=== PATIENT | male | born 1940 | race Caucasian/White ===

== ENCOUNTER 2016-07-25 08:56 | Inpatient (IN) | payer MEDICARE ==
[2016-07-25 09:33] LABS: ABSOLUTE BASOPHILS # (AUTO) 0.2 10^3/uL (0.0-0.2); ABSOLUTE EOSINOPHILS # (AUTO) 0.1 10^3/uL (0.0-0.6); ABSOLUTE LYMPHOCYTES (AUTO) 1.4 10^3/uL (0.5-4.7); ABSOLUTE MONOCYTES (AUTO) 1.5 10^3/uL (0.1-1.4); EOSINOPHILS % (AUTO) 0.7 % (0-6); HEMATOCRIT 36.1 % (37.9-51.0); HEMOGLOBIN 11.8 g/dL (13.5-17.0); HGB HCT DIFFERENCE -0.7; MEAN CORPUSCULAR HEMOGLOBIN 26.2 pg (27.0-33.4); MEAN CORPUSCULAR HGB CONC 32.5 g/dL (32.0-36.0); MEAN CORPUSCULAR VOLUME 81 fl (80-97); RED BLOOD COUNT 4.49 10^6/uL (4.35-5.55); SEGMENTED NEUTROPHILS % (AUTO) 81.3 % (42-78); WHITE BLOOD COUNT 17.2 10^3/uL (4.0-10.5)
[2016-07-25 09:41] LABS: VENOUS BLOOD BASE EXCESS -0.4 mmol/L; VENOUS BLOOD HCO3 24.6 mmol/L (20-32); VENOUS BLOOD PCO2 41.3 mmHg (35-63); VENOUS BLOOD PH 7.39 (7.30-7.42)
[2016-07-25 09:54] LABS: PARTIAL THROMBOPLASTIN TIME 34.9 SEC (23.5-35.8); PROTHROMBIN TIME 14.1 SEC (11.4-15.4)
[2016-07-25 09:55] LABS: ALANINE AMINOTRANSFERASE 20 U/L (21-72); ALBUMIN 3.5 g/dL (3.5-5.0); ALKALINE PHOSPHATASE 595 U/L (38-126); ANION GAP 13 (5-19); ASPARTATE AMINO TRANSFERASE 23 U/L (17-59); BILIRUBIN,TOTAL 0.8 mg/dL (0.2-1.3); BLOOD UREA NITROGEN 20 mg/dL (7-20); CALCIUM 9.2 mg/dL (8.4-10.2); CARBON DIOXIDE 25 mmol/L (22-30); CHLORIDE 102 mmol/L (98-107); CREATINE KINASE 53 U/L (55-170); CREATININE RESULT 1.91 mg/dL (0.52-1.25); GLUCOSE 242 mg/dL (75-110); POTASSIUM 4.7 mmol/L (3.6-5.0); SODIUM 140.4 mmol/L (137-145); TOTAL PROTEIN 6.1 g/dL (6.3-8.2)
[2016-07-25 10:04] LABS: CREATINE KINASE MB 0.89 ng/mL (<4.55)
[2016-07-25 10:07] LABS: TROPONIN I 0.065 ng/mL
[2016-07-25 11:20] LABS: APPEARANCE,URINE SLIGHTLY-CLOUDY; BILIRUBIN,URINE NEGATIVE (NEGATIVE); GLUCOSE, URINE NEGATIVE (NEGATIVE); KETONES,URINE NEGATIVE (NEGATIVE); LEUKOCYTE ESTERASE,URINE NEGATIVE (NEGATIVE); NITRITE,URINE NEGATIVE (NEGATIVE); PROTEIN,URINE 30 mg/dL (NEGATIVE); URINE SPECIFIC GRAVITY 1.018; UROBILINOGEN,URINE NEGATIVE mg/dL (<2.0)
[2016-07-25] MEDS ORDERED: IPRATROPIUM/ALBUTEROL 0.5-2.5 MG/3 ML AMPUL NEB ONE (11:33)
[2016-07-25] MEDS ORDERED: CEFTRIAXONE 1 GM/D5W RTU 50 ML IV ONE (12:52)
--- NOTE | 2016-07-25 12:57 | ER Document Report ---
ED Respiratory Problem - General Chief Complaint: Shortness Of Breath Stated Complaint: DIFFICULTY BREATHING Mode of Arrival: Medic Information source: Patient, Relative - Son Notes: 75-year-old male presents to the emergency department via EMS complaining of shortness of breath. Patient has extensive history including CHF, pacemaker, hypertension, and type II diabetes. Per son patient is not very compliant with medication regimen. Patient reports over the last week has had progressively worsening cough and shortness of breath with associated orthopnea. Reports cough is productive with green and white sputum. Denies fever, chest pain, nausea or vomiting, or diaphoresis. TRAVEL OUTSIDE OF THE [place] IN LAST 30 DAYS: No - HPI Patient complains to provider of: Cough, Short of breath Duration: Worse/persistent Quality of pain: No pain Context: Hx CHF Short of Breath: Mild Cough: Productive Sputum amount: Moderate Sputum color: Green, White Similar symptoms previously: Yes Recently seen / treated by doctor: No - Related Data Allergies/Adverse Reactions: No Known Allergies Allergy (Unverified 07/09/15 12:32) Home Medications: Current Home Medications Amiodarone HCl [Cordarone 200 mg Tablet] 200 mg PO DAILY 07/25/16 [History] Aspirin [Aspirin 325 mg Tablet] 325 mg PO DAILY 07/25/16 [History] Carvedilol [Coreg 12.5 mg Tablet] 12.5 mg PO BID 07/25/16 [History] Digoxin [Lanoxin 0.125 mg Tablet] 0.125 mg PO DAILY 07/25/16 [History] Glimepiride [Amaryl 4 mg Tablet] 4 mg PO BID 07/25/16 [History] Potassium Chloride [K-Tab ER] 20 meq PO DAILY 07/25/16 [History] Simvastatin [Zocor 20 mg Tablet] 20 mg PO QHS 07/25/16 [History] Spironolactone [Aldactone 25 mg Tablet] 25 mg PO QPM 07/25/16 [History] Warfarin Sodium [Coumadin 5 mg Tablet] 5 mg PO QHS 07/25/16 [History] Past Medical History - General Information source: Patient, Relative, Emergency Med Personnel - Social History Smoking Status: Unknown if Ever Smoked Frequency of alcohol use: None Drug Abuse: None Lives with: Alone Family History: Reviewed & Not Pertinent - Past Medical History Cardiac Medical History: Reports: Hx Atrial Fibrillation, Hx Congestive Heart Failure, Hx Heart Attack, Hx Hypertension Endocrine Medical History: Reports: Hx Diabetes Mellitus Type 2 Past Surgical History: Reports: Hx Cardiac Surgery - cabg - Immunizations Hx Diphtheria, Pertussis, Tetanus Vaccination: Yes Review of Systems - Review of Systems Constitutional: See HPI EENT: See HPI Cardiovascular: No symptoms reported Respiratory: See HPI Gastrointestinal: No symptoms reported Genitourinary: No symptoms reported Male Genitourinary: No symptoms reported Musculoskeletal: No symptoms reported Skin: No symptoms reported Hematologic/Lymphatic: No symptoms reported Neurological/Psychological: No symptoms reported -: Yes All other systems reviewed and negative Physical Exam - Vital signs Vitals: Resp Pulse Ox 23 H 93 07/25/16 09:15 07/25/16 09:15 - General General appearance: Appears well, Alert In distress: None - HEENT Head: Normocephalic, Atraumatic Eyes: Normal Pupils: PERRL - Respiratory Respiratory status: No respiratory distress. No: Labored, Tachypnea Chest status: Nontender Breath sounds: Productive cough, Rhonchi - Mild scattered bilaterally, Wheezing - Mild expiratory Chest palpation: Normal - Cardiovascular Rhythm: Regular Heart sounds: Normal auscultation Pulses: Normal: Radial Normal capillary refill: Yes - Abdominal Inspection: Normal Distension: No distension Bowel sounds: Normal Tenderness: Nontender Organomegaly: No organomegaly - Back Back: Normal, Nontender - Extremities General upper extremity: Normal inspection, Nontender, Normal color, Normal ROM , Normal strength, Normal temperature. No: Tender, Edema General lower extremity: Normal inspection, Nontender, Edema - Mild +1 bilateral lower extremity, Normal color, Normal ROM, Normal strength, Normal temperature, Normal weight bearing. No: Tender, Satnam's sign - Neurological Neuro grossly intact: Yes Cognition: Normal Orientation: AAOx4 John Coma Scale Eye Opening: Spontaneous Dalton Coma Scale Verbal: Oriented John Coma Scale Motor: Obeys Commands John Coma Scale Total: 15 Speech: Normal Cranial nerves: Normal Cerebellar coordination: Normal Motor strength normal: LUE, RUE, LLE, RLE Additional motor exam normals: Equal science specialist Sensory: Normal - Skin Skin Temperature: Warm Skin Moisture: Dry Skin Color: Normal Course - Re-evaluation Re-evalutation: 07/25/16 12:45 Patient hemodynamically stable, in no distress, wheezing and rhonchi resolved after DuoNeb. Patient able to ambulate steadily and without assistance on room air without significant dyspnea however O2 saturation remains at 90% on room air. Labs show acute renal failure and chest x-ray questionable for possible pneumonia. Patient presentation and findings with hospitalist Dr. Mccullough who agrees to evaluate patient in the emergency department, assume care, and admit to inpatient telemetry unit. ED physician Dr. Zapata evaluated patient and was collaborated with during evaluation, treatment, and plan. 07/25/16 15:[address] Mccullough aware of patient's repeat troponin. Continue admission plan. - Vital Signs Vital signs: Temp Pulse Resp BP Pulse Ox 98.1 F 41 L 18 117/57 L 98 07/26/16 10:39 07/26/16 10:39 07/26/16 10:39 07/26/16 10:39 07/26/16 10:39 - Laboratory Result Diagrams: 07/26/16 06:30 07/26/16 03:45 Laboratory results interpreted by me: 07/25/16 07/25/16 07/25/16 09:09 09:09 09:09 WBC 17.2 H Hgb 11.8 L Hct 36.1 L MCH 26.2 L RDW 16.0 H Seg Neutrophils % 81.3 H Lymphocytes % 8.0 L Absolute Neutrophils 14.0 H Absolute Monocytes 1.5 H Creatinine 1.91 H Est GFR ( Amer) 42 L Est GFR (Non-Af Amer) 35 L Glucose 242 H ALT 20 L Alkaline Phosphatase 595 H Creatine Kinase 53 L NT-Pro-B Natriuret Pep 4300 H Total Protein 6.1 L Urine Protein Digoxin 07/25/16 07/25/16 09:09 10:48 WBC Hgb Hct MCH RDW Seg Neutrophils % Lymphocytes % Absolute Neutrophils Absolute Monocytes Creatinine Est GFR ( Amer) Est GFR (Non-Af Amer) Glucose ALT Alkaline Phosphatase Creatine Kinase NT-Pro-B Natriuret Pep Total Protein Urine Protein 30 H Digoxin 0.48 L - Diagnostic Test Radiology reviewed: Image reviewed, Reports reviewed - EKG Interpretation by Me EKG shows normal: Sinus rhythm Rate: Normal - paced When compared to previous EKG there are: No significant change Discharge - Discharge Clinical Impression: SOB (shortness of breath) Condition: Stable Disposition: ADMITTED INPATIENT Admitting Provider: Hospitalist - [facility] Admitted: Telemetry
[2016-07-25] MEDS ORDERED: ONDANSETRON HCL INJ/PF 4 MG/2 ML SDV IV PRN (13:38)
[2016-07-25] MEDS ORDERED: ALBUTEROL SULFATE 0.083% NEB 2.5 MG/3 ML AMPUL NEB PRN (13:38)
[2016-07-25] MEDS ORDERED: ONDANSETRON 4 MG TAB.RAPDIS PO PRN (13:38)
[2016-07-25] MEDS ORDERED: DEXTROSE 40% GEL 15 GM TUBE PO PRN ×2 (13:47)
[2016-07-25] MEDS ORDERED: DEXTROSE 50%-WATER 25 GM/50 ML DISP.SYRIN IV PRN ×2 (13:47)
[2016-07-25] MEDS ORDERED: GLUCAGON,HUMAN RECOMB 1 MG INJ IM PRN (13:47)
--- NOTE | 2016-07-25 14:12 | PDOC H&P ---
History of Present Illness Admission Date/PCP: 07/25/16 13:35 STEFANIE CHING MD Patient complains of: Cough and shortness of breath. History of Present Illness: DIEGO CHING is a 75 year old male with history of congestive heart failure as well as atrial fibrillation and diabetes who presents with a 3 to four-day history of worsening shortness of breath. Patient reports that he is felt short of breath mostly with exertion but also at rest. He has had palpitations as well as a productive cough. Patient reports this morning a temperature of 101. He also relates having orthopnea and PND as well as worsening lower extremity edema. He does not weigh himself and has a history of noncompliance and previous state most of his nighttime medications. The patient denies having any chest pain. He does have palpitations but denies any firing off of his defibrillator. Patient has not been checking his blood sugars but has been taking his oral hypoglycemic agents. Past Medical History Cardiac Medical History: Reports: Atrial Fibrillation, Congestive Heart Failure , Myocardial Infarction, Hypertension Pulmonary Medical History: Reports: None EENT Medical History: Reports: None Neurological Medical History: Reports: None Endocrine Medical History: Reports: Diabetes Mellitus Type 2 Renal/ Medical History: Reports: None Malignancy Medical History: Reports: Skin Cancer GI Medical History: Reports: None Musculoskeltal Medical History: Reports: None Psychiatric Medical History: Reports: None Traumatic Medical History: Reports: None Hematology: Reports: None Infectious Medical History: Reports: None Past Surgical History Past Surgical History: Reports: Internal Defibrillator, Pacemaker Social History Information Source: Patient Lives with: Alone Smoking Status: Never Smoker Frequency of Alcohol Use: None Hx Recreational Drug Use: No Drugs: None Hx Prescription Drug Abuse: No - Advance Directive Resuscitation Status: Full Code Surrogate healthcare decision maker:: His son is his surrogate healthcare Family History Family History: Father at age 76 and had CVA and diabetes. Mother at age 64 from coronary artery disease. Parental Family History Reviewed: Yes Children Family History Reviewed: No Sibling(s) Family History Reviewed.: No Medication/Allergy Home Medications: Amiodarone HCl [Cordarone 200 mg Tablet] 200 mg PO DAILY 07/09/15 Aspirin [Aspirin 325 mg Tablet] 325 mg PO DAILY 07/09/15 Carvedilol [Carvedilol] 12.5 mg PO BID 07/09/15 Digoxin [Digox] 0.25 mg PO DAILY 07/09/15 Furosemide [Furosemide] 20 mg PO DAILY 07/09/15 Glimepiride [Glimepiride] 4 mg PO BID 07/09/15 Metformin HCl [Glucophage] 1,000 mg PO BID 07/09/15 Potassium Bicarbonate/Cit AC [Potassium 25 Meq Tab Eff] 25 meq PO DAILY Simvastatin [Simvastatin] 20 mg PO DAILY 07/09/15 Spironolactone [Aldactone 25 mg Tablet] 25 mg PO DAILY 07/09/15 Warfarin Sodium [Coumadin] 2.5 mg PO DAILY 07/09/15 Allergies/Adverse Reactions: No Known Allergies Allergy (Unverified 07/09/15 12:32) Review of Systems Constitutional: PRESENT: fever(s). ABSENT: chills, headache(s), weight gain, weight loss Eyes: ABSENT: visual disturbances Ears: ABSENT: hearing changes Cardiovascular: PRESENT: dyspnea on exertion, edema, orthropnea, palpitations. ABSENT: chest pain Respiratory: PRESENT: cough, dyspnea, sputum. ABSENT: hemoptysis Gastrointestinal: ABSENT: abdominal pain, constipation, diarrhea, hematemesis, hematochezia, nausea, vomiting Genitourinary: ABSENT: dysuria, hematuria Musculoskeletal: ABSENT: joint swelling Neurological: ABSENT: abnormal gait, abnormal speech, confusion, dizziness, focal weakness, syncope Psychiatric: ABSENT: anxiety, depression Endocrine: ABSENT: cold intolerance, heat intolerance, polydipsia, polyuria Hematologic/Lymphatic: ABSENT: easy bleeding, easy bruising Physical Exam Vital Signs: Temp Pulse Resp BP Pulse Ox 98.6 F 81 18 139/90 H 93 07/25/16 09:19 07/25/16 09:19 07/25/16 12:01 07/25/16 12:01 07/25/16 12:01 General appearance: PRESENT: no acute distress Eye exam: PRESENT: conjunctiva pink, EOMI, PERRLA. ABSENT: scleral icterus Ear exam: ABSENT: normal external ear exam - Missing the upper part of his left pinna Neck exam: ABSENT: carotid bruit, JVD, lymphadenopathy, thyromegaly Respiratory exam: PRESENT: rhonchi - Coarse rhonchi bilaterally.. ABSENT: rales , wheezes Cardiovascular exam: PRESENT: RRR. ABSENT: diastolic murmur, rubs, systolic murmur Pulses: PRESENT: normal dorsalis pedis pul Vascular exam: PRESENT: normal capillary refill GI/Abdominal exam: PRESENT: normal bowel sounds, soft. ABSENT: distended, guarding, mass, organolmegaly, rebound, tenderness Rectal exam: PRESENT: deferred Extremities exam: PRESENT: +1 edema. ABSENT: calf tenderness, clubbing Neurological exam: PRESENT: alert, awake, oriented to person, oriented to place , oriented to time, oriented to situation, CN II-XII grossly intact. ABSENT: motor sensory deficit Psychiatric exam: PRESENT: appropriate affect Skin exam: PRESENT: other - Left nares is missing from surgical procedure Results Impressions: Chest X-Ray 07/25/16 08:58 IMPRESSION: Probable scarring in the lateral right lung base. No focal infiltrates. Cardiomegaly. No pulmonary vascular distention. Assessment & Plan - Diagnosis (1) CHF exacerbation Qualifiers: Congestive heart failure type: systolic Qualified Code(s): I50.23 - Acute on chronic systolic (congestive) heart failure Is this a current diagnosis for this admission?: YesPlan: Patient has a history of systolic congestive heart failure. The patient has evidence for volume overload with lower extremity edema orthopnea and PND. We will give IV Lasix. Confounding his treatment may be his elevated creatinine. His creatinine is elevated from his baseline a year ago. Will watch this closely as we diurese. (2) Bronchitis Is this a current diagnosis for this admission?: YesPlan: Patient has had a low-grade fever as well as a productive cough. We'll give Rocephin (3) Diabetes mellitus Is this a current diagnosis for this admission?: YesPlan: Will hold his oral agents and cover with sliding scale insulin. (4) Atrial fibrillation Is this a current diagnosis for this admission?: YesPlan: Patient is on amiodarone as well as having a defibrillator and pacemaker. We' ll continue with his amiodarone and Coreg as well as Coumadin. He is subtherapeutic on his Coumadin. (5) Hypertension Qualifiers: Hypertension type: other secondary hypertension Qualified Code(s): I15.8 - Other secondary hypertension Is this a current diagnosis for this admission?: YesPlan: Continue with the Coreg, Lasix, Aldactone. (6) Anticoagulated Is this a current diagnosis for this admission?: YesPlan: Patient is chronically on Coumadin however he recall he forgets to take this. We will give Lovenox until he is therapeutic again on his Coumadin. (7) Acute renal failure Is this a current diagnosis for this admission?: YesPlan: Patient's creatinine is elevated from last year. Will watch this closely as we diurese. - Time Time Spent: 50 to 70 Minutes - Inpatient Certification Medical Necessity: Need Close Monitoring Due to Risk of Patient Decompensation - Plan Summary Plan Summary: Patient will be admitted as a inpatient as I anticipate he will require greater than a 2 midnight hospital stay to treat his acute congestive heart failure.
[2016-07-25 15:05] LABS: HEMATOCRIT 36.4 % (37.9-51.0); HGB HCT DIFFERENCE -0.4; MEAN CORPUSCULAR HEMOGLOBIN 26.3 pg (27.0-33.4); MEAN CORPUSCULAR HGB CONC 32.9 g/dL (32.0-36.0); MEAN CORPUSCULAR VOLUME 80 fl (80-97); RED BLOOD COUNT 4.56 10^6/uL (4.35-5.55); RED CELL DISTRIBUTION WIDTH 16.1 % (11.5-14.0); WHITE BLOOD COUNT 16.4 10^3/uL (4.0-10.5)
[2016-07-25 15:10] LABS: PARTIAL THROMBOPLASTIN TIME 34.8 SEC (23.5-35.8); PROTHROMBIN TIME 14.8 SEC (11.4-15.4)
[2016-07-25 15:24] LABS: CREATINE KINASE 56 U/L (55-170); CREATININE RESULT 1.77 mg/dL (0.52-1.25)
[2016-07-25 15:38] LABS: CREATINE KINASE MB 1.22 ng/mL (<4.55)
[2016-07-25 15:46] LABS: TROPONIN I 0.211 ng/mL
[2016-07-25] MEDS: ACETAMINOPHEN 325 MG TABLET PO PRN (18:24)
[2016-07-25] MEDS: INSULIN REG, HUMAN 100 UNIT/ML 3 ML VIAL (PYX) SUBCUT PRN (18:24)
[2016-07-25 20:06] LABS: CREATINE KINASE MB 1.25 ng/mL (<4.55)
[2016-07-25 20:13] LABS: TROPONIN I 0.247 ng/mL
[2016-07-25] MEDS: FAMOTIDINE 20 MG TABLET PO SCH (21:46)
[2016-07-25] MEDS: CARVEDILOL 6.25 MG TABLET PO SCH (21:47)
[2016-07-25] MEDS: FUROSEMIDE INJ/PF 40 MG/4 ML SDV IV SCH (21:48)
[2016-07-25] MEDS ORDERED: WARFARIN SODIUM 2.5 MG TABLET PO SCH (22:00)
[2016-07-25] MEDS ORDERED: SIMVASTATIN 10 MG TABLET PO SCH (22:00)
[2016-07-26] MEDS: ACETAMINOPHEN 325 MG TABLET PO PRN (00:35)
[2016-07-26 02:33] LABS: CREATINE KINASE MB 1.3 ng/mL (<4.55)
[2016-07-26 03:09] LABS: TROPONIN I 0.158 ng/mL
[2016-07-26 04:46] LABS: PROTHROMBIN TIME 13.9 SEC (11.4-15.4)
[2016-07-26 05:09] LABS: ANION GAP 12 (5-19); BLOOD UREA NITROGEN 29 mg/dL (7-20); CALCIUM 8.7 mg/dL (8.4-10.2); CARBON DIOXIDE 22 mmol/L (22-30); CHLORIDE 104 mmol/L (98-107); CREATININE RESULT 1.84 mg/dL (0.52-1.25); GLUCOSE 229 mg/dL (75-110); SODIUM 138.2 mmol/L (137-145)
[2016-07-26 07:14] LABS: ABSOLUTE EOSINOPHILS # (AUTO) 0.1 10^3/uL (0.0-0.6); ABSOLUTE LYMPHOCYTES (AUTO) 1.7 10^3/uL (0.5-4.7); ABSOLUTE MONOCYTES (AUTO) 1.1 10^3/uL (0.1-1.4); ABSOLUTE NEUT (AUTO) 8.5 10^3/uL (1.7-8.2); BASOPHILS % (AUTO) 0.4 % (0-2); EOSINOPHILS % (AUTO) 0.8 % (0-6); HEMATOCRIT 33.6 % (37.9-51.0); HEMOGLOBIN 11.1 g/dL (13.5-17.0); HGB HCT DIFFERENCE -0.3; LYMPHOCYTES % (AUTO) 14.9 % (13-45); MEAN CORPUSCULAR HEMOGLOBIN 26.4 pg (27.0-33.4); MEAN CORPUSCULAR VOLUME 80 fl (80-97); MONOCYTES % (AUTO) 9.8 % (3-13); RED BLOOD COUNT 4.21 10^6/uL (4.35-5.55); RED CELL DISTRIBUTION WIDTH 16.1 % (11.5-14.0); SEGMENTED NEUTROPHILS % (AUTO) 74.1 % (42-78); WHITE BLOOD COUNT 11.4 10^3/uL (4.0-10.5)
[2016-07-26] MEDS ORDERED: ENOXAPARIN SODIUM INJ 40 MG/0.4 ML DISP.SYRIN SUBCUT SCH (08:00)
[2016-07-26] MEDS: INSULIN REG, HUMAN 100 UNIT/ML 3 ML VIAL (PYX) SUBCUT PRN (08:24)
[2016-07-26] MEDS: CARVEDILOL 6.25 MG TABLET PO SCH (09:23)
[2016-07-26] MEDS: FAMOTIDINE 20 MG TABLET PO SCH (09:23)
[2016-07-26] MEDS: FUROSEMIDE INJ/PF 40 MG/4 ML SDV IV SCH (09:24)
--- NOTE | 2016-07-26 09:31 | EKG REPORT ---
SEVERITY:- ABNORMAL ECG - ATRIAL-SENSED VENTRICULAR-PACED COMPLEXES : Confirmed by: Michele Franco MD 26-Jul-2016 09:30:05
[2016-07-26 09:52] VITALS: BP 117/57
[2016-07-26] MEDS ORDERED: ASPIRIN 325 MG TABLET PO SCH (10:00)
[2016-07-26] MEDS ORDERED: CEFTRIAXONE 1 GM/D5W RTU 50 ML IV SCH (10:00)
[2016-07-26] MEDS ORDERED: (PENDING PHARMACY ID) (Simvastatin [Simvastatin] 20 MG) PO SCH (10:00)
[2016-07-26] MEDS ORDERED: SPIRONOLACTONE 25 MG TABLET PO SCH (10:00)
[2016-07-26] MEDS ORDERED: AMIODARONE HCL 200 MG TABLET PO SCH (10:00)
--- NOTE | 2016-07-26 15:32 | PDOC DISCHARGE SUMMARY ---
General - Admit/Disc Date/PCP Admission Date/Primary Care Provider: 07/25/16 13:41 STEFANIE CHING MD Discharge Date: 07/26/16 - Discharge Diagnosis (1) CHF exacerbation Is this a current diagnosis for this admission?: YesSummary: Patient had a dramatic recovery with 1 night of IV diuretics (2) Bronchitis Is this a current diagnosis for this admission?: Yes (3) Diabetes mellitus Is this a current diagnosis for this admission?: Yes (4) Atrial fibrillation Is this a current diagnosis for this admission?: Yes (5) Hypertension Is this a current diagnosis for this admission?: Yes (6) Anticoagulated Is this a current diagnosis for this admission?: YesSummary: Patient is subtherapeutic on his Coumadin however he has been noncompliant at home. We will just have him resume his usual outpatient dose and asked him to take it every single day now (7) Acute renal failure Is this a current diagnosis for this admission?: YesSummary: Patient most likely now has chronic renal failure as he has had no real change in his creatinine. this would be stage III renal failure - Additional Information Resuscitation Status: Full Code Discharge Diet: Cardiac, Diabetic Discharge Activity: Activity As Tolerated, Weigh Daily Home Medications: Amiodarone HCl [Cordarone 200 mg Tablet] 200 mg PO DAILY 07/25/16 Aspirin [Aspirin 325 mg Tablet] 325 mg PO DAILY 07/25/16 Carvedilol [Coreg 12.5 mg Tablet] 12.5 mg PO BID 07/25/16 Digoxin [Lanoxin 0.125 mg Tablet] 0.125 mg PO DAILY 07/25/16 Glimepiride [Amaryl 4 mg Tablet] 4 mg PO BID 07/25/16 Potassium Chloride [K-Tab ER] 20 meq PO DAILY 07/25/16 Simvastatin [Zocor 20 mg Tablet] 20 mg PO QHS 07/25/16 Spironolactone [Aldactone 25 mg Tablet] 25 mg PO QPM 07/25/16 Warfarin Sodium [Coumadin 5 mg Tablet] 5 mg PO QHS 07/25/16 Furosemide [Lasix] 40 mg PO BID #60 tablet 07/26/16 History of Present Illness History of Present Illness: DIEGO CHING is a 75 year old male with history of congestive heart failure as well as atrial fibrillation and diabetes who presents with a 3 to four-day history of worsening shortness of breath. Patient reports that he is felt short of breath mostly with exertion but also at rest. He has had palpitations as well as a productive cough. Patient reports this morning a temperature of 101. He also relates having orthopnea and PND as well as worsening lower extremity edema. He does not weigh himself and has a history of noncompliance and previous state most of his nighttime medications. The patient denies having any chest pain. He does have palpitations but denies any firing off of his defibrillator. Patient has not been checking his blood sugars but has been taking his oral hypoglycemic agents. Hospital Course Hospital Course: 75-year-old gentleman who was admitted with acute on chronic congestive heart failure. Patient was started on IV Lasix and had a unexpectedly quick recovery in his respiratory status and by morning report he was back to his baseline. Was felt that he could be changed back to by mouth Lasix and sent home. The patient was subtherapeutic on his Coumadin. He has not taken his Coumadin every night according to his son. He reports the frequently forgets to take his nighttime medications. Physical Exam Vital Signs: Temp Pulse Resp BP Pulse Ox 98.1 F 41 L 18 117/57 L 98 07/26/16 10:39 07/26/16 10:39 07/26/16 10:39 07/26/16 10:39 07/26/16 10:39 Intake & Output 07/25/16 07/26/16 07/27/16 06:59 06:59 06:59 Intake Total 865 Output Total 3 Balance 862 Weight 89.8 kg General appearance: PRESENT: no acute distress Eye exam: PRESENT: conjunctiva pink. ABSENT: scleral icterus Mouth exam: PRESENT: moist, tongue midline Neck exam: ABSENT: carotid bruit, JVD, lymphadenopathy, thyromegaly Respiratory exam: PRESENT: clear to auscultation salvador. ABSENT: rales, rhonchi, wheezes Cardiovascular exam: PRESENT: RRR. ABSENT: diastolic murmur, rubs, systolic murmur GI/Abdominal exam: PRESENT: normal bowel sounds, soft. ABSENT: distended, guarding, mass, organolmegaly, rebound, tenderness Rectal exam: PRESENT: deferred Extremities exam: ABSENT: calf tenderness, clubbing, pedal edema Neurological exam: PRESENT: alert, awake, oriented to person, oriented to place , oriented to time, oriented to situation Psychiatric exam: PRESENT: appropriate affect Skin exam: PRESENT: dry, intact, warm. ABSENT: cyanosis, rash Results Laboratory Results: 07/26/16 06:30 07/26/16 03:45 07/26/16 07/26/16 07/26/16 03:45 03:45 06:30 WBC Cancelled 11.4 H RBC Cancelled 4.21 L Hgb Cancelled 11.1 L Hct Cancelled 33.6 L MCV Cancelled 80 MCH Cancelled 26.4 L MCHC Cancelled 33.0 RDW Cancelled 16.1 H Plt Count Cancelled 240 Seg Neutrophils % Cancelled 74.1 Lymphocytes % Cancelled 14.9 Monocytes % Cancelled 9.8 Eosinophils % Cancelled 0.8 Basophils % Cancelled 0.4 Absolute Neutrophils Cancelled 8.5 H Absolute Lymphocytes Cancelled 1.7 Absolute Monocytes Cancelled 1.1 Absolute Eosinophils Cancelled 0.1 Absolute Basophils Cancelled 0.0 Sodium 138.2 Potassium 5.0 Chloride 104 Carbon Dioxide 22 Anion Gap 12 BUN 29 H Creatinine 1.84 H Est GFR ( Amer) 44 L Est GFR (Non-Af Amer) 36 L Glucose 229 H Calcium 8.7 Magnesium 2.0 07/25/16 07/25/16 07/25/16 14:53 14:53 19:25 Creatine Kinase 56 57 CK-MB (CK-2) 1.22 Troponin I 0.211 07/25/16 07/26/16 07/26/16 19:25 01:51 01:51 Creatine Kinase 55 CK-MB (CK-2) 1.25 1.30 Troponin I 0.247 0.158 Impressions: Chest X-Ray 07/25/16 08:58 IMPRESSION: Probable scarring in the lateral right lung base. No focal infiltrates. Cardiomegaly. No pulmonary vascular distention. Qualifiers PATEINT BEING DISCHARGED WITH ANY OF THE FOLLOWING DIAGNOSIS?: Heart Failure HF Pt being discharged on ACEI for LVEF less than 40%?: Yes Reason(s) for not prescribing ARBS:: Contraindicated HF Pt with Afib discharged with Warfarin?: Yes HF Pt discharged on evidence-based Beta Karla?: Yes Plan Discharge Plan: Patient is discharged home with follow-up his primary care doctor in 1 week. Time Spent: Less than 30 Minutes
== END 2016-07-26 11:36 | disposition home or self-care (01) | DRG 291 ==
LOC: ER 08:56 → EH 13:35 → UNDOADMIN 13:35 → EH 13:41 → 5 15:58
PROVIDERS: ADMIT Internal Medicine; ATTEND Internal Medicine
DX: I13.0 Hypertensive heart and chronic kidney disease with heart failure and stage 1 through stage 4 chronic kidney disease, or unspecified chronic kidney disease (principal); I50.23 Acute on chronic systolic (congestive) heart failure; N17.9 Acute kidney failure, unspecified; E11.22 Type 2 diabetes mellitus with diabetic chronic kidney disease; N18.3 Chronic kidney disease, stage 3 (moderate); J40 Bronchitis, not specified as acute or chronic; I48.0 Paroxysmal atrial fibrillation; I25.2 Old myocardial infarction; Z79.82 Long term (current) use of aspirin; Z79.01 Long term (current) use of anticoagulants; Z79.84 Long term (current) use of oral hypoglycemic drugs; Z95.810 Presence of automatic (implantable) cardiac defibrillator; Z91.14 Patient's other noncompliance with medication regimen
CPT/HCPCS: 36415; 71010; 80048; 80053; 80162; 81001; 82550; 82553; 82565; 82803; 82962; 83735; 83880; 84484; 85025; 85027; 85610; 85730; 87040; 93005; 93010; 94640; 96365; 99285; J0696; J1650; J1815; J1940; J3490; J7620

== ENCOUNTER 2016-10-01 15:31 | Inpatient (IN) | payer MEDICARE ==
[2016-10-01] MEDS ORDERED: ASPIRIN 81 MG TABLET, CHEWABLE PO ONE (15:37)
[2016-10-01 15:50] LABS: ABSOLUTE BASOPHILS # (AUTO) 0.1 10^3/uL (0.0-0.2); ABSOLUTE EOSINOPHILS # (AUTO) 0.2 10^3/uL (0.0-0.6); ABSOLUTE LYMPHOCYTES (AUTO) 1.6 10^3/uL (0.5-4.7); ABSOLUTE MONOCYTES (AUTO) 0.6 10^3/uL (0.1-1.4); ABSOLUTE NEUT (AUTO) 8.9 10^3/uL (1.7-8.2); BASOPHILS % (AUTO) 1.1 % (0-2); EOSINOPHILS % (AUTO) 1.5 % (0-6); HEMATOCRIT 37.4 % (37.9-51.0); HEMOGLOBIN 12.1 g/dL (13.5-17.0); HGB HCT DIFFERENCE -1.1; LYMPHOCYTES % (AUTO) 14.2 % (13-45); MEAN CORPUSCULAR HEMOGLOBIN 26.3 pg (27.0-33.4); MEAN CORPUSCULAR HGB CONC 32.4 g/dL (32.0-36.0); MEAN CORPUSCULAR VOLUME 81 fl (80-97); MONOCYTES % (AUTO) 5.7 % (3-13); RED BLOOD COUNT 4.61 10^6/uL (4.35-5.55); SEGMENTED NEUTROPHILS % (AUTO) 77.5 % (42-78); WHITE BLOOD COUNT 11.5 10^3/uL (4.0-10.5)
[2016-10-01 15:57] LABS: PROTHROMBIN TIME 35.5 SEC (11.4-15.4)
[2016-10-01] MEDS ORDERED: FUROSEMIDE INJ/PF 40 MG/4 ML SDV IV ONE (16:07)
[2016-10-01 16:11] LABS: ALANINE AMINOTRANSFERASE 19 U/L (21-72); ALBUMIN 3.7 g/dL (3.5-5.0); ALKALINE PHOSPHATASE 261 U/L (38-126); ANION GAP 15 (5-19); ASPARTATE AMINO TRANSFERASE 19 U/L (17-59); BILIRUBIN,DIRECT 0.3 mg/dL (0.0-0.4); BILIRUBIN,TOTAL 0.6 mg/dL (0.2-1.3); BLOOD UREA NITROGEN 26 mg/dL (7-20); CALCIUM 8.6 mg/dL (8.4-10.2); CARBON DIOXIDE 24 mmol/L (22-30); CHLORIDE 102 mmol/L (98-107); CREATINE KINASE 51 U/L (55-170); CREATININE RESULT 1.83 mg/dL (0.52-1.25); DIGOXIN 1.09 ng/mL (0.8-2.0); GLUCOSE 278 mg/dL (75-110); MAGNESIUM 1.5 mg/dL (1.6-2.3); POTASSIUM 5.5 mmol/L (3.6-5.0); SODIUM 141.3 mmol/L (137-145); TOTAL PROTEIN 6.3 g/dL (6.3-8.2)
[2016-10-01 16:21] LABS: CREATINE KINASE MB 1.17 ng/mL (<4.55)
[2016-10-01 16:33] LABS: TROPONIN I 0.04 ng/mL
--- NOTE | 2016-10-01 17:07 | EKG REPORT ---
SEVERITY:- ABNORMAL ECG - AFIB/FLUTTER AND VENTRICULAR-PACED RHYTHM : Confirmed by: Roger Anderson 01-Oct-2016 17:06:47
[2016-10-01] MEDS ORDERED: ONDANSETRON 4 MG TAB.RAPDIS PO PRN (17:41)
[2016-10-01] MEDS ORDERED: ONDANSETRON HCL INJ/PF 4 MG/2 ML SDV IV PRN (17:41)
[2016-10-01] MEDS ORDERED: ALBUTEROL SULFATE 0.083% NEB 2.5 MG/3 ML AMPUL NEB PRN (17:41)
[2016-10-01] MEDS ORDERED: DEXTROSE 50%-WATER 25 GM/50 ML DISP.SYRIN IV PRN ×2 (17:46)
[2016-10-01] MEDS ORDERED: INSULIN LISPRO 100 UNIT/ML 3 ML VIAL SUBCUT PRN (17:46)
[2016-10-01] MEDS ORDERED: GLUCAGON,HUMAN RECOMB 1 MG INJ IM PRN (17:46)
[2016-10-01] MEDS ORDERED: DEXTROSE 40% GEL 15 GM TUBE PO PRN ×2 (17:46)
--- NOTE | 2016-10-01 17:56 | PDOC H&P ---
History of Present Illness Admission Date/PCP: 10/01/16 17:19 BLAYNE CHING MD Patient complains of: Shortness of breath History of Present Illness: DIEGO CHING is a 75 year old male who was admitted to our service last month with congestive heart failure who presents with the same. Patient reports that over the last 2 weeks he has had progressive worsening of his shortness of breath as well as orthopnea PND and some worsening lower extremity edema. Patient reports that he began having more shortness of breath today and decided to come in. The patient denies any chest pain. Denies any palpitations or tachycardia. He does have two-pillow orthopnea. He has atrial fibrillation but reports his heart rates been under control. He in the past has had problems with noncompliance however he reports that he's been taking his medications as prescribed. He denies any dietary indiscretions. Past Medical History Cardiac Medical History: Reports: Atrial Fibrillation, Congestive Heart Failure , Myocardial Infarction, Hypertension Pulmonary Medical History: Reports: None EENT Medical History: Reports: None Neurological Medical History: Reports: None Endocrine Medical History: Reports: Diabetes Mellitus Type 2 Renal/ Medical History: Reports: Chronic Kidney Disease Malignancy Medical History: Reports: Skin Cancer GI Medical History: Reports: None Skin Medical History: Reports: None Psychiatric Medical History: Reports: None Traumatic Medical History: Reports: None Hematology: Reports: None Infectious Medical History: Reports: None Past Surgical History Past Surgical History: Reports: Internal Defibrillator, Pacemaker Social History Information Source: Patient Lives with: Spouse/Significant other Smoking Status: Never Smoker Frequency of Alcohol Use: None Hx Recreational Drug Use: No Drugs: None Hx Prescription Drug Abuse: No - Advance Directive Resuscitation Status: Full Code Family History Family History: Father at 76 and had a CVA as well as diabetes. Mother at 64 from coronary artery disease. Parental Family History Reviewed: Yes Children Family History Reviewed: No Sibling(s) Family History Reviewed.: No Medication/Allergy Home Medications: Amiodarone HCl [Cordarone 200 mg Tablet] 200 mg PO DAILY 07/25/16 Aspirin [Aspirin 325 mg Tablet] 325 mg PO DAILY 07/25/16 Carvedilol [Coreg 12.5 mg Tablet] 12.5 mg PO BID 07/25/16 Digoxin [Lanoxin 0.125 mg Tablet] 0.125 mg PO DAILY 07/25/16 Glimepiride [Amaryl 4 mg Tablet] 4 mg PO BID 07/25/16 Potassium Chloride [K-Tab ER] 20 meq PO DAILY 07/25/16 Simvastatin [Zocor 20 mg Tablet] 20 mg PO QHS 07/25/16 Spironolactone [Aldactone 25 mg Tablet] 25 mg PO QPM 07/25/16 Warfarin Sodium [Coumadin 5 mg Tablet] 5 mg PO QHS 07/25/16 Furosemide [Lasix] 40 mg PO BID #60 tablet 07/26/16 Allergies/Adverse Reactions: No Known Allergies Allergy (Unverified 07/09/15 12:32) Review of Systems Constitutional: PRESENT: weight gain. ABSENT: chills, fever(s), headache(s) Eyes: ABSENT: visual disturbances Ears: ABSENT: hearing changes Cardiovascular: PRESENT: dyspnea on exertion, edema, orthropnea. ABSENT: chest pain, palpitations Respiratory: PRESENT: cough, dyspnea. ABSENT: hemoptysis, sputum Gastrointestinal: ABSENT: abdominal pain, constipation, diarrhea, hematemesis, hematochezia, nausea, vomiting Genitourinary: ABSENT: dysuria, hematuria Musculoskeletal: ABSENT: joint swelling Neurological: ABSENT: abnormal gait, abnormal speech, confusion, dizziness, focal weakness, syncope Psychiatric: ABSENT: anxiety, depression Endocrine: ABSENT: cold intolerance, heat intolerance, polydipsia, polyuria Hematologic/Lymphatic: ABSENT: easy bleeding, easy bruising Physical Exam Vital Signs: Temp Pulse Resp BP Pulse Ox 97.7 F 15 128/57 H 98 10/01/16 15:47 10/01/16 17:01 10/01/16 17:01 10/01/16 17:01 General appearance: PRESENT: no acute distress, mild distress Head exam: PRESENT: atraumatic, normocephalic Eye exam: PRESENT: conjunctiva pink, EOMI, PERRLA. ABSENT: scleral icterus Ear exam: PRESENT: normal external ear exam Mouth exam: PRESENT: moist, tongue midline Neck exam: PRESENT: JVD. ABSENT: carotid bruit, lymphadenopathy, thyromegaly Respiratory exam: PRESENT: rales - Bibasilar rails. ABSENT: rhonchi, wheezes Cardiovascular exam: PRESENT: RRR. ABSENT: diastolic murmur, rubs, systolic murmur Pulses: PRESENT: normal dorsalis pedis pul GI/Abdominal exam: PRESENT: normal bowel sounds, soft. ABSENT: distended, guarding, mass, organolmegaly, rebound, tenderness Rectal exam: PRESENT: deferred Extremities exam: PRESENT: pedal edema - Trace pretibial edema.. ABSENT: calf tenderness, clubbing Neurological exam: PRESENT: alert, awake, oriented to person, oriented to place , oriented to time, oriented to situation, CN II-XII grossly intact. ABSENT: motor sensory deficit Psychiatric exam: PRESENT: appropriate affect Skin exam: PRESENT: dry, intact, warm. ABSENT: cyanosis, rash Results Impressions: Chest X-Ray 10/01/16 15:37 IMPRESSION: Cardiomegaly with pulmonary vascular prominence but no anoop CHF. Assessment & Plan - Diagnosis (1) Respiratory distress Is this a current diagnosis for this admission?: YesPlan: Patient has acute respiratory distress secondary to congestive heart failure. Patient is currently on a BiPAP and we will continue with that as well as IV Lasix. (2) CHF exacerbation Qualifiers: Is this a current diagnosis for this admission?: YesPlan: Patient has acute systolic congestive heart failure. Will continue BiPAP and IV Lasix. The patient does not have evidence for an acute cardiac event however we will check serial cardiac enzymes to make certain that there is been no acute cardiac event. (3) Chronic renal failure, stage 4 (severe) Is this a current diagnosis for this admission?: YesPlan: Patient has chronic renal failure and is volume overloaded. We'll need to monitor the creatinine closely as we diurese this patient. (4) Atrial fibrillation Is this a current diagnosis for this admission?: YesPlan: Patient has a paced rhythm currently. He is on amiodarone and Coreg. (5) Diabetes mellitus Is this a current diagnosis for this admission?: YesPlan: We'll hold his oral agents and cover with sliding scale insulin. (6) Hypertension Is this a current diagnosis for this admission?: YesPlan: We'll continue with Lasix, Aldactone, Coreg. - Time Time Spent: 50 to 70 Minutes - Inpatient Certification Medical Necessity: Need Close Monitoring Due to Risk of Patient Decompensation - Plan Summary Plan Summary: We'll admit as observation as I anticipate this will require greater than a 2 midnight hospital stay because of his need for IV diuretics.
--- NOTE | 2016-10-01 19:04 | ER Document Report ---
ED General - General Chief Complaint: Respiratory Distress Stated Complaint: DIFFICULTY BREATHING Time Seen by Provider: 10/01/16 15:37 TRAVEL OUTSIDE OF THE [place] IN LAST 30 DAYS: No - HPI Patient complains to provider of: respiratory distress Notes: Patient coming in for evaluation at rest or distress. Patient has a history of CHF. Patient states was breath ongoing for the last few days worse today. Upon arrival patient was found by EMS to be hypoxic rails throughout was given Nitropaste and placed on C Pap. Patient's transport during this time patient did have improvement of his shortness of breath. Patient also was given a breathing treatment. Patient was transitioned from sleep apnea BiPAP here in the ER. Patient remained to have stable vital signs while here patient denies any chest pain abdominal pain states possibility of not compliant with diet. States compliance with his medication. Denies fevers chills nausea vomiting recent travel - Related Data Allergies/Adverse Reactions: No Known Allergies Allergy (Unverified 07/09/15 12:32) Past Medical History - Social History Smoking Status: Never Smoker Chew tobacco use (# tins/day): No Frequency of alcohol use: None Drug Abuse: None Lives with: Spouse/Significant other Family History: Reviewed & Not Pertinent - Past Medical History Cardiac Medical History: Reports: Hx Atrial Fibrillation, Hx Congestive Heart Failure, Hx Heart Attack, Hx Hypertension Pulmonary Medical History: Reports: None EENT Medical History: Reports: None Neurological Medical History: Reports: None Endocrine Medical History: Reports: Hx Diabetes Mellitus Type 2 Malignancy Medical History: Reports Hx Skin Cancer GI Medical History: Reports: None Skin Medical History: Reports None Psychiatric Medical History: Reports: None Traumatic Medical History: Reports: None Infectious Medical History: Reports: None Past Surgical History: Reports: Hx Cardiac Surgery - cabg, Hx Internal Defibrillator, Hx Pacemaker - Immunizations Hx Diphtheria, Pertussis, Tetanus Vaccination: Yes Review of Systems - Review of Systems Constitutional: No symptoms reported EENT: No symptoms reported Cardiovascular: No symptoms reported Respiratory: Short of breath Gastrointestinal: No symptoms reported Genitourinary: No symptoms reported Male Genitourinary: No symptoms reported Musculoskeletal: No symptoms reported Skin: No symptoms reported Hematologic/Lymphatic: No symptoms reported Neurological/Psychological: No symptoms reported -: Yes All other systems reviewed and negative Physical Exam - Vital signs Vitals: Resp Pulse Ox 18 97 10/01/16 15:46 10/01/16 15:46 Interpretation: Normal - General General appearance: Appears well, Alert - HEENT Head: Normocephalic, Atraumatic Eyes: Normal Pupils: PERRL - Respiratory Respiratory status: Respiratory distress - Moderate Chest status: Nontender Breath sounds: Rales Chest palpation: Normal - Cardiovascular Rhythm: Regular Heart sounds: Normal auscultation Murmur: No - Abdominal Inspection: Normal Distension: No distension Bowel sounds: Normal Tenderness: Nontender Organomegaly: No organomegaly - Back Back: Normal, Nontender - Extremities General upper extremity: Normal inspection, Nontender, Normal color, Normal ROM , Normal temperature General lower extremity: Normal inspection, Nontender, Normal color, Normal ROM , Normal temperature, Normal weight bearing. No: Satnam's sign - Neurological Neuro grossly intact: Yes Cognition: Normal Orientation: AAOx4 John Coma Scale Eye Opening: Spontaneous [place] Coma Scale Verbal: Oriented [place] Coma Scale Motor: Obeys Commands John Coma Scale Total: 15 Speech: Normal Motor strength normal: LUE, RUE, LLE, RLE Sensory: Normal - Psychological Associated symptoms: Normal affect, Normal mood - Skin Skin Temperature: Warm Skin Moisture: Dry Skin Color: Normal Course - Re-evaluation Re-evalutation: 10/01/16 19:03 Patient's lab work is and chest x-rays consistent with CHF exacerbation. Patient does have chronic renal insufficiency mildly elevated potassium. Patient was given a dose of Lasix. Patient continue on BiPAP with great improvement. Discussed with hospitalist agrees with admission - Vital Signs Vital signs: Temp Pulse Resp BP Pulse Ox 97.7 F 15 128/57 H 98 10/01/16 15:47 10/01/16 17:01 10/01/16 17:01 10/01/16 17:01 - Laboratory Result Diagrams: 10/01/16 15:35 10/01/16 15:35 Laboratory results interpreted by me: 10/01/16 10/01/16 10/01/16 15:35 15:35 15:35 WBC 11.5 H Hgb 12.1 L Hct 37.4 L MCH 26.3 L RDW 19.0 H Absolute Neutrophils 8.9 H PT 35.5 H Potassium 5.5 H BUN 26 H Creatinine 1.83 H Est GFR ( Amer) 44 L Est GFR (Non-Af Amer) 36 L Glucose 278 H Magnesium 1.5 L ALT 19 L Alkaline Phosphatase 261 H Creatine Kinase 51 L NT-Pro-B Natriuret Pep 10/01/16 15:35 WBC Hgb Hct MCH RDW Absolute Neutrophils PT Potassium BUN Creatinine Est GFR ( Amer) Est GFR (Non-Af Amer) Glucose Magnesium ALT Alkaline Phosphatase Creatine Kinase NT-Pro-B Natriuret Pep 3290 H Critical Care Note - Critical Care Note Total time excluding time spent on procedures (mins): 35 Comments: Multiple evaluation patient with pressure stress on BiPAP. Discharge - Discharge Clinical Impression: Respiratory distress Condition: Fair Disposition: ADMITTED INPATIENT
[2016-10-01] MEDS ORDERED: WARFARIN SODIUM 5 MG TABLET PO SCH (22:00)
[2016-10-01] MEDS ORDERED: FAMOTIDINE 20 MG TABLET PO SCH (22:00)
[2016-10-01] MEDS ORDERED: (PENDING PHARMACY ID) (Warfarin Sodium 5 MG) PO SCH (22:00)
[2016-10-01 22:05] LABS: CREATINE KINASE MB 1.47 ng/mL (<4.55)
[2016-10-01 22:12] LABS: TROPONIN I 0.229 ng/mL
[2016-10-01] MEDS: SIMVASTATIN 10 MG TABLET PO SCH (23:48)
[2016-10-01] MEDS: CARVEDILOL 12.5 MG TABLET PO SCH (23:49)
[2016-10-02] MEDS: SPIRONOLACTONE 25 MG TABLET PO SCH ×2 (00:06→17:02)
[2016-10-02 00:30] LABS: APPEARANCE,URINE CLEAR; BILIRUBIN,URINE NEGATIVE (NEGATIVE); GLUCOSE, URINE NEGATIVE (NEGATIVE); KETONES,URINE NEGATIVE (NEGATIVE); LEUKOCYTE ESTERASE,URINE NEGATIVE (NEGATIVE); NITRITE,URINE NEGATIVE (NEGATIVE); PROTEIN,URINE NEGATIVE (NEGATIVE); URINE SPECIFIC GRAVITY 1.008; UROBILINOGEN,URINE NEGATIVE mg/dL (<2.0)
[2016-10-02] MEDS: ACETAMINOPHEN 325 MG TABLET PO PRN ×3 (00:49→22:14)
[2016-10-02 03:45] LABS: HEMATOCRIT 32.7 % (37.9-51.0); HEMOGLOBIN 10.8 g/dL (13.5-17.0); HGB HCT DIFFERENCE -0.3; MEAN CORPUSCULAR HEMOGLOBIN 26.5 pg (27.0-33.4); MEAN CORPUSCULAR HGB CONC 33.1 g/dL (32.0-36.0); MEAN CORPUSCULAR VOLUME 80 fl (80-97); RED BLOOD COUNT 4.09 10^6/uL (4.35-5.55); RED CELL DISTRIBUTION WIDTH 18.6 % (11.5-14.0); WHITE BLOOD COUNT 10.2 10^3/uL (4.0-10.5)
[2016-10-02 03:48] LABS: PROTHROMBIN TIME 31.3 SEC (11.4-15.4)
[2016-10-02 03:58] LABS: ANION GAP 12 (5-19); BLOOD UREA NITROGEN 34 mg/dL (7-20); CALCIUM 8.8 mg/dL (8.4-10.2); CARBON DIOXIDE 28 mmol/L (22-30); CHLORIDE 105 mmol/L (98-107); CREATINE KINASE 84 U/L (55-170); CREATININE RESULT 2.12 mg/dL (0.52-1.25); GLUCOSE 105 mg/dL (75-110); MAGNESIUM 1.7 mg/dL (1.6-2.3); SODIUM 144.8 mmol/L (137-145)
[2016-10-02 04:02] LABS: CREATINE KINASE MB 1.85 ng/mL (<4.55)
[2016-10-02 04:17] LABS: TROPONIN I 0.222 ng/mL
[2016-10-02] MEDS: FUROSEMIDE 40 MG TABLET PO SCH (09:36)
[2016-10-02] MEDS: AMIODARONE HCL 200 MG TABLET PO SCH (09:36)
[2016-10-02] MEDS: FAMOTIDINE 20 MG TABLET PO SCH (09:36)
[2016-10-02] MEDS: ASPIRIN 325 MG TABLET PO SCH (09:39)
[2016-10-02] MEDS: CARVEDILOL 12.5 MG TABLET PO SCH ×2 (09:39→22:15)
[2016-10-02] MEDS: DIGOXIN 0.125 MG TABLET PO SCH (09:39)
[2016-10-02] MEDS: POTASSIUM CHLORIDE 10 MEQ TABLET.SA PO SCH (09:40)
[2016-10-02] MEDS ORDERED: (PENDING PHARMACY ID) (Potassium Chloride [K-Tab Er] 20 MEQ) PO SCH (10:00)
[2016-10-02] MEDS ORDERED: FUROSEMIDE INJ/PF 40 MG/4 ML SDV IV SCH (10:00)
--- NOTE | 2016-10-02 10:33 | PDOC PROGRESS REPORT ---
Subjective Progress Note for:: 10/02/16 Subjective:: Patient reports that his breathing is doing much better. Physical Exam Vital Signs: Temp Pulse Resp BP Pulse Ox 97.8 F 62 19 113/64 100 10/02/16 07:33 10/02/16 07:33 10/02/16 07:33 10/02/16 07:33 10/02/16 07:33 Intake & Output 10/01/16 10/02/16 10/03/16 06:59 06:59 06:59 Intake Total 522 Output Total 50 Balance 472 Weight 85.4 kg General appearance: PRESENT: no acute distress Eye exam: PRESENT: conjunctiva pink. ABSENT: scleral icterus Mouth exam: PRESENT: moist, tongue midline Neck exam: ABSENT: JVD Respiratory exam: PRESENT: clear to auscultation [place]. ABSENT: rales, rhonchi, wheezes Cardiovascular exam: PRESENT: RRR. ABSENT: diastolic murmur, rubs, systolic murmur GI/Abdominal exam: PRESENT: normal bowel sounds, soft. ABSENT: distended, guarding, mass, organolmegaly, rebound, tenderness Extremities exam: ABSENT: calf tenderness, clubbing, pedal edema Neurological exam: PRESENT: alert, awake, oriented to person, oriented to place , oriented to time, oriented to situation, CN II-XII grossly intact. ABSENT: motor sensory deficit Psychiatric exam: PRESENT: appropriate affect Skin exam: PRESENT: dry, intact, warm. ABSENT: cyanosis, rash Results Laboratory Results: 10/02/16 03:29 10/02/16 03:29 10/01/16 10/02/16 10/02/16 23:50 03:29 03:29 WBC 10.2 RBC 4.09 L Hgb 10.8 L Hct 32.7 L MCV 80 MCH 26.5 L MCHC 33.1 RDW 18.6 H Plt Count 211 Sodium 144.8 Potassium 5.0 Chloride 105 Carbon Dioxide 28 Anion Gap 12 BUN 34 H Creatinine 2.12 H Est GFR ( Amer) 37 L Est GFR (Non-Af Amer) 31 L Glucose 105 Calcium 8.8 Magnesium 1.7 Urine Color STRAW Urine Appearance CLEAR Urine pH 5.0 Ur Specific [place] 1.008 Urine Protein NEGATIVE Urine Glucose (UA) NEGATIVE Urine Ketones NEGATIVE Urine Blood NEGATIVE Urine Nitrite NEGATIVE Ur Leukocyte Esterase NEGATIVE Urine WBC (Auto) 0 Urine RBC (Auto) 1 10/01/16 10/01/16 10/02/16 21:35 21:35 03:29 Creatine Kinase 48 L CK-MB (CK-2) 1.47 1.85 Troponin I 0.229 0.222 10/02/16 03:29 Creatine Kinase 84 CK-MB (CK-2) Troponin I Impressions: Chest X-Ray 10/01/16 15:37 IMPRESSION: Cardiomegaly with pulmonary vascular prominence but no anoop CHF. Assessment & Plan - Diagnosis (1) Respiratory distress Is this a current diagnosis for this admission?: YesPlan: Patient has acute respiratory distress secondary to congestive heart failure. Patient is dramatically improved from yesterday. We'll DC the IV Lasix and give by mouth Lasix. (2) CHF exacerbation Qualifiers: Is this a current diagnosis for this admission?: YesPlan: Patient has acute systolic congestive heart failure. Patient is much improved. Will DC the IV Lasix and start on by mouth Lasix. Patient's cardiac enzymes were up slightly however this most likely was secondary to the acute congestive heart failure. He denies having any chest pain. (3) Chronic renal failure, stage 4 (severe) Is this a current diagnosis for this admission?: YesPlan: Patient has chronic renal failure and his creatinine has worsened with IV diuresis. He appears to be euvolemic now we will switch to by mouth Lasix and continue to monitor his creatinine. (4) Atrial fibrillation Is this a current diagnosis for this admission?: YesPlan: Patient has a paced rhythm currently. He is on amiodarone and Coreg. (5) Diabetes mellitus Is this a current diagnosis for this admission?: YesPlan: We'll hold his oral agents and cover with sliding scale insulin. (6) Hypertension Is this a current diagnosis for this admission?: YesPlan: We'll continue with Lasix, Aldactone, Coreg. - Time Time Spent with patient: 25-34 minutes - Inpatient Certification Medical Necessity: Need Close Monitoring Due to Risk of Patient Decompensation - Plan Summary Plan Summary: If his creatinine stabilizes we can hopefully discharge home tomorrow.
[2016-10-02 11:00] LABS: CREATINE KINASE MB 1.95 ng/mL (<4.55); TROPONIN I 0.131 ng/mL
--- NOTE | 2016-10-02 13:53 | EKG REPORT ---
SEVERITY:- ABNORMAL ECG - VENTRICULAR-PACED RHYTHM : Confirmed by: Roger Anderson 02-Oct-2016 13:52:47
[2016-10-02] MEDS ORDERED: WARFARIN SODIUM 2.5 MG TABLET PO SCH (22:00)
[2016-10-02] MEDS: SIMVASTATIN 10 MG TABLET PO SCH (22:15)
[2016-10-03 05:17] LABS: PROTHROMBIN TIME 25.2 SEC (11.4-15.4)
[2016-10-03 05:30] LABS: ANION GAP 15 (5-19); BLOOD UREA NITROGEN 37 mg/dL (7-20); CARBON DIOXIDE 25 mmol/L (22-30); CHLORIDE 103 mmol/L (98-107); CREATININE RESULT 2.02 mg/dL (0.52-1.25); GLUCOSE 93 mg/dL (75-110); POTASSIUM 4.3 mmol/L (3.6-5.0); SODIUM 143.2 mmol/L (137-145)
[2016-10-03] MEDS: ASPIRIN 325 MG TABLET PO SCH (08:30)
[2016-10-03] MEDS: DIGOXIN 0.125 MG TABLET PO SCH (08:30)
[2016-10-03] MEDS: POTASSIUM CHLORIDE 10 MEQ TABLET.SA PO SCH (08:30)
[2016-10-03] MEDS: AMIODARONE HCL 200 MG TABLET PO SCH (08:30)
[2016-10-03] MEDS: FAMOTIDINE 20 MG TABLET PO SCH (08:31)
[2016-10-03] MEDS: CARVEDILOL 12.5 MG TABLET PO SCH (08:31)
[2016-10-03] MEDS: FUROSEMIDE 40 MG TABLET PO SCH (08:31)
[2016-10-03] MEDS: ACETAMINOPHEN 325 MG TABLET PO PRN (08:35)
[2016-10-03 09:51] VITALS: BP 139/50
--- NOTE | 2016-10-03 10:18 | PDOC DISCHARGE SUMMARY ---
General - Admit/Disc Date/PCP Admission Date/Primary Care Provider: 10/01/16 17:41 BLAYNE CHING MD Discharge Date: 10/03/16 - Discharge Diagnosis (1) Respiratory distress Is this a current diagnosis for this admission?: YesSummary: Secondary to acute on chronic systolic congestive heart failure. (2) CHF exacerbation Is this a current diagnosis for this admission?: Yes (3) Chronic renal failure, stage 4 (severe) Is this a current diagnosis for this admission?: Yes (4) Atrial fibrillation Is this a current diagnosis for this admission?: Yes (5) Diabetes mellitus Is this a current diagnosis for this admission?: Yes (6) Hypertension Is this a current diagnosis for this admission?: Yes - Additional Information Resuscitation Status: Full Code Discharge Diet: Cardiac Discharge Activity: Activity As Tolerated, Balance Activity w/Rest, Weigh Daily Home Medications: Amiodarone HCl [Cordarone 200 mg Tablet] 200 mg PO DAILY 10/01/16 Aspirin [Ecotrin 325 mg EC Tablet] 325 mg PO DAILY 10/01/16 Carvedilol [Coreg 12.5 mg Tablet] 12.5 mg PO Q12 10/01/16 Digoxin [Lanoxin 0.125 mg Tablet] 0.0625 mg PO QHS 10/01/16 Furosemide [Lasix] 40 mg PO DAILY 10/01/16 Glimepiride [Amaryl 4 mg Tablet] 4 mg PO BID 10/01/16 Potassium Chloride [K-Tab ER] 20 meq PO DAILY 10/01/16 Simvastatin [Zocor 20 mg Tablet] 20 mg PO QHS 10/01/16 Spironolactone [Aldactone 25 mg Tablet] 25 mg PO WSUPPER 10/01/16 Warfarin Sodium [Coumadin 5 mg Tablet] 2.5 mg PO QHS 10/01/16 History of Present Illness History of Present Illness: DIEGO CHING is a 75 year old male who was admitted to our service last month with congestive heart failure who presents with the same. Patient reports that over the last 2 weeks he has had progressive worsening of his shortness of breath as well as orthopnea PND and some worsening lower extremity edema. Patient reports that he began having more shortness of breath today and decided to come in. The patient denies any chest pain. Denies any palpitations or tachycardia. He does have two-pillow orthopnea. He has atrial fibrillation but reports his heart rates been under control. He in the past has had problems with noncompliance however he reports that he's been taking his medications as prescribed. He denies any dietary indiscretions. Hospital Course Hospital Course: 75-year-old gentleman with chronic systolic congestive heart failure who presented with acute shortness of breath. Be in acute exacerbation of his congestive heart failure. Patient was started on IV Lasix and had quick improvement in his respiratory status. The patient's creatinine however did increase. His IV Lasix was changed to by mouth and he was monitored for another night his creatinine remained stable. His creatinine at discharge is 2. The patient will continue with his outpatient dose of Lasix at 40 mg daily. His other medical problems all were stable during this hospitalization. Physical Exam Vital Signs: Temp Pulse Resp BP Pulse Ox 98.0 F 82 16 139/50 H 95 10/03/16 09:54 10/03/16 09:54 10/03/16 09:54 10/03/16 09:54 10/03/16 09:54 Intake & Output 10/02/16 10/03/16 10/04/16 06:59 06:59 06:59 Intake Total 522 829 Output Total 50 1200 Balance 472 -371 Weight 85.4 kg 86.4 kg General appearance: PRESENT: no acute distress Eye exam: PRESENT: conjunctiva pink. ABSENT: scleral icterus Ear exam: PRESENT: normal external ear exam Mouth exam: PRESENT: moist, tongue midline Neck exam: ABSENT: JVD Respiratory exam: PRESENT: clear to auscultation salv[place]. ABSENT: rales, rhonchi, wheezes Cardiovascular exam: PRESENT: RRR. ABSENT: diastolic murmur, rubs, systolic murmur GI/Abdominal exam: PRESENT: normal bowel sounds, soft. ABSENT: distended, guarding, mass, organolmegaly, rebound, tenderness Extremities exam: ABSENT: calf tenderness, clubbing, pedal edema Neurological exam: PRESENT: alert, awake, oriented to person, oriented to place , oriented to time, oriented to situation, CN II-XII grossly intact. ABSENT: motor sensory deficit Psychiatric exam: PRESENT: appropriate affect Results Laboratory Results: 10/02/16 03:29 10/03/16 03:39 10/03/16 03:39 Sodium 143.2 Potassium 4.3 Chloride 103 Carbon Dioxide 25 Anion Gap 15 BUN 37 H Creatinine 2.02 H Est GFR ( Amer) 39 L Est GFR (Non-Af Amer) 32 L Glucose 93 Calcium 9.0 10/01/16 10/01/16 10/02/16 21:35 21:35 03:29 Creatine Kinase 48 L CK-MB (CK-2) 1.47 1.85 Troponin I 0.229 0.222 10/02/16 10/02/16 10/02/16 03:29 09:49 09:49 Creatine Kinase 84 82 CK-MB (CK-2) 1.95 Troponin I 0.131 Impressions: Chest X-Ray 10/01/16 15:37 IMPRESSION: Cardiomegaly with pulmonary vascular prominence but no anoop CHF. Qualifiers PATEINT BEING DISCHARGED WITH ANY OF THE FOLLOWING DIAGNOSIS?: Heart Failure HF Pt being discharged on ACEI for LVEF less than 40%?: No Reason(s) for not prescribing ACEI:: Drug intolerance HF Pt being discharged on ARBS for LVEF less than 40%?: Yes HF Pt with Afib discharged with Warfarin?: Yes HF Pt discharged on evidence-based Beta Karla:: Yes Plan Discharge Plan: Patient is discharged home in stable condition. Will follow primary care in 1 week. Time Spent: Greater than 30 Minutes
== END 2016-10-03 13:27 | disposition home or self-care (01) | DRG 291 ==
LOC: ER 15:31 → UNDOADMIN 17:19 → EH 17:19 → 3W 22:05
PROVIDERS: ADMIT Internal Medicine; ATTEND Internal Medicine
PROC: 5A09457 Assistance with Respiratory Ventilation, 24-96 Consecutive Hours, Continuous Positive Airway Pressure (ICD-10-PCS; principal; 2016-10-01)
DX: I13.0 Hypertensive heart and chronic kidney disease with heart failure and stage 1 through stage 4 chronic kidney disease, or unspecified chronic kidney disease (principal); I50.23 Acute on chronic systolic (congestive) heart failure; N18.4 Chronic kidney disease, stage 4 (severe); I48.91 Unspecified atrial fibrillation; E11.9 Type 2 diabetes mellitus without complications; E11.22 Type 2 diabetes mellitus with diabetic chronic kidney disease; Z79.02 Long term (current) use of antithrombotics/antiplatelets; Z95.810 Presence of automatic (implantable) cardiac defibrillator; I25.2 Old myocardial infarction; Z85.828 Personal history of other malignant neoplasm of skin; Z82.3 Family history of stroke; Z83.3 Family history of diabetes mellitus; Z82.49 Family history of ischemic heart disease and other diseases of the circulatory system; Z95.1 Presence of aortocoronary bypass graft
CPT/HCPCS: 36415; 71010; 80048; 80053; 80162; 81001; 82550; 82553; 82962; 83735; 83880; 84484; 85025; 85027; 85610; 93005; 93010; 94660; 96374; 99291; J1940; J3490

== ENCOUNTER 2016-12-18 18:40 | Inpatient (IN) | payer MEDICARE ==
--- NOTE | 2016-12-18 19:15 | ER Document Report ---
ED General - General Chief Complaint: Shortness Of Breath Stated Complaint: SHORTNESS OF BREATH Time Seen by Provider: 12/18/16 18:49 Mode of Arrival: Medic Information source: Patient, Emergency Med Personnel TRAVEL OUTSIDE OF THE [place] IN LAST 30 DAYS: No - HPI Onset: Last week - Related Data Allergies/Adverse Reactions: lisinopril Adverse Reaction (Verified 12/18/16 19:12) Past Medical History - General Information source: Patient - Social History Smoking Status: Unknown if Ever Smoked Family History: Reviewed & Not Pertinent - Past Medical History Cardiac Medical History: Reports: Hx Atrial Fibrillation, Hx Congestive Heart Failure, Hx Heart Attack, Hx Hypertension Endocrine Medical History: Reports: Hx Diabetes Mellitus Type 2 Malignancy Medical History: Reports Hx Skin Cancer Past Surgical History: Reports: Hx Cardiac Surgery - cabg, Hx Internal Defibrillator, Hx Pacemaker - Immunizations Hx Diphtheria, Pertussis, Tetanus Vaccination: Yes Hx Pneumococcal Vaccination: 02/24/16 Review of Systems - Review of Systems Constitutional: No symptoms reported EENT: No symptoms reported Cardiovascular: Orthopnea, Dyspnea. denies: Chest pain Gastrointestinal: No symptoms reported Genitourinary: No symptoms reported Male Genitourinary: No symptoms reported Musculoskeletal: No symptoms reported Skin: No symptoms reported Neurological/Psychological: No symptoms reported Physical Exam - Vital signs Vitals: Resp Pulse Ox 20 95 12/18/16 18:48 12/18/16 18:48 - General General appearance: Appears well, Alert - cpap in place satting 96%, no conversational dyspnea - HEENT Head: Normocephalic, Atraumatic Eyes: Normal Pupils: PERRL - Respiratory Respiratory status: No: No respiratory distress, Respiratory distress, Cyanosis , Labored, Pursed lip breathing, Retractions, Tripod position Chest status: Nontender Breath sounds: Decreased air movement Chest palpation: Normal - Cardiovascular Rhythm: Regular Heart sounds: Normal auscultation Murmur: No Friction rub: No Gallop: None auscultated Pulses: Normal: Brachial, Radial, Carotid, Femoral, Popliteal, Posterior tibial , Dorsalis pedis - Abdominal Inspection: Normal Distension: No distension Bowel sounds: Normal Tenderness: Nontender Organomegaly: No organomegaly - Back Back: Normal, Nontender - Extremities General upper extremity: Normal inspection, Nontender, Normal color, Normal ROM , Normal temperature General lower extremity: Normal inspection, Nontender, Normal color, Normal ROM , Normal temperature, Normal weight bearing. No: Satnam's sign - Neurological Neuro grossly intact: Yes Cognition: Normal Orientation: AAOx4 [place] Coma Scale Eye Opening: Spontaneous [place] Coma Scale Verbal: Oriented John Coma Scale Motor: Obeys Commands [place] Coma Scale Total: 15 Speech: Normal Motor strength normal: LUE, RUE, LLE, RLE Sensory: Normal Course - Re-evaluation Re-evalutation: 12/18/16 19:14 The emergency department on CPAP via EMS for chief complaint of shortness of breath. Patient states he has a history of congestive heart failure and his medication show that he is on 80 of Lasix a day as well as spironolactone increasing shortness of breath for the past week EMS found him tripoding with severe shortness of breath and 84% on room air and placed him on the CPAP and give him a breathing treatment for wheezing. Has a history of open heart surgery 11 years ago and Tynan states he has not seen a heart doctor a year denies any cardiac stent. Said he had an increased cough for the past 2-3 weeks with no history of pneumonia. He is also vax-[id number] diabetic with CHF and high blood pressure. Denies being on home oxygen. He is on amiodarone digoxin and spironolactone. On examination he is awake and alert he satting 96% on the CPAP machine with increased respiratory rate I do not appreciate any audible wheezes rales or rhonchi. Acute chest x-ray is performed at the bedside as well as ABG and laboratory evaluation. EKG shows paced rhythm. 12/18/16 22:59 presentation consistent with congestive heart failure I do not feel the patient has pneumonia and he is no cough fever and responded quickly to IV Lasix. Last admission was for congestive heart failure as well. No paced rhythm on EKG no complaints of chest pain. Patient on high doses of Lasix and spironolactone. Right now he is able to be weaned off of the CPAP machine ABG was okay with not hypoxic. At this time is getting admitted to the hospitalist telemetry observation for further assessment and evaluation - Vital Signs Vital signs: Temp Pulse Resp BP Pulse Ox 97.9 F 13 126/51 H 97 12/18/16 19:16 12/18/16 22:30 12/18/16 22:31 12/18/16 22:31 - Laboratory Result Diagrams: 12/18/16 19:00 12/18/16 19:00 Laboratory results interpreted by me: 12/18/16 12/18/16 12/18/16 19:00 19:00 19:00 WBC 13.3 H RBC 4.08 L Hgb 10.6 L Hct 33.1 L MCH 26.1 L RDW 18.4 H Seg Neutrophils % 81.1 H Lymphocytes % 10.6 L Absolute Neutrophils 10.8 H ABG pO2 157.4 H ABG O2 Saturation 99.1 H Potassium 5.8 H BUN 39 H Creatinine 2.24 H Est GFR ( Amer) 35 L Est GFR (Non-Af Amer) 29 L Glucose 240 H NT-Pro-B Natriuret Pep 12/18/16 19:00 WBC RBC Hgb Hct MCH RDW Seg Neutrophils % Lymphocytes % Absolute Neutrophils ABG pO2 ABG O2 Saturation Potassium BUN Creatinine Est GFR ( Amer) Est GFR (Non-Af Amer) Glucose NT-Pro-B Natriuret Pep 2530 H - EKG Interpretation by Me Additional EKG results interpreted by me: 12/18/16 19:15 Patient is a paced rhythm on ekg 12/18/16 23:00 Critical Care Note - Critical Care Note Total time excluding time spent on procedures (mins): 65 Discharge - Discharge Clinical Impression: CHF exacerbation Qualifiers: Congestive heart failure type: unspecified congestive heart failure type Qualified Code(s): I50.9 - Heart failure, unspecified Condition: Stable Disposition: ADMITTED OBSERVATION Admitting Provider: Hospitalist Unit Admitted: Telemetry
[2016-12-18 19:19] LABS: ARTERIAL BLOOD BASE EXCESS -0.8 mmol/L; ARTERIAL BLOOD O2 SATURATION 99.1 % (94-98)
--- NOTE | 2016-12-18 19:19 | RADIOLOGY REPORT (SQ) ---
EXAM DESCRIPTION: CHEST SINGLE VIEW COMPLETED DATE/TIME: 12/18/2016 7:00 pm REASON FOR STUDY: sob COMPARISON: September 2016 EXAM PARAMETERS: NUMBER OF VIEWS: One view. TECHNIQUE: Single frontal radiographic view of the chest acquired. RADIATION DOSE: NA LIMITATIONS: None. FINDINGS: LUNGS AND PLEURA: There is ill-defined increased density in the lung bases which could rep resent atelectatic changes or minimal infiltrates. Remaining lung hou are clear. MEDIASTINUM AND HILAR STRUCTURES: No masses. Contour normal. HEART AND VASCULAR STRUCTURES: Cardiac silhouette remains enlarged. There is mild pulmonary vascular congestion. BONES: No acute findings. HARDWARE: Patient is status post median sternotomy. AICD device is unchanged in position. OTHER: No other significant finding. IMPRESSION: Minimal basilar densities which could represent atelectatic changes or minimal infiltrat es. Cardiomegaly with mild pulmonary vascular congestion. Other findings as noted above TECHNICAL DOCUMENTATION: JOB ID: [id number]
[2016-12-18] MEDS ORDERED: FUROSEMIDE INJ/PF 100 MG/10 ML SDV IV ONE (19:27)
[2016-12-18 21:05] LABS: ABSOLUTE BASOPHILS # (AUTO) 0.1 10^3/uL (0.0-0.2); ABSOLUTE EOSINOPHILS # (AUTO) 0.2 10^3/uL (0.0-0.6); ABSOLUTE LYMPHOCYTES (AUTO) 1.4 10^3/uL (0.5-4.7); ABSOLUTE MONOCYTES (AUTO) 0.8 10^3/uL (0.1-1.4); ABSOLUTE NEUT (AUTO) 10.8 10^3/uL (1.7-8.2); BASOPHILS % (AUTO) 0.9 % (0-2); EOSINOPHILS % (AUTO) 1.3 % (0-6); HEMATOCRIT 33.1 % (37.9-51.0); HEMOGLOBIN 10.6 g/dL (13.5-17.0); HGB HCT DIFFERENCE -1.3; LYMPHOCYTES % (AUTO) 10.6 % (13-45); MEAN CORPUSCULAR HEMOGLOBIN 26.1 pg (27.0-33.4); MEAN CORPUSCULAR HGB CONC 32.1 g/dL (32.0-36.0); MEAN CORPUSCULAR VOLUME 81 fl (80-97); MONOCYTES % (AUTO) 6.1 % (3-13); RED BLOOD COUNT 4.08 10^6/uL (4.35-5.55); RED CELL DISTRIBUTION WIDTH 18.4 % (11.5-14.0); SEGMENTED NEUTROPHILS % (AUTO) 81.1 % (42-78); WHITE BLOOD COUNT 13.3 10^3/uL (4.0-10.5)
[2016-12-18 21:32] LABS: ANION GAP 14 (5-19); BLOOD UREA NITROGEN 39 mg/dL (7-20); CALCIUM 8.8 mg/dL (8.4-10.2); CARBON DIOXIDE 24 mmol/L (22-30); CHLORIDE 103 mmol/L (98-107); CREATININE RESULT 2.24 mg/dL (0.52-1.25); GLUCOSE 240 mg/dL (75-110); POTASSIUM 5.8 mmol/L (3.6-5.0); SODIUM 141.3 mmol/L (137-145)
[2016-12-18 21:46] LABS: TROPONIN I 0.041 ng/mL
[2016-12-18 23:26] LABS: ADD ON TESTING BLD IN LAB ACKNOWLEDGE
[2016-12-18 23:43] LABS: ALANINE AMINOTRANSFERASE 26 U/L (21-72); ALBUMIN 3.8 g/dL (3.5-5.0); ALKALINE PHOSPHATASE 474 U/L (38-126); ASPARTATE AMINO TRANSFERASE 20 U/L (17-59); BILIRUBIN,DIRECT 0.3 mg/dL (0.0-0.4); BILIRUBIN,TOTAL 0.4 mg/dL (0.2-1.3); DIGOXIN 1.02 ng/mL (0.8-2.0); MAGNESIUM 1.8 mg/dL (1.6-2.3); TOTAL PROTEIN 6.6 g/dL (6.3-8.2)
[2016-12-19 00:09] LABS: ANION GAP 16 (5-19); BLOOD UREA NITROGEN 43 mg/dL (7-20); CALCIUM 8.9 mg/dL (8.4-10.2); CARBON DIOXIDE 22 mmol/L (22-30); CHLORIDE 104 mmol/L (98-107); CREATININE RESULT 2.11 mg/dL (0.52-1.25); GLUCOSE 132 mg/dL (75-110); POTASSIUM 5.1 mmol/L (3.6-5.0); PROTHROMBIN TIME 30.2 SEC (11.4-15.4)
[2016-12-19 00:10] LABS: PARTIAL THROMBOPLASTIN TIME 58.5 SEC (23.5-35.8)
[2016-12-19] MEDS ORDERED: DEXTROSE 40% GEL 15 GM TUBE PO PRN ×2 (00:44)
[2016-12-19] MEDS ORDERED: DEXTROSE 50%-WATER 25 GM/50 ML DISP.SYRIN IV PRN ×2 (00:44)
[2016-12-19] MEDS ORDERED: GLUCAGON,HUMAN RECOMB 1 MG INJ IM PRN (00:44)
[2016-12-19] MEDS ORDERED: IPRATROPIUM/ALBUTEROL 0.5-2.5 MG/3 ML AMPUL NEB PRN (00:50)
[2016-12-19] MEDS ORDERED: PROMETHAZINE HCL 25 MG TABLET PO PRN (00:55)
[2016-12-19] MEDS ORDERED: ACETAMINOPHEN 325 MG TABLET PO PRN ×2 (00:56→03:58)
--- NOTE | 2016-12-19 01:19 | PDOC H&P ---
History of Present Illness Admission Date/PCP: 12/18/16 23:[address] Srinivasan Watters Cardiology Dr. Matthew Patient complains of: Shortness of breath History of Present Illness: DIEGO WATTERS is a 76 year old male with underlying known systolic congestive heart failure, but by his account, no chronic underlying pulmonary disease, including asthma, COPD, or obstructive sleep apnea, who presents to the emergency room for evaluation of above complaint. Patient has been discussed with emergency room physician who evaluated the patient. He describes a one-week history of slowly progressive difficulty breathing, in particular with much of any exertion. Was found by EMS to be in severe respiratory distress, with 84% saturation on room air. Was placed on CPAP and given a breathing treatment en route to the emergency room. Was placed on BiPAP in our emergency room and has remained on same until I saw him. Breathing much more comfortably now, and he has tolerated being placed on nasal cannula since I have seen him. Denies chest or abdominal pain. No nausea vomiting, fever or chills. No diarrhea or dysuria. Occasional cough, on occasion slightly productive of phlegm, which he swallows. Does not think he has gained weight recently. States up until 2 weeks ago, he was weighing himself on a daily basis. Has not weighed himself since then. Occasional ankle swelling, right greater than left. No history of pulmonary embolus or DVT. Chronically anticoagulated on Coumadin , for atrial fibrillation. Status post AICD implant. Has a history of noncompliance with medications, and states he has not seen his lace burn out tender in at least a year. States he has been taking his medications as prescribed, but freely admits that he eats a lot of canned food along with a lot of "sugary foods." States he has never smoked. Denies alcohol or illicit drug use. Hospitalized on our service the through 03 October of this year, with final diagnoses including acute on chronic systolic congestive heart failure exacerbation, with a similar admission the month prior to that for same. History and physical and discharge summary have been reviewed.. Dictation via voice recognition software. Laboratory results are listed in [facility] and are reviewed. X-ray summary results are listed below, with full report(s) reviewed. . EKG reviewed and compared to prior tracing from 01 October of this year. Social history/personal habits: . Lives alone. 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 Allergies/adverse reactions are listed in [facility] and are reviewed. Home medications initially autopopulated into [employer] may not accurately reflect patient's true medications, dosages, and/or frequencies. utility tech to reconcile medications. Unfortunately, patient not certain of all medications/dosages/frequencies. REVIEW OF SYSTEMS: Constitutional: No fever or chills. Eyes: States he needs reading glasses. ENT: No swallowing problems or complaints. Denies hearing loss. Pulmonary: See history and present illness. Cardiovascular: See history and present illness. Gastrointestinal: No current complaints, including nausea or vomiting. Skin: No current complaints, including rashes. Hematologic: Easy bruising. Neurologic: No current complaints, including numbness or tingling. Musculoskeletal: No current or chronic joint complaints, such as arthritis. Psychiatric: Occasional mild anxiety and depression. Denies suicidal or homicidal ideation. Endocrine: No current complaints, including polyuria. Genitourinary: No current complaints, including dysuria. PHYSICAL EXAMINATION: 5 feet 8 inches tall. 94.4 kg. BMI 31.6 kg/m. Blood pressure 125/53. Pulse 61 and regular. 97% saturation on 35% FiO2, BiPAP 12/6. Respirations are 15 and unlabored. Temperature 97.9. Slightly obese otherwise well-nourished chronically ill-appearing male who appears a number of years older than his stated age. Pleasant awake alert and cooperative. Rather talkative gentleman. Mildly anxious, without agitation. Skin is warm and dry. No grossly obvious evidence of rash in areas of skin examined. No subcutaneous nodules palpated. Skin has the overall appearance of someone whose spent a good bit of time in the sun. ENT: Hearing grossly normal to normal conversation. Tongue midline on protrusion pink and slightly moist. Eyes: No scleral icterus. Pupils equal and reactive to light at 4 mm. [place] conjunctivae. Neck is supple and nontender to gentle active range of motion and palpation. Midline trachea. No palpable thyroid nodule mass enlargement or tenderness. Lymphatic: No palpable cervical or clavicular nodes. Neck and lymphatic exams limited by patient body habitus. Psychiatric: Reasonable insight into acute and chronic medical issues. Oriented to time location and why here. Lungs: Auscultation reveals equal breath sounds bilaterally. No use of accessory respiratory muscles. Mild brief early expiratory wheezing in the right upper lobe; breath sounds are clear otherwise. Cardiovascular: Heart regular rate and rhythm, without gallop murmur or rub. No carotid or abdominal aortic bruits. Scant bilateral symmetric essentially nonpitting ankle and pedal edema. Faintly palpable dorsalis pedis pulses. Abdomen:soft somewhat obese nontender with positive bowel sounds. Unable to adequately evaluate abdomen for masses or organomegaly due to body habitus. Small easily reducible nontender midline supraumbilical hernia. Extremities: Feet are warm and dry. No calf tenderness to compression. No grossly obvious visual evidence of calf swelling. Gentle manipulation of lower extremities fails to reveal any obvious evidence of injury or instability to knees hips or ankles. Right lower extremity appears to be slightly larger than left, which is a chronic finding, per patient. Neurologic: Moves upper extremities grossly normally. Patellar reflexes absent. Absent Babinski. Light touch is intact at feet. Dorsiflexion and plantarflexion of feet 5 / 5 and symmetric. Past Medical History Cardiac Medical History: Reports: Atrial Fibrillation, Congestive Heart Failure - Systolic, Myocardial Infarction, Hyperlipidema, Hypertension Denies: DVT, Pulmonary Embolism Pulmonary Medical History: Denies: Asthma, Chronic Obstructive Pulmonary Disease (COPD), Sleep Apnea EENT Medical History: Reports: Eyes - Needs glasses Denies: Ears, Throat Neurological Medical History: Denies: Hemorrhagic CVA, Ischemic CVA, Seizures Endocrine Medical History: Reports: Diabetes Mellitus Type 2 Denies: Diabetes Mellitus Type 1, Hyperthyroidism, Hypothyroidism Renal/ Medical History: Reports: Chronic Kidney Disease - Stage III Malignancy Medical History: Reports: Skin Cancer GI Medical History: Reports: Gastroesophageal Reflux Disease - Mild Denies: Cirrhosis, Hepatitis, Peptic Ulcer Disease Musculoskeltal Medical History: Reports: Other - Occasional right lower extremity pain, chronic, but without specific diagnosis of arthritis. Skin Medical History: Reports: Other - See malignancy history. Psychiatric Medical History: Reports: Depression - Mild, General Anxiety Disorder - Mild Denies: Alcohol Dependency, Substance Abuse, Tobacco Dependency Hematology: Reports: Anemia - Chronic, Other - Easy bruising Infectious Medical History: Denies: Hepatitis B, Hepatitis C Past Surgical History Past Surgical History: Reports: Internal Defibrillator, Pacemaker Social History Information Source: Patient, Emergency Med Personnel, [facility] Records Lives with: Alone Smoking Status: Never Smoker Frequency of Alcohol Use: None Hx Recreational Drug Use: No Drugs: None Hx Prescription Drug Abuse: No - Advance Directive Resuscitation Status: Full Code Surrogate healthcare decision maker:: Children Family History Family History: Reviewed & Not Pertinent Parental Family History Reviewed: Yes - Uncertain cause of parents deaths. Children Family History Reviewed: Yes - Both with "too much iron in their blood. " Sibling(s) Family History Reviewed.: Yes - Uncertain health status Medication/Allergy Home Medications: Amiodarone HCl [Cordarone 200 mg Tablet] 200 mg PO DAILY 10/01/16 Aspirin [Ecotrin 325 mg EC Tablet] 325 mg PO DAILY 10/01/16 Carvedilol [Coreg 12.5 mg Tablet] 12.5 mg PO Q12 10/01/16 Digoxin [Lanoxin 0.125 mg Tablet] 0.125 mg PO DAILY 10/01/16 Furosemide [Lasix] 40 mg PO Q12 10/01/16 Glimepiride [Amaryl 4 mg Tablet] 4 mg PO Q12 10/01/16 Potassium Chloride [K-Tab ER] 20 meq PO DAILY 10/01/16 Simvastatin [Zocor 20 mg Tablet] 20 mg PO QHS 10/01/16 Spironolactone [Aldactone 25 mg Tablet] 25 mg PO WSUPPER 10/01/16 Warfarin Sodium [Coumadin 5 mg Tablet] 5 mg PO QHS 10/01/16 Metformin HCl [Glucophage] 1 tab PO Q12 12/19/16 Ranitidine HCl [Zantac 150 mg Tablet] 150 mg PO BIDP PRN 12/19/16 Allergies/Adverse Reactions: lisinopril Adverse Reaction (Severe, Verified 12/19/16 00:50) Syncope Physical Exam Vital Signs: Temp Pulse Resp BP Pulse Ox 97.9 F 16 125/53 L 97 12/19/16 00:01 12/19/16 00:01 12/19/16 00:01 12/19/16 00:01 Results Laboratory Results: 12/18/16 23:43 12/18/16 23:43 Sodium 142.0 Potassium 5.1 H Chloride 104 Carbon Dioxide 22 Anion Gap 16 BUN 43 H Creatinine 2.11 H Est GFR ( Amer) 37 L Est GFR (Non-Af Amer) 31 L Glucose 132 H Calcium 8.9 12/18/16 23:43 Troponin I 0.153 Impressions: Chest X-Ray 12/18/16 18:49 IMPRESSION: Minimal basilar densities which could represent atelectatic changes or minimal infiltrates. Cardiomegaly with mild pulmonary vascular congestion. Other findings as noted above Assessment & Plan - Diagnosis (1) Acute on chronic systolic (congestive) heart failure Is this a current diagnosis for this admission?: YesPlan: Suspect due at least in part to dietary indiscretion, with patient eating a lot of canned and "sugary" foods. Dietary consult. Patient will be admitted under CHF protocol. Serial troponins. Repeat EKG. Lipid panel. Cardiology consult. Echocardiogram. Patient is a full code. I have strongly encouraged patient not to get out of bed without notifying staff , to avoid a fall with injury. Knee high SCDs for DVT prophylaxis; with patient anticoagulated on Coumadin, no need for Lovenox or heparin. Impression and plans were discussed with patient, who concurs Time spent in evaluation and management of patient: 72 minutes (2) Dietary indiscretion Is this a current diagnosis for this admission?: Yes (3) Elevated troponin Is this a current diagnosis for this admission?: YesPlan: No outward evidence of acute coronary syndrome. Suspect due to CHF exacerbation. Serial troponins. (4) Hyperkalemia Is this a current diagnosis for this admission?: YesPlan: Repeat Chem-7. (5) Non-compliance Is this a current diagnosis for this admission?: Yes (6) Anemia Qualifiers: Anemia type: unspecified type Qualified Code(s): D64.9 - Anemia, unspecified Is this a current diagnosis for this admission?: YesPlan: Suspect primarily due to anemia of chronic disease. Follow-up CBC with differential. No need for transfusion at present time. (7) Anticoagulated Is this a current diagnosis for this admission?: YesPlan: Resume home medications as appropriate once these have been determined and reviewed. (8) Atrial fibrillation Qualifiers: Atrial fibrillation type: chronic Qualified Code(s): I48.2 - Chronic atrial fibrillation Is this a current diagnosis for this admission?: YesPlan: No evidence of rapid ventricular response. Resume home medications as appropriate once these have been determined and reviewed. (9) CKD (chronic kidney disease), stage III Is this a current diagnosis for this admission?: YesPlan: Repeat chemistry. (10) Diabetes mellitus type 2 in obese Is this a current diagnosis for this admission?: YesPlan: Clear liquid prerenal diet, till certain that patient will no longer need CPAP. Accu-Cheks with appropriate sliding scale coverage. Resume home medications as appropriate once these have been determined and reviewed. (11) HLD (hyperlipidemia) Qualifiers: Hyperlipidemia type: unspecified Qualified Code(s): E78.5 - Hyperlipidemia, unspecified Is this a current diagnosis for this admission?: YesPlan: Lipid panel. Resume home medications as appropriate once these have been determined and reviewed. (12) Acute respiratory failure with hypoxemia Is this a current diagnosis for this admission?: YesPlan: Likely due to CHF exacerbation; resolved nicely with treatment so far. - Time Time Spent: Greater than 70 Minutes Anticipated discharge: Home Within: within 72 hours - Inpatient Certification Based on my medical assessment, after consideration of the patient's comorbidities, presenting symptoms, or acuity I expect that the services needed warrant INPATIENT care.: Yes I certify that my determination is in accordance with my understanding of Medicare's requirements for reasonable and necessary INPATIENT services [42 CFR 412.3e].: Yes Medical Necessity: Need Close Monitoring Due to Risk of Patient Decompensation, Need For Continuous Telemetry Monitoring, Risk of Complication if Not Cared For in Hospital Post Hospital Care: D/C or Transfer Summary
[2016-12-19 06:51] LABS: ABSOLUTE BASOPHILS # (AUTO) 0.1 10^3/uL (0.0-0.2); ABSOLUTE EOSINOPHILS # (AUTO) 0.1 10^3/uL (0.0-0.6); ABSOLUTE LYMPHOCYTES (AUTO) 2.1 10^3/uL (0.5-4.7); ABSOLUTE MONOCYTES (AUTO) 0.9 10^3/uL (0.1-1.4); ABSOLUTE NEUT (AUTO) 7.4 10^3/uL (1.7-8.2); BASOPHILS % (AUTO) 0.9 % (0-2); EOSINOPHILS % (AUTO) 1.1 % (0-6); HEMATOCRIT 30.2 % (37.9-51.0); HEMOGLOBIN 10.2 g/dL (13.5-17.0); HGB HCT DIFFERENCE 0.4; MEAN CORPUSCULAR HEMOGLOBIN 26.6 pg (27.0-33.4); MEAN CORPUSCULAR HGB CONC 33.7 g/dL (32.0-36.0); MEAN CORPUSCULAR VOLUME 79 fl (80-97); MONOCYTES % (AUTO) 8.8 % (3-13); RED BLOOD COUNT 3.82 10^6/uL (4.35-5.55); RED CELL DISTRIBUTION WIDTH 18.6 % (11.5-14.0); SEGMENTED NEUTROPHILS % (AUTO) 69.2 % (42-78); WHITE BLOOD COUNT 10.6 10^3/uL (4.0-10.5)
[2016-12-19 07:13] LABS: ANION GAP 11 (5-19); BLOOD UREA NITROGEN 44 mg/dL (7-20); CALCIUM 8.8 mg/dL (8.4-10.2); CARBON DIOXIDE 26 mmol/L (22-30); CHLORIDE 105 mmol/L (98-107); CHOLESTEROL 156.88 mg/dL (0-200); CREATININE RESULT 2.19 mg/dL (0.52-1.25); Direct HDL 29 mg/dL (>40); GLUCOSE 90 mg/dL (75-110); POTASSIUM 4.8 mmol/L (3.6-5.0); SODIUM 141.7 mmol/L (137-145); TRIGLYCERIDES 247 mg/dL (<150)
[2016-12-19 07:23] LABS: DIRECT LDL 86 mg/dL (<100)
[2016-12-19 07:26] LABS: VLDL CHOLESTEROL 49.4 mg/dL (10-31)
[2016-12-19] MEDS ORDERED: ASPIRIN 81 MG TABLET, ENT COATED PO SCH (10:00)
[2016-12-19] MEDS ORDERED: (PENDING PHARMACY ID) (Potassium Chloride [K-Tab Er] 20 MEQ) PO SCH (10:00)
[2016-12-19] MEDS: POTASSIUM CHLORIDE 10 MEQ TABLET.SA PO SCH (10:49)
[2016-12-19] MEDS: GLIMEPIRIDE 4 MG TABLET PO SCH ×2 (10:49→22:24)
[2016-12-19] MEDS: DOCUSATE SODIUM 100 MG CAPSULE PO SCH (10:50)
[2016-12-19] MEDS: AMIODARONE HCL 200 MG TABLET PO SCH (10:51)
[2016-12-19] MEDS: DIGOXIN 0.125 MG TABLET PO SCH (10:51)
[2016-12-19] MEDS: ASPIRIN 325 MG TABLET, ENT COATED PO SCH (10:51)
[2016-12-19] MEDS: FUROSEMIDE INJ/PF 40 MG/4 ML SDV IV SCH ×2 (10:53→22:23)
[2016-12-19] MEDS: CARVEDILOL 12.5 MG TABLET PO SCH ×2 (10:53→22:23)
[2016-12-19 12:14] LABS: APPEARANCE,URINE CLEAR; BILIRUBIN,URINE NEGATIVE (NEGATIVE); GLUCOSE, URINE NEGATIVE (NEGATIVE); KETONES,URINE NEGATIVE (NEGATIVE); LEUKOCYTE ESTERASE,URINE NEGATIVE (NEGATIVE); NITRITE,URINE NEGATIVE (NEGATIVE); PROTEIN,URINE NEGATIVE (NEGATIVE); URINE SPECIFIC GRAVITY 1.011; UROBILINOGEN,URINE NEGATIVE mg/dL (<2.0)
--- NOTE | 2016-12-19 12:19 | PDOC CONSULTATION ---
Consultation Consult Date: 12/19/16 Attending physician:: DAYAN RAIN Consult reason:: Congestive heart failure History of Present Illness Admission Date/PCP: 12/19/16 00:47 Patient complains of: Shortness of breath History of Present Illness: DIEGO CHING is a 76 year old male with underlying known systolic congestive heart failure, but by his account, no chronic underlying pulmonary disease, including asthma, COPD, or obstructive sleep apnea, who presents to the emergency room for evaluation of above complaint. No recent echocardiogram report available. He describes a one-week history of slowly progressive difficulty breathing, in particular without much of any exertion. Was found by EMS to be in severe respiratory distress, with 84% saturation on room air. Was placed on CPAP and given a breathing treatment in route to the emergency room. Was placed on BiPAP in our emergency room. Today breathing much more comfortably now, currently on nasal cannula. Denies chest or abdominal pain. No nausea vomiting, fever or chills. No diarrhea or dysuria. Occasional cough, on occasion slightly productive of phlegm, which she swallows. Does not think he has gained weight recently. States up until 2 weeks ago, he was weighing himself on a daily basis. Has not weighed himself since then. Occasional ankle swelling, right greater than left. No history of pulmonary embolus or DVT. Chronically anticoagulated on Coumadin , for atrial fibrillation. Status post AICD implant. Has a history of noncompliance with medications, and states he has not seen his cost consultant in at least a year. States he has been taking his medications as prescribed, but freely admits that he eats a lot of canned food along with a lot of "sugary foods." States he has never smoked. Denies alcohol or illicit drug use. Patient had a defibrillator placed a few years ago. Patient claims that this was placed in by Dr. Tegan Matthew. Patient's primary care sales [place] is [place] and he has a difficult time traveling there. This history was reviewed, supplemented and confirmed. Past Medical History Cardiac Medical History: Reports: Atrial Fibrillation, Congestive Heart Failure - Systolic, Myocardial Infarction, Hyperlipidema, Hypertension Denies: DVT, Pulmonary Embolism Pulmonary Medical History: Denies: Asthma, Chronic Obstructive Pulmonary Disease (COPD), Sleep Apnea EENT Medical History: Reports: Eyes - Needs glasses, Other - Easy bruising Denies: Ears, Throat Neurological Medical History: Denies: Hemorrhagic CVA, Ischemic CVA, Seizures Endocrine Medical History: Reports: Diabetes Mellitus Type 2 Denies: Diabetes Mellitus Type 1, Hyperthyroidism, Hypothyroidism Renal/ Medical History: Reports: Chronic Kidney Disease - Stage III Malignancy Medical History: Reports: Skin Cancer GI Medical History: Reports: Gastroesophageal Reflux Disease - Mild Denies: Cirrhosis, Hepatitis, Peptic Ulcer Disease Musculoskeltal Medical History: Reports: Other - Occasional right lower extremity pain, chronic, but without specific diagnosis of arthritis. Skin Medical History: Reports: Other - See malignancy history. Psychiatric Medical History: Reports: Depression - Mild, General Anxiety Disorder - Mild Denies: Alcohol Dependency, Substance Abuse, Tobacco Dependency Hematology: Reports: Anemia - Chronic, Other - Easy bruising Infectious Medical History: Denies: Hepatitis B, Hepatitis C Past Surgical History Past Surgical History: Reports: Internal Defibrillator, Pacemaker Social History Information Source: Patient Lives with: Alone Smoking Status: Never Smoker Frequency of Alcohol Use: None Hx Recreational Drug Use: No Drugs: None Hx Prescription Drug Abuse: No - Advance Directive Resuscitation Status: Full Code Surrogate healthcare decision maker:: Patient sons are the surrogate decision maker Family History Family History: CAD Parental Family History Reviewed: Yes Children Family History Reviewed: Yes Sibling(s) Family History Reviewed.: Yes Medication/Allergy Home Medications: Amiodarone HCl [Cordarone 200 mg Tablet] 200 mg PO DAILY 10/01/16 Aspirin [Ecotrin 325 mg EC Tablet] 325 mg PO DAILY 10/01/16 Carvedilol [Coreg 12.5 mg Tablet] 12.5 mg PO Q12 10/01/16 Digoxin [Lanoxin 0.125 mg Tablet] 0.125 mg PO DAILY 10/01/16 Furosemide [Lasix] 40 mg PO Q12 10/01/16 Glimepiride [Amaryl 4 mg Tablet] 4 mg PO Q12 10/01/16 Potassium Chloride [K-Tab ER] 20 meq PO DAILY 10/01/16 Simvastatin [Zocor 20 mg Tablet] 20 mg PO QHS 10/01/16 Spironolactone [Aldactone 25 mg Tablet] 25 mg PO WSUPPER 10/01/16 Warfarin Sodium [Coumadin 5 mg Tablet] 5 mg PO QHS 10/01/16 Metformin HCl [Glucophage] 1 tab PO Q12 12/19/16 Allergies/Adverse Reactions: lisinopril Adverse Reaction (Severe, Verified 12/19/16 00:50) Syncope Review of Systems Review of Systems: Please see history of present illness and past medical history as wall. Constitutional: No fever or chills reported. Head : No recent chronic headaches, recent head injury. Eyes: No recent eye pain, diplopia, redness, discharge, acute visual changes. Ears: No recent chronic ear pain, acute hearing loss, ear discharge. Oral cavity: No recent ulcerations, bleeding, oral cavity discomfort. Neck: No recent acute neck pain reported. Hematologic: Easy bruising easy bruising reported but hematologic malignancy reported. Lymphatic: No recent lymphatic malignancy, chronic lymphadenopathy reported yet Cardiovascular system review: See history of present illness. Respiratory system review: No recent chronic cough, hemoptysis, blood clots in the lungs reported. Mild Shortness of breath on exertion Gastrointestinal system review: Negative for any recent acute or chronic abdominal pain, hematemesis, melena, recent change in bowel habits. Genitourinary system review: No recent acute or chronic hematuria, flank pain, UTI etc. reported. Skin system review: Negative for any recent abnormal bruising, no rash, no pruritus reported. Neurologic: No prior history of strokes, mini strokes, seizure disorder. Psychologic: No history of major psychosis or major depression reported. Musculoskeletal: Minor aches and pains reported. No acute joint swelling reported. Endocrine: No recent polyuria, polydipsia, recent heat or cold intolerance. Physical Exam Vital Signs: Temp Pulse Resp BP Pulse Ox 98.4 F 65 19 93/41 L 98 12/19/16 07:58 12/19/16 07:58 12/19/16 07:58 12/19/16 07:58 12/19/16 07:58 Intake & Output 12/18/16 12/19/16 12/20/16 06:59 06:59 06:59 Intake Total 3 Balance 3 Weight 82 kg Exam: GENERAL: well-nourished and in no acute distress. Alert and oriented x3 HEAD: Atraumatic, normocephalic. EYES: Pupils equal round and reactive to light, extraocular movements intact, sclera anicteric, conjunctiva are normal. ENT: TMs normal, nares patent, oropharynx clear without exudates. Moist mucous membranes. No oral ulcerations or bleeding gums noted NECK: supple without lymphadenopathy. Trachea is central. No cervical or axillary lymphadenopathy noted. Carotids are 2+, JVD 8 cm LUNGS: Respiration seems nonlabored, no significant accessory muscle action noted. Bibasilar fine crackles noted. No dullness noted. CHEST: Palpation of the chest wall shows no significant chest wall tenderness. No other significant abnormalities noted. HEART: [place] SUMAC TANNER, No PSH, 1/6 BLAS aortic area, 1/6 cobian systolic murmur mitral area, no rubs, no gallops. ABDOMEN: Soft, no significant tenderness appreciated, normoactive bowel sounds. No guarding, no rebound. No rigidity noted . No masses appreciated. EXTREMITIES: Pedal pulses are 1-2+, no calf tenderness noted. No clubbing or cyanosis. 1+ pedal edema noted NEUROLOGICAL: Focused neurological exam showed no significant neurologic deficit. Normal speech, no focal weakness appreciated. PSYCH: Normal mood, normal affect. Judgment and insight within normal limits. SKIN: No significant ecchymosis, rash, ulcerations or signs of pruritus noted. MUSCULOSKELETAL EXAM: No significant joint swelling noted. Results Laboratory Results: 12/19/16 06:07 12/19/16 06:07 12/19/16 12/19/16 06:07 06:07 WBC 10.6 H RBC 3.82 L Hgb 10.2 L Hct 30.2 L MCV 79 L MCH 26.6 L MCHC 33.7 RDW 18.6 H Plt Count 242 Seg Neutrophils % 69.2 Lymphocytes % 20.0 Monocytes % 8.8 Eosinophils % 1.1 Basophils % 0.9 Absolute Neutrophils 7.4 Absolute Lymphocytes 2.1 Absolute Monocytes 0.9 Absolute Eosinophils 0.1 Absolute Basophils 0.1 Sodium 141.7 Potassium 4.8 Chloride 105 Carbon Dioxide 26 Anion Gap 11 BUN 44 H Creatinine 2.19 H Est GFR ( Amer) 36 L Est GFR (Non-Af Amer) 29 L Glucose 90 Calcium 8.8 Triglycerides 247 H Cholesterol 156.88 LDL Cholesterol Direct 86 VLDL Cholesterol 49.4 H HDL Cholesterol 29 L 12/19/16 06:07 Troponin I 0.215 EKG Comments: Ventricular paced rhythm, most likely biventricular paced rhythm. Underlying atrial fibrillation. Impressions: Chest X-Ray 12/18/16 18:49 IMPRESSION: Minimal basilar densities which could represent atelectatic changes or minimal infiltrates. Cardiomegaly with mild pulmonary vascular congestion. Other findings as noted above Status: Image reviewed by me - Chest x-ray reviewed shows biventricular pacemaker defibrillator in place. Fluid in the minor fissure and mild CHF noted Assessment & Plan - Diagnosis (1) Acute on chronic systolic (congestive) heart failure Is this a current diagnosis for this admission?: Yes (2) Elevated troponin Is this a current diagnosis for this admission?: Yes (3) Acute respiratory failure with hypoxemia Is this a current diagnosis for this admission?: Yes (4) Atrial fibrillation Qualifiers: Atrial fibrillation type: chronic Qualified Code(s): I48.2 - Chronic atrial fibrillation Is this a current diagnosis for this admission?: Yes (5) Diabetes mellitus type 2 in obese Is this a current diagnosis for this admission?: Yes (6) HLD (hyperlipidemia) Qualifiers: Hyperlipidemia type: unspecified Qualified Code(s): E78.5 - Hyperlipidemia, unspecified Is this a current diagnosis for this admission?: Yes (7) CKD (chronic kidney disease), stage III Is this a current diagnosis for this admission?: Yes - Notes Notes: CHF: Possibly based on systolic dysfunction but will repeat an echo since patient is having recurrent CHF. Clinically this seems decompensated. Continue baseline diuretic therapy. Patient should be educated in CHF pathway. This should include salt and fluid restriction, daily weighing, adjustment of diuretic therapy based on weight gain et cetera. Patient to be educated that if there is gain of more than 2 pounds in a day or more than 5 pounds in a week , this indicates fluid retention and patient may need to adjust the diuretic therapy. Symptoms associated with CHF exacerbation to be discussed with the patient. This could include rapid weight gain, abdominal bloating, increased shortness of breath, fatigue, tiredness, cardiac arrhythmias et cetera. Troponin I elevation: Could be related to CHF, hypoxemia. Patient will benefit from a nuclear stress test. This will be scheduled once CHF is controlled. Acute respiratory failure: Most likely related to CHF on top of COPD. Currently improved. Atrial fibrillation: Patient has chronic atrial fibrillation. Based on [id number] score chronic anticoagulation is indicated this was explained to the patient. Patient is agreeable. Discussed a small increased risk of bleeding but on the balance benefits far exceeds the risk. Patient felt to be a satisfactory candidate for chronic anticoagulation. Diabetes: Recommend good control of blood sugar. However should avoid any hypoglycemia. Patient being expertly managed by primary care Lulú Chronic kidney disease: Patient seems to have chronic kidney disease stage 3-4. Creatinine been stable. Avoid any nephrotoxic agents, IV contrast agent dye etc. consider nephrology evaluation. Presence of chronic kidney disease is a prognostic factor. Hyperlipidemia: LDL goal is less than 70. Recommend statin therapy at least intermediate or high dose, of high potency status. Periodic lipid panel and liver panel is indicated. Patient to report any significant muscle discomfort or other side effects. - Time Time Spent: 50 to 70 Minutes - CODE STATUS was discussed, patient remains full code. Surrogate decision-maker unchanged. Multiple medical problems were addressed. More than 50% of the time spent coordinating care, discussing management plans with involved caregivers. Management plans discussed with involved personnels. Medical decision making was of moderate to high complexity , patient's has multiple comorbidities. Medications reviewed and adjusted accordingly: Yes
--- NOTE | 2016-12-19 14:06 | XCELERA REPORT ---
[address] [address] Transthoracic Echocardiogram Report Name: DIEGO CHING Age: 76 yrs Gender: Male : 1940 Patient Status: Inpatient Patient Location: [id number]\S\335\S\A Study Date: 12/19/2016 10:26 AM Height: 68 in Weight: 208 lb BSA: 2.1 m2 Procedure: A complete two-dimensional transthoracic echocardiogram was performed (2D, M-mode, spectral and color flow Doppler). The study was technically difficult with many images being suboptimal in quality. Reason For Study: SYST CHF EXAC Ordering Physician: DAYAN RAIN Performed By: Lima Suazo Interpretation Summary The Ejection Fraction estimate is 25-30% Left ventricular systolic function is severely reduced. Doppler measurements suggest pseudonormalized left ventricular relaxation, which is associated with grade II/IV or mild to moderate diastolic dysfunction There is apical wall akinesis There is mid to distal anterior wall akinesis There is distal lateral wall akinesis There is distal inferior wall akinesis The right ventricular systolic function is normal. The right atrium is mildly dilated. The left atrium is mildly dilated. There is a mild to moderate amount of mitral regurgitation There is no mitral valve stenosis. There is a trace to mild amount of aortic regurgitation There is mild aortic stenosis There is a peak gradient of 15 mm of Hg. There is a mild amount of tricuspid regurgitation Right ventricular systolic pressure is estimated to be elevated at 30- 40mmHg. There is mild pulmonary hypertension by echo The aortic root is not well visualized. The inferior vena cava was not well visualized There is no pericardial effusion. MMode/2D Measurements \T\ Calculations RVDd: 2.6 cm LVIDd: 6.2 cm FS: 12.6 % Ao root diam: IVSd: 0.96 cm LVIDs: 5.5 cm EDV(Teich): 3.4 cm LVPWd: 0.93 cm 197.2 ml Ao root area: ESV(Teich): 144.7 ml 8.9 cm2 EF(Teich): 26.6 % EDV(MOD-sp4): SV(MOD-sp4): 304.1 ml 113.1 ml ESV(MOD-sp4): 191.0 ml EF(MOD-sp4): 37.2 % Doppler Measurements \T\ Calculations MV E max eladio: MV dec slope: Ao V2 max: AI max eladio: 83.1 cm/sec 183.4 cm/sec 276.9 cm/sec MV A max eladio: 268.5 cm/sec2 Ao max PG: AI max P.8 cm/sec MV dec time: 13.5 mmHg 30.7 mmHg MV E/A: 2.4 0.31 sec AI dec slope: 79.1 cm/sec2 AI P1/2t: 1026 msec LV V1 max PG: MR max eladio: PA V2 max: PI end-d eladio: 6.5 mmHg 561.5 cm/sec 106.3 cm/sec 83.3 cm/sec LV V1 max: MR max PG: PA max P.1 cm/sec 126.1 mmHg 4.5 mmHg TR max eladio: 258.8 cm/sec TR max P.9 mmHg Left Ventricle The left ventricle is moderately dilated. There is borderline concentric left ventricular hypertrophy. Left ventricular systolic function is severely reduced. The Ejection Fraction estimate is 25-30%. Doppler measurements suggest pseudonormalized left ventricular relaxation, which is associated with grade II/IV or mild to moderate diastolic dysfunction. There is apical wall akinesis. There is mid to distal anterior wall akinesis. There is distal lateral wall akinesis. There is distal inferior wall akinesis. Right Ventricle The right ventricle is normal in size, thickness and function. There is normal right ventricular wall thickness. The right ventricular systolic function is normal. Atria The right atrium is mildly dilated. The left atrium is mildly dilated. Interarterial septum not well visualized and not well dopplered. Cannot comment on ASD/PFO presence. Mitral Valve The mitral valve is grossly normal. There is no mitral valve stenosis. There is a mild to moderate amount of mitral regurgitation. Aortic Valve The aortic valve is mildly calcified. There is mild aortic stenosis. There is a peak gradient of 15 mm of Hg. There is a trace to mild amount of aortic regurgitation. Tricuspid Valve The tricuspid valve is not well visualized secondary to technical limitations. There is no tricuspid stenosis. There is a mild amount of tricuspid regurgitation. Right ventricular systolic pressure is estimated to be elevated at 30-40mmHg. There is mild pulmonary hypertension by echo. Pulmonic Valve The pulmonic valve is not well visualized. Great Vessels The aortic root is not well visualized. The inferior vena cava was not well visualized. Effusions There is no pericardial effusion. : DAYAN RAIN > Roger Anderson
[2016-12-19] MEDS: ACETAMINOPHEN 325 MG TABLET PO PRN (15:53)
[2016-12-19] MEDS: SPIRONOLACTONE 25 MG TABLET PO SCH (17:22)
--- NOTE | 2016-12-19 17:28 | EKG REPORT ---
SEVERITY:- ABNORMAL ECG - ATRIAL FIBRILLATION AND -VENTRICULAR DUAL-PACED RHYTHM : Confirmed by: Mojgan Potts MD 19-Dec-2016 17:27:46
[2016-12-19] MEDS: SIMVASTATIN 10 MG TABLET PO SCH (22:24)
[2016-12-19] MEDS: INSULIN LISPRO 100 UNIT/ML 3 ML VIAL SUBCUT PRN (22:24)
[2016-12-19] MEDS: WARFARIN SODIUM 5 MG TABLET PO SCH (22:24)
[2016-12-19] MEDS ORDERED: LANSOPRAZOLE 30 MG TAB.RAP.DR PO ONE (23:59)
[2016-12-20] MEDS: ACETAMINOPHEN 325 MG TABLET PO PRN ×3 (01:04→18:39)
[2016-12-20 06:15] LABS: PROTHROMBIN TIME 30.6 SEC (11.4-15.4)
--- NOTE | 2016-12-20 09:46 | PDOC PROGRESS REPORT ---
Subjective Progress Note for:: 12/20/16 Subjective:: Patient is breathing better. Patient slept well last night. Denies any chest pain. No PND orthopnea. No increasing edema. Patient is refusing stress test. No chills or fever reported. Physical Exam Vital Signs: Temp Pulse Resp BP Pulse Ox 98.5 F 61 16 101/43 L 98 12/20/16 08:11 12/20/16 09:15 12/20/16 09:15 12/20/16 08:11 12/20/16 09:15 Intake & Output 12/19/16 12/20/16 12/21/16 06:59 06:59 06:59 Intake Total 3 782 Output Total 100 Balance 3 682 Weight 82 kg General appearance: PRESENT: no acute distress, cooperative Head exam: PRESENT: normocephalic Eye exam: PRESENT: EOMI Mouth exam: PRESENT: moist, neck supple Neck exam: ABSENT: JVD Respiratory exam: PRESENT: clear to auscultation [place]. ABSENT: rhonchi, wheezes Cardiovascular exam: PRESENT: RRR. ABSENT: gallop GI/Abdominal exam: PRESENT: normal bowel sounds, soft. ABSENT: distended, tenderness Extremities exam: PRESENT: other - Trace edema Neurological exam: PRESENT: alert, awake, oriented to situation Skin exam: PRESENT: dry, warm. ABSENT: cyanosis Results Laboratory Results: 12/19/16 06:07 12/19/16 06:07 12/19/16 11:59 Urine Color YELLOW Urine Appearance CLEAR Urine pH 5.0 Ur Specific [place] 1.011 Urine Protein NEGATIVE Urine Glucose (UA) NEGATIVE Urine Ketones NEGATIVE Urine Blood NEGATIVE Urine Nitrite NEGATIVE Ur Leukocyte Esterase NEGATIVE Urine WBC (Auto) 1 Urine RBC (Auto) 0 12/19/16 12/19/16 06:07 11:45 Troponin I 0.215 0.141 Impressions: Chest X-Ray 12/18/16 18:49 IMPRESSION: Minimal basilar densities which could represent atelectatic changes or minimal infiltrates. Cardiomegaly with mild pulmonary vascular congestion. Other findings as noted above Assessment & Plan - Diagnosis (1) Acute on chronic systolic (congestive) heart failure Is this a current diagnosis for this admission?: Yes (2) Elevated troponin Is this a current diagnosis for this admission?: Yes (3) Atrial fibrillation Qualifiers: Atrial fibrillation type: chronic Qualified Code(s): I48.2 - Chronic atrial fibrillation Is this a current diagnosis for this admission?: Yes (4) CKD (chronic kidney disease), stage III Is this a current diagnosis for this admission?: Yes (5) Diabetes mellitus type 2 in obese Is this a current diagnosis for this admission?: Yes (6) HLD (hyperlipidemia) Qualifiers: Hyperlipidemia type: unspecified Qualified Code(s): E78.5 - Hyperlipidemia, unspecified Is this a current diagnosis for this admission?: Yes (7) Coronary artery disease Qualifiers: Coronary Disease-Associated Artery/Lesion type: [place] artery [place] vs. transplanted heart: [place] heart Associated angina: without angina Qualified Code(s): I25.10 - Atherosclerotic heart disease of [place] coronary artery without angina pectoris Is this a current diagnosis for this admission?: Yes (8) GERD (gastroesophageal reflux disease) Qualifiers: Esophagitis presence: without esophagitis Qualified Code(s): K21.9 - Gastro-esophageal reflux disease without esophagitis Is this a current diagnosis for this admission?: Yes (9) Anemia, chronic disease Is this a current diagnosis for this admission?: Yes (10) Anxiety and depression Is this a current diagnosis for this admission?: Yes - Time Time Spent with patient: 25-34 minutes - Plan Summary Plan Summary: We are going to continue diuretics for now. Monitor creatinine and electrolytes. Increase activity. Begin physical therapy. Patient refused stress test. Continue supportive care. Appreciate cardiology help and input. Recheck PT/INR in the morning. Continue current warfarin dose.
[2016-12-20] MEDS: POTASSIUM CHLORIDE 10 MEQ TABLET.SA PO SCH (10:24)
[2016-12-20] MEDS: DIGOXIN 0.125 MG TABLET PO SCH (10:25)
[2016-12-20] MEDS: CARVEDILOL 12.5 MG TABLET PO SCH ×2 (10:25→21:55)
[2016-12-20] MEDS: ASPIRIN 325 MG TABLET, ENT COATED PO SCH (10:25)
[2016-12-20] MEDS: AMIODARONE HCL 200 MG TABLET PO SCH (10:25)
[2016-12-20] MEDS: DOCUSATE SODIUM 100 MG CAPSULE PO SCH (10:26)
[2016-12-20] MEDS: GLIMEPIRIDE 4 MG TABLET PO SCH ×2 (10:26→21:55)
--- NOTE | 2016-12-20 11:54 | PDOC PROGRESS REPORT ---
Subjective Progress Note for:: 12/20/16 Subjective:: Patient seems to be doing better with gradual improvement. Patient is wanting to be discharged home. He declined to undergo a stress test although rationale was explained to the patient in detail. Pt is denying any chest arm or neck discomfort. Patient denying any PND, orthopnea. Patient denied any sustained palpitations, dizziness, syncope, near syncope. Patient denying any fever chills. Patient denying any other significant discomfort. Patient is maintaining ventricular paced rhythm.. Review of systems: Rest review of systems negative. Medications: Medications have been reviewed. Physical Exam Vital Signs: Temp Pulse Resp BP Pulse Ox 98.5 F 61 16 101/43 L 98 12/20/16 08:11 12/20/16 09:15 12/20/16 09:15 12/20/16 08:11 12/20/16 09:15 Intake & Output 12/19/16 12/20/16 12/21/16 06:59 06:59 06:59 Intake Total 3 782 Output Total 100 Balance 3 682 Weight 82 kg Exam: GENERAL: well-nourished and in no acute distress. Alert and oriented x3 HEAD: Atraumatic, normocephalic. EYES: Pupils equal round and reactive to light, extraocular movements intact, sclera anicteric, conjunctiva are normal. ENT: TMs normal, nares patent, oropharynx clear without exudates. Moist mucous membranes. No oral ulcerations or bleeding gums noted NECK: supple without lymphadenopathy. Trachea is central. No cervical or axillary lymphadenopathy noted. Carotids are 2+, JVD WNL LUNGS: Respiration seems nonlabored, no significant accessory muscle action noted. Breath sounds clear to auscultation bilaterally and equal noted. No wheezes rales or rhonchi noted. No significant dullness noted on percussion. CHEST: Palpation of the chest wall shows no significant chest wall tenderness. No other significant abnormalities noted. Defibrillator noted on the left side. 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 ABDOMEN: Soft, no significant tenderness appreciated, normoactive bowel sounds. No guarding, no rebound. No rigidity noted . No masses appreciated. EXTREMITIES: Pedal pulses are 1-2+, no calf tenderness noted. No clubbing or cyanosis.trace to 1+ pedal edema noted NEUROLOGICAL: Focused neurological exam showed no significant neurologic deficit. Normal speech, no focal weakness appreciated. PSYCH: Normal mood, normal affect. Judgment and insight within normal limits. SKIN: No significant ecchymosis, rash, ulcerations or signs of pruritus noted. MUSCULOSKELETAL EXAM: No significant joint swelling noted. Results Laboratory Results: 12/19/16 06:07 12/19/16 06:07 12/19/16 11:59 Urine Color YELLOW Urine Appearance CLEAR Urine pH 5.0 Ur Specific Paige 1.011 Urine Protein NEGATIVE Urine Glucose (UA) NEGATIVE Urine Ketones NEGATIVE Urine Blood NEGATIVE Urine Nitrite NEGATIVE Ur Leukocyte Esterase NEGATIVE Urine WBC (Auto) 1 Urine RBC (Auto) 0 12/19/16 12/19/16 06:07 11:45 Troponin I 0.215 0.141 Impressions: Chest X-Ray 12/18/16 18:49 IMPRESSION: Minimal basilar densities which could represent atelectatic changes or minimal infiltrates. Cardiomegaly with mild pulmonary vascular congestion. Other findings as noted above Assessment & Plan - Diagnosis (1) Acute on chronic systolic (congestive) heart failure Is this a current diagnosis for this admission?: Yes (2) Elevated troponin Is this a current diagnosis for this admission?: Yes (3) Acute respiratory failure with hypoxemia Is this a current diagnosis for this admission?: Yes (4) Atrial fibrillation Qualifiers: Atrial fibrillation type: chronic Qualified Code(s): I48.2 - Chronic atrial fibrillation Is this a current diagnosis for this admission?: Yes (5) Diabetes mellitus type 2 in obese Is this a current diagnosis for this admission?: Yes (6) HLD (hyperlipidemia) Qualifiers: Hyperlipidemia type: unspecified Qualified Code(s): E78.5 - Hyperlipidemia, unspecified Is this a current diagnosis for this admission?: Yes (7) CKD (chronic kidney disease), stage III Is this a current diagnosis for this admission?: Yes - Notes Notes: Patient declined stress test in spite of explaining the rationale for pursuing it. Patient otherwise noted to be stable. 2D echo results were discussed with the patient CHF: Possibly based on systolic dysfunction.. Clinically this seems likely compensated. Continue baseline diuretic therapy. Patient should be educated in CHF pathway. This should include salt and fluid restriction, daily weighing , adjustment of diuretic therapy based on weight gain et cetera. Patient to be educated that if there is gain of more than 2 pounds in a day or more than 5 pounds in a week, this indicates fluid retention and patient may need to adjust the diuretic therapy. Symptoms associated with CHF exacerbation to be discussed with the patient. This could include rapid weight gain, abdominal bloating, increased shortness of breath, fatigue, tiredness, cardiac arrhythmias et cetera. Troponin I elevation: Could be related to CHF, hypoxemia. Patient will benefit from a nuclear stress test, however patient declines to pursue this. Feel that troponin I elevation is most likely related to supply demand mismatch but ruling out any active ischemia would have been helpful since patient has depressed LVEF. Patient certainly can have this scheduled with his primary care associate art director or with me as an outpatient as he is demanding to be discharged today. Acute respiratory failure: Most likely related to CHF on top of COPD. Currently improved. Atrial fibrillation: Patient has chronic atrial fibrillation. Based on [id number] score chronic anticoagulation is indicated this was explained to the patient. Patient is agreeable. Discussed a small increased risk of bleeding but on the balance benefits far exceeds the risk. Patient felt to be a satisfactory candidate for chronic anticoagulation. Continue chronic anticoagulation. Diabetes: Recommend good control of blood sugar. However should avoid any hypoglycemia. Patient being expertly managed by primary care M.Hany. 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 Creatinine been stable. Avoid any nephrotoxic agents, IV contrast agent dye etc. consider nephrology evaluation. Presence of chronic kidney disease is a prognostic factor. Hyperlipidemia: LDL goal is less than 70. Recommend statin therapy at least intermediate or high dose, of high potency status. Periodic lipid panel and liver panel is indicated. Patient to report any significant muscle discomfort or other side effects. - Time Time with patient: Greater than 35 minutes - CODE STATUS was discussed, patient remains full code. Surrogate decision-maker unchanged. Multiple medical problems were addressed. More than 50% of the time spent coordinating care, discussing management plans with involved caregivers. Management plans discussed with involved personnels. Medical decision making was of moderate to high complexity, patient's has multiple comorbidities. Significant time spent discussing rationale and need to pursue nuclear stress test but patient just does not want to do the stress testing.
[2016-12-20] MEDS ORDERED: FUROSEMIDE 40 MG TABLET PO ONE (14:30)
[2016-12-20] MEDS: INSULIN LISPRO 100 UNIT/ML 3 ML VIAL SUBCUT PRN (17:11)
[2016-12-20] MEDS: SPIRONOLACTONE 25 MG TABLET PO SCH (17:11)
[2016-12-20] MEDS: LANSOPRAZOLE 30 MG TAB.RAP.DR PO SCH (18:38)
[2016-12-20] MEDS: FUROSEMIDE 40 MG TABLET PO SCH (21:55)
[2016-12-20] MEDS: SIMVASTATIN 10 MG TABLET PO SCH (21:55)
[2016-12-20] MEDS: WARFARIN SODIUM 5 MG TABLET PO SCH (21:55)
[2016-12-21] MEDS: ACETAMINOPHEN 325 MG TABLET PO PRN ×2 (02:00→09:44)
[2016-12-21 05:55] LABS: PROTHROMBIN TIME 36.2 SEC (11.4-15.4)
[2016-12-21] MEDS: LANSOPRAZOLE 30 MG TAB.RAP.DR PO SCH (06:05)
[2016-12-21 06:22] LABS: ANION GAP 11 (5-19); BLOOD UREA NITROGEN 43 mg/dL (7-20); CALCIUM 8.6 mg/dL (8.4-10.2); CARBON DIOXIDE 23 mmol/L (22-30); CHLORIDE 106 mmol/L (98-107); CREATININE RESULT 2.02 mg/dL (0.52-1.25); GLUCOSE 202 mg/dL (75-110); POTASSIUM 4.6 mmol/L (3.6-5.0); SODIUM 139.9 mmol/L (137-145)
--- NOTE | 2016-12-21 08:44 | PDOC DISCHARGE SUMMARY ---
General - Admit/Disc Date/PCP Admission Date/Primary Care Provider: 12/19/16 00:47 Discharge Date: 12/21/16 - Discharge Diagnosis (1) Acute on chronic systolic (congestive) heart failure Is this a current diagnosis for this admission?: Yes (2) Elevated troponin Is this a current diagnosis for this admission?: Yes (3) Atrial fibrillation Is this a current diagnosis for this admission?: Yes (5) CKD (chronic kidney disease), stage III Is this a current diagnosis for this admission?: Yes (6) Diabetes mellitus type 2 in obese Is this a current diagnosis for this admission?: Yes (7) HLD (hyperlipidemia) Is this a current diagnosis for this admission?: Yes (8) Coronary artery disease Is this a current diagnosis for this admission?: Yes (9) GERD (gastroesophageal reflux disease) Is this a current diagnosis for this admission?: Yes (10) Anemia, chronic disease Is this a current diagnosis for this admission?: Yes (11) Anxiety and depression Is this a current diagnosis for this admission?: Yes - Additional Information Resuscitation Status: Full Code Discharge Diet: Cardiac - low fat, low salt Discharge Activity: Activity As Tolerated, Balance Activity w/Rest, Weigh Daily Home Medications: Amiodarone HCl [Cordarone 200 mg Tablet] 200 mg PO DAILY 10/01/16 Aspirin [Ecotrin 325 mg EC Tablet] 325 mg PO DAILY 10/01/16 Carvedilol [Coreg 12.5 mg Tablet] 12.5 mg PO Q12 10/01/16 Digoxin [Lanoxin 0.125 mg Tablet] 0.125 mg PO DAILY 10/01/16 Furosemide [Lasix] 40 mg PO Q12 10/01/16 Glimepiride [Amaryl 4 mg Tablet] 4 mg PO Q12 10/01/16 Potassium Chloride [K-Tab ER] 20 meq PO DAILY 10/01/16 Simvastatin [Zocor 20 mg Tablet] 20 mg PO QHS 10/01/16 Spironolactone [Aldactone 25 mg Tablet] 25 mg PO WSUPPER 10/01/16 Ranitidine HCl [Zantac 150 mg Tablet] 150 mg PO BIDP PRN 12/19/16 Amoxicillin/Potassium Clav [Augmentin 875-125 Tablet] 1 each PO BID #20 tablet 12/21/16 Warfarin Sodium [Coumadin 2.5 mg Tablet] 2.5 mg PO QHS #30 tablet 12/21/16 Additional Information: PT/INR checked with primary care physician on December 25, 2016. Home health for physical therapy. History of Present Illness Patient complains of: Shortness of breath History of Present Illness: DIEGO CHING is a 76 year old male with underlying known systolic congestive heart failure, but by his account, no chronic underlying pulmonary disease, including asthma, COPD, or obstructive sleep apnea, who presents to the emergency room for evaluation of above complaint. Patient has been discussed with emergency room physician who evaluated the patient. He describes a one-week history of slowly progressive difficulty breathing, in particular with much of any exertion. Was found by EMS to be in severe respiratory distress, with 84% saturation on room air. Was placed on CPAP and given a breathing treatment en route to the emergency room. Was placed on BiPAP in our emergency room and has remained on same until I saw him. Breathing much more comfortably now, and he has tolerated being placed on nasal cannula since I have seen him. Denies chest or abdominal pain. No nausea vomiting, fever or chills. No diarrhea or dysuria. Occasional cough, on occasion slightly productive of phlegm, which he swallows. Does not think he has gained weight recently. States up until 2 weeks ago, he was weighing himself on a daily basis. Has not weighed himself since then. Occasional ankle swelling, right greater than left. No history of pulmonary embolus or DVT. Chronically anticoagulated on Coumadin , for atrial fibrillation. Status post AICD implant. Has a history of noncompliance with medications, and states he has not seen his senior animator in at least a year. States he has been taking his medications as prescribed, but freely admits that he eats a lot of canned food along with a lot of "sugary foods." States he has never smoked. Denies alcohol or illicit drug use. Hospitalized on our service the through 03 October of this year, with final diagnoses including acute on chronic systolic congestive heart failure exacerbation, with a similar admission the month prior to that for same. History and physical and discharge summary have been reviewed.. Dictation via voice recognition software. Laboratory results are listed in [employer] and are reviewed. X-ray summary results are listed below, with full report(s) reviewed. . EKG reviewed and compared to prior tracing from 01 October of this year. Hospital Course Hospital Course: The patient was admitted to [facility]. The patient was placed on intravenous diuretics. Patient was referred to cardiology for further evaluation. Cardiac enzymes were obtained and were abnormal. 2D echocardiogram revealed an ejection fraction of 25%. Cardiology thinks that the patient's elevated troponin is related to CHF. Patient was continued on his medications including GAYLE inhibitor, Lanoxin, amiodarone. Patient significantly improved the following day of admission. Patient was wanting to go home at that time and eventually wanted to leave AGAINST MEDICAL ADVICE as well. Patient agreed to stay for another day in the hospital and was cleared by cardiology to be discharged. His course was noted for mild leukocytosis without fever and the patient has complained of sinus congestion and runny nose probably from underlying sinus infection. He will be started on antibiotic on an outpatient basis and advised to follow-up with his primary care physician. Likewise his INR was noted to increase and the Coumadin was decreased to half of 5 mg and advised to recheck PT/INR in 3-4 days. The rest of the hospital stay is unremarkable. Patient was discharged with above instructions. Physical Exam Vital Signs: Temp Pulse Resp BP Pulse Ox 98.4 F 59 L 20 129/46 H 99 12/21/16 04:00 12/21/16 04:00 12/21/16 04:00 12/21/16 04:00 12/21/16 04:00 Intake & Output 12/20/16 12/21/16 12/22/16 06:59 06:59 06:59 Intake Total 782 1417 Output Total 100 Balance 682 1417 Weight 85.9 kg General appearance: PRESENT: no acute distress, cooperative Head exam: PRESENT: normocephalic Eye exam: PRESENT: EOMI Mouth exam: PRESENT: moist, neck supple Neck exam: ABSENT: JVD Respiratory exam: PRESENT: clear to auscultation salvador. ABSENT: rhonchi, wheezes Cardiovascular exam: PRESENT: irregular rhythm. ABSENT: gallop GI/Abdominal exam: PRESENT: soft. ABSENT: distended, tenderness Extremities exam: PRESENT: other - Trace edema Neurological exam: PRESENT: alert, awake, oriented to person, oriented to place , oriented to time, oriented to situation Skin exam: PRESENT: dry, warm. ABSENT: cyanosis Results Laboratory Results: 12/19/16 06:07 12/21/16 05:39 12/21/16 05:39 Sodium 139.9 Potassium 4.6 Chloride 106 Carbon Dioxide 23 Anion Gap 11 BUN 43 H Creatinine 2.02 H Est GFR ( Amer) 39 L Est GFR (Non-Af Amer) 32 L Glucose 202 H Calcium 8.6 12/19/16 12/19/16 06:07 11:45 Troponin I 0.215 0.141 Impressions: Chest X-Ray 12/18/16 18:49 IMPRESSION: Minimal basilar densities which could represent atelectatic changes or minimal infiltrates. Cardiomegaly with mild pulmonary vascular congestion. Other findings as noted above Qualifiers PATEINT BEING DISCHARGED WITH ANY OF THE FOLLOWING DIAGNOSIS?: Heart Failure HF Pt being discharged on ACEI for LVEF less than 40%?: Yes HF Pt being discharged on ARBS for LVEF less than 40%?: No Reason(s) for not prescribing ARBS:: Not indicated - On GAYLE inhibitor HF Pt with Afib discharged with Warfarin?: Yes HF Pt discharged on evidence-based Beta Karla:: Yes Plan Discharge Plan: Follow-up with primary care physician in 1 week. Follow-up with cardiology service Dr. Anderson in 1-2 weeks. Time Spent: Less than 30 Minutes
[2016-12-21 09:06] VITALS: BP 113/44
[2016-12-21] MEDS: POTASSIUM CHLORIDE 10 MEQ TABLET.SA PO SCH (09:38)
[2016-12-21] MEDS: AMIODARONE HCL 200 MG TABLET PO SCH (09:39)
[2016-12-21] MEDS: FUROSEMIDE 40 MG TABLET PO SCH (09:39)
[2016-12-21] MEDS: GLIMEPIRIDE 4 MG TABLET PO SCH (09:40)
[2016-12-21] MEDS: CARVEDILOL 12.5 MG TABLET PO SCH (09:40)
[2016-12-21] MEDS: INSULIN LISPRO 100 UNIT/ML 3 ML VIAL SUBCUT PRN (09:40)
[2016-12-21] MEDS: ASPIRIN 325 MG TABLET, ENT COATED PO SCH (09:40)
[2016-12-21] MEDS: DIGOXIN 0.125 MG TABLET PO SCH (09:40)
[2016-12-21] MEDS: DOCUSATE SODIUM 100 MG CAPSULE PO SCH (09:40)
--- NOTE | 2016-12-22 12:37 | PDOC PROGRESS REPORT ---
Subjective Progress Note for:: 12/21/16 Subjective:: Patient seems to be doing better. Patient denied any chest pain. Patient is wanting to be discharged home. Yesterday he declined to undergo a stress test although rationale was explained to the patient in detail. Pt is denying any chest arm or neck discomfort. Patient denying any PND, orthopnea. Patient denied any sustained palpitations, dizziness, syncope, near syncope. Patient denying any fever chills. Patient denying any other significant discomfort. Patient is maintaining ventricular paced rhythm. Patient has not been seen in the last 3 years for defibrillator follow-up. Patient claims he had difficulty in transportation to [place]. Review of systems: Rest review of systems negative. Medications: Medications have been reviewed. Physical Exam Vital Signs: Temp Pulse Resp BP Pulse Ox 98.4 F 59 L 20 113/44 L 99 12/21/16 09:03 12/21/16 09:03 12/21/16 09:03 12/21/16 09:03 12/21/16 09:03 Intake & Output 12/20/16 12/21/16 12/22/16 06:59 06:59 06:59 Intake Total 782 1417 Output Total 100 Balance 682 1417 Weight 85.9 kg Exam: GENERAL: well-nourished and in no acute distress. Alert and oriented x3 HEAD: Atraumatic, normocephalic. EYES: Pupils equal round and reactive to light, extraocular movements intact, sclera anicteric, conjunctiva are normal. ENT: TMs normal, nares patent, oropharynx clear without exudates. Moist mucous membranes. No oral ulcerations or bleeding gums noted NECK: supple without lymphadenopathy. Trachea is central. No cervical or axillary lymphadenopathy noted. Carotids are 2+, JVD WNL LUNGS: Respiration seems nonlabored, no significant accessory muscle action noted. Breath sounds clear to auscultation bilaterally and equal noted. No wheezes rales or rhonchi noted. No significant dullness noted on percussion. CHEST: Palpation of the chest wall shows no significant chest wall tenderness. No other significant abnormalities noted. Defibrillator noted left-sided chest. 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 ABDOMEN: Soft, no significant tenderness appreciated, normoactive bowel sounds. No guarding, no rebound. No rigidity noted . No masses appreciated. EXTREMITIES: Pedal pulses are 1-2+, no calf tenderness noted. No clubbing or cyanosis.trace pedal edema noted NEUROLOGICAL: Focused neurological exam showed no significant neurologic deficit. Normal speech, no focal weakness appreciated. PSYCH: Normal mood, normal affect. Judgment and insight within normal limits. SKIN: No significant ecchymosis, rash, ulcerations or signs of pruritus noted. MUSCULOSKELETAL EXAM: No significant joint swelling noted. Results Laboratory Results: 12/19/16 06:07 12/21/16 05:39 12/21/16 05:39 Sodium 139.9 Potassium 4.6 Chloride 106 Carbon Dioxide 23 Anion Gap 11 BUN 43 H Creatinine 2.02 H Est GFR ( Amer) 39 L Est GFR (Non-Af Amer) 32 L Glucose 202 H Calcium 8.6 12/19/16 12/19/16 06:07 11:45 Troponin I 0.215 0.141 EKG Comments: Telemetry strips reviewed. It showed ventricular paced rhythm. Underlying atrial fibrillation suspected. Impressions: Chest X-Ray 12/18/16 18:49 IMPRESSION: Minimal basilar densities which could represent atelectatic changes or minimal infiltrates. Cardiomegaly with mild pulmonary vascular congestion. Other findings as noted above Assessment & Plan - Diagnosis (1) Acute on chronic systolic (congestive) heart failure Is this a current diagnosis for this admission?: Yes (2) Elevated troponin Is this a current diagnosis for this admission?: Yes (3) Acute respiratory failure with hypoxemia Is this a current diagnosis for this admission?: Yes (4) Atrial fibrillation Qualifiers: Atrial fibrillation type: chronic Qualified Code(s): I48.2 - Chronic atrial fibrillation Is this a current diagnosis for this admission?: Yes (5) Diabetes mellitus type 2 in obese Is this a current diagnosis for this admission?: Yes (6) HLD (hyperlipidemia) Qualifiers: Hyperlipidemia type: unspecified Qualified Code(s): E78.5 - Hyperlipidemia, unspecified Is this a current diagnosis for this admission?: Yes (7) CKD (chronic kidney disease), stage III Is this a current diagnosis for this admission?: Yes - Notes Notes: CHF: Possibly based on systolic dysfunction.. Clinically this seems compensated. Continue baseline diuretic therapy. Patient encouraged to weigh himself daily and adjust diuretics accordingly. Patient seems to be under satisfactory medical regimen otherwise. Acute respiratory failure: Most likely related to CHF on top of COPD. Currently improved. Patient does not seem to be needing oxygen supplementation. Troponin I elevation: This has stabilized. Patient has been without any clinical angina or angina equivalent symptoms. Troponin I elevation is felt to be due to CHF and hypoxemia in setting of chronic renal failure. Cannot rule out any ischemia or arrhythmia component but felt to be unlikely. Patient as noted above has declined to undergo ischemia workup at this point but this would be considered as an outpatient. For personal reason he wants to be discharged today. Feel patient is reasonably stable for discharge. Atrial fibrillation: Patient has chronic atrial fibrillation. Based on [id number] score chronic anticoagulation is indicated this was explained to the patient. Patient is agreeable. Discussed a small increased risk of bleeding but on the balance benefits far exceeds the risk. Patient felt to be a satisfactory candidate for chronic anticoagulation. Continue chronic anticoagulation. Diabetes: Recommend good control of blood sugar. However should avoid any hypoglycemia. Patient being expertly managed by primary care MAlfredo. 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 Creatinine been stable. Avoid any nephrotoxic agents, IV contrast agent dye etc. consider nephrology evaluation. Presence of chronic kidney disease is a prognostic factor. Hyperlipidemia: LDL goal is less than 70. Recommend statin therapy at least intermediate or high dose, of high potency status. Periodic lipid panel and liver panel is indicated. Patient to report any significant muscle discomfort or other side effects. - Time Time with patient: 15-25 minutes - CODE STATUS was discussed, patient remains full code. Surrogate decision-maker patient's son. Multiple medical problems were addressed. More than 50% of the time spent coordinating care, discussing management plans with involved caregivers. Management plans discussed with involved personnels. Medical decision making was of moderate to high complexity , patient's has multiple comorbidities. Medications reviewed and adjusted accordingly: Yes
== END 2016-12-21 09:55 | disposition home health service (06) | DRG 291 ==
LOC: ER 18:40 → UNDOADMOB 23:07 → EH 23:07 → INTOOBSV 23:07 → OBSVTOIN 23:07 → EH 12-19 00:47 → 3S 12-19 02:27
PROVIDERS: ADMIT Family Medicine; ATTEND Family Medicine
PROC: 5A09457 Assistance with Respiratory Ventilation, 24-96 Consecutive Hours, Continuous Positive Airway Pressure (ICD-10-PCS; principal; 2016-12-18)
DX: I50.23 Acute on chronic systolic (congestive) heart failure (principal); J96.01 Acute respiratory failure with hypoxia; I48.2 Chronic atrial fibrillation; E11.22 Type 2 diabetes mellitus with diabetic chronic kidney disease; N18.3 Chronic kidney disease, stage 3 (moderate); E11.9 Type 2 diabetes mellitus without complications; E66.9 Obesity, unspecified; E78.5 Hyperlipidemia, unspecified; I25.10 Atherosclerotic heart disease of native coronary artery without angina pectoris; K21.9 Gastro-esophageal reflux disease without esophagitis; F32.9 Major depressive disorder, single episode, unspecified; D64.9 Anemia, unspecified; F41.1 Generalized anxiety disorder; R74.8 Abnormal levels of other serum enzymes; E87.5 Hyperkalemia; Z85.828 Personal history of other malignant neoplasm of skin; Z95.810 Presence of automatic (implantable) cardiac defibrillator; Z79.02 Long term (current) use of antithrombotics/antiplatelets; Z91.19 Patient's noncompliance with other medical treatment and regimen; Z88.8 Allergy status to other drugs, medicaments and biological substances; Z82.49 Family history of ischemic heart disease and other diseases of the circulatory system
CPT/HCPCS: 36415; 71010; 80048; 80061; 80076; 80162; 81001; 82803; 82962; 83036; 83735; 83880; 84443; 84484; 85025; 85610; 85730; 93005; 93010; 93306; 94640; 94660; 94799; 96374; 99291; G8978-GP; G8979-GP; J1815; J1940; J3490; J7620

== ENCOUNTER 2017-01-04 18:13 | Emergency (ER) | payer MEDICARE ==
--- NOTE | 2017-01-04 19:11 | RADIOLOGY REPORT (SQ) ---
EXAM DESCRIPTION: CHEST SINGLE VIEW COMPLETED DATE/TIME: 01/04/2017 6:58 pm REASON FOR STUDY: SOB COMPARISON: 12/18/2016 EXAM PARAMETERS: NUMBER OF VIEWS: One view. TECHNIQUE: Single frontal radiographic view of the chest acquired. RADIATION DOSE: NA LIMITATIONS: None. FINDINGS: LUNGS AND PLEURA: Stable chronic lung change without new opacities, masses or pneumothorax . No pleural effusion. MEDIASTINUM AND HILAR STRUCTURES: No masses. Contour normal. HEART AND VASCULAR STRUCTURES: Heart stable in size. Normal vasculature. BONES: No acute findings. HARDWARE: Stable. OTHER: No other significant finding. IMPRESSION: NO ACUTE RADIOGRAPHIC FINDING IN THE CHEST. NO SIGNIFICANT CHANGE FROM PRIOR STUDY. TECHNICAL DOCUMENTATION: JOB ID: [id number]
--- NOTE | 2017-01-04 19:14 | ER Document Report ---
ED General - General Chief Complaint: Dizziness Stated Complaint: DIZZINESS Time Seen by Provider: 01/04/17 18:39 Notes: The patient is a 76-year-old male, past medical history systolic heart failure ( on Coumadin and digoxin), hypertension, presents with 2 weeks of intermittent lightheadedness and mild shortness of breath. He was discharged from [facility] 2.5 weeks ago was having similar symptoms. His Lasix dose was initially increased to 40 mg bid, but he did not follow-up with his primary care physician to see if the medication needs to be adjusted fully. He takes 650 mg aspirin twice a day for his arthritic pains. He is taking his Coumadin as instructed, but he has not had his INR rechecked since he was discharged. He denies chest pain, leg swelling, nausea, vomiting, fevers, urinary symptoms, headache, focal weakness, numbness, difficulty swallowing or rash. TRAVEL OUTSIDE OF THE [place] IN LAST 30 DAYS: No - Related Data Allergies/Adverse Reactions: lisinopril Adverse Reaction (Severe, Verified 01/04/17 18:26) Syncope Past Medical History - General Information source: Patient - Social History Smoking Status: Former Smoker Chew tobacco use (# tins/day): No Frequency of alcohol use: None Drug Abuse: None Family History: Reviewed & Not Pertinent Patient has suicidal ideation: No Patient has homicidal ideation: No - Past Medical History Cardiac Medical History: Reports: Hx Atrial Fibrillation, Hx Congestive Heart Failure - Systolic, Hx Heart Attack, Hx Hypercholesterolemia, Hx Hypertension Denies: Hx DVT, Hx Pulmonary Embolism Pulmonary Medical History: Denies: Hx Asthma, Hx COPD, Hx Sleep Apnea Neurological Medical History: Denies: Hx Seizures Endocrine Medical History: Reports: Hx Diabetes Mellitus Type 2. Denies: Hx Diabetes Mellitus Type 1, Hx Hyperthyroidism, Hx Hypothyroidism Renal/ Medical History: Denies: Hx Peritoneal Dialysis Malignancy Medical History: Reports Hx Skin Cancer GI Medical History: Reports: Hx Gastroesophageal Reflux Disease - Mild. Denies : Hx Cirrhosis, Hx Hepatitis Psychiatric Medical History: Reports: Hx Depression - Mild Infectious Medical History: Denies: Hx Hepatitis Past Surgical History: Reports: Hx Cardiac Surgery - cabg, Hx Internal Defibrillator, Hx Pacemaker - Immunizations Hx Diphtheria, Pertussis, Tetanus Vaccination: No Hx Pneumococcal Vaccination: 02/24/16 Review of Systems - Review of Systems Notes: REVIEW OF SYSTEMS: CONSTITUTIONAL: -fevers, -chills EENT: -eye pain, -difficulty swallowing, -nasal congestion CARDIOVASCULAR:-chest pain, -syncope. RESPIRATORY: -cough, +SOB GASTROINTESTINAL: -abdominal pain, - nausea, -vomiting, -diarrhea GENITOURINARY: -dysuria, -hematuria MUSCULOSKELETAL: -back pain, -neck pain SKIN: -rash or skin lesions. HEMATOLOGIC: -easy bruising or bleeding. LYMPHATIC: -swollen, enlarged glands. NEUROLOGICAL: -altered mental status or loss of consciousness, -headache, - neurologic symptoms PSYCHIATRIC: -anxiety, -depression. ALL OTHER SYSTEMS REVIEWED AND NEGATIVE. Physical Exam - Vital signs Vitals: Resp BP Pulse Ox 15 125/49 L 96 01/04/17 18:18 01/04/17 18:18 01/04/17 18:18 - Notes Notes: PHYSICAL EXAMINATION: GENERAL: Well-appearing, well-nourished and in no acute distress. HEAD: Atraumatic, normocephalic. EYES: Pupils equal round and reactive to light, extraocular movements intact, sclera anicteric, conjunctiva are normal. ENT: nares patent, oropharynx clear without exudates. Moist mucous membranes. NECK: Normal range of motion, supple without lymphadenopathy LUNGS: Breath sounds clear to auscultation bilaterally and equal. No wheezes rales or rhonchi. HEART: Regular rate and rhythm without murmurs ABDOMEN: Soft, nontender, normoactive bowel sounds. No guarding, no rebound. No masses appreciated. EXTREMITIES: Normal range of motion, no pitting or edema. No cyanosis. NEUROLOGICAL: Cranial nerves grossly intact. Normal speech, normal gait. Normal sensory and motor exams. No posterior cerebellar signs on exam. PSYCH: Normal mood, normal affect. SKIN: Warm, Dry, normal turgor, no rashes or lesions noted. Course - Re-evaluation Re-evalutation: Pt appears well. No evidence of infection to cause an elevated lactate and his leukocytosis is chronic in nature. His elevated lactate may be related to his mild tachpnea when he arrived. No abdominal pain or tenderness to suggest mesenteric ischemia. Lactate improved with IVF. His INR is also elevated. No active bleeding noted, so will hold his Coumadin dose tonight and tomorrow night and he does not require emergent reversal. Spoke to patient and son at bedside and offered admission due to multiple risk factors, but he is adamant that he wants to go home because he feels much better. He is not orthostatic and he is having absolutely no symptoms on discharge. Told patient to not take as much aspirin as he has been, which may have been elevating his INR, and to switch to Tylenol for his arthritic pains. Patient given strict return precautions and he understands. He said that he will call his primary care physician Friday morning for an urgent appointment. - Vital Signs Vital signs: Temp Pulse Resp BP Pulse Ox 99 F 61 20 117/57 L 100 01/04/17 18:26 01/04/17 19:53 01/04/17 22:01 01/04/17 22:01 01/04/17 22:01 - Laboratory Result Diagrams: 01/04/17 18:23 01/04/17 18:23 Laboratory results interpreted by me: 01/04/17 01/04/17 01/04/17 18:23 18:23 18:23 WBC 11.3 H RBC 3.71 L Hgb 9.6 L Hct 29.6 L MCH 25.9 L RDW 18.2 H PT INR APTT BUN 42 H Creatinine 2.15 H Est GFR ( Amer) 36 L Est GFR (Non-Af Amer) 30 L Glucose 156 H Lactic Acid Alkaline Phosphatase 526 H Creatine Kinase 24 L NT-Pro-B Natriuret Pep 2810 H Albumin 3.4 L Lipase 469.6 H 01/04/17 01/04/17 01/04/17 18:23 18:50 21:48 WBC RBC Hgb Hct MCH RDW PT 69.3 H* INR 7.94 H* APTT 151.7 H* BUN Creatinine Est GFR ( Amer) Est GFR (Non-Af Amer) Glucose Lactic Acid 3.9 H 2.3 H Alkaline Phosphatase Creatine Kinase NT-Pro-B Natriuret Pep Albumin Lipase - Diagnostic Test Radiology reviewed: Image reviewed, Reports reviewed Radiology results interpreted by me: CXR: NAD - EKG Interpretation by Me When compared to previous EKG there are: No significant change Additional EKG results interpreted by me: Ventricular-paced rhythm Discharge - Discharge Clinical Impression: Intermittent lightheadedness, Elevated INR Condition: Stable Disposition: HOME, SELF-CARE Additional Instructions: Do not take your Coumadin until your INR is rechecked by your primary care physician on Friday. Also, only take a baby aspirin and switch to Tylenol 500 mg every 4 hours as needed for your arthritis pain. If you have any worsening symptoms, return immediately to the emergency room for further evaluation and treatment. DIZZINESS: Under normal circumstances, your sense of balance is controlled by a number of signals that your brain receives from several locations: Eyes. No matter what your position, visual signals help you determine where your body is in space and how it's moving. Sensory nerves. These are in your skin, muscles and joints. Sensory nerves send messages to your brain about body movements and positions. Inner ear. The organ of balance in your inner ear is the vestibular labyrinth. It includes loop-shaped structures (semicircular canals) that contain fluid and fine, hair-like sensors that monitor the rotation of your head. Near the semicircular canals are the utricle and saccule, which contain tiny particles called otoconia (u-[id number]-[id number]). These particles are attached to sensors that help detect gravity and ytqv-jeh-kcjik motion. Good balance depends on at least two of these three sensory systems working well. For instance, closing your eyes while washing your hair in the shower doesn't mean you'll lose your balance. Signals from your inner ear and sensory nerves help keep you upright. However, if your central nervous system can't process signals from all of these locations, if the messages are contradictory, or if the sensory systems aren't functioning properly, you may experience loss of balance. Dizziness may have a number of potential causes. These may include: Vertigo Vertigo - the false sense of motion or spinning - is the most common symptom of dizziness. Sitting up or moving around may make it worse. Sometimes vertigo is severe enough to cause nausea and vomiting. Vertigo usually results from a problem with the nerves and the structures of the balance mechanism in your inner ear (vestibular system), which sense movement and changes in your head position. Abnormal rhythmic eye movements ( nystagmus) almost always accompany vertigo. Causes of vertigo may include: Benign paroxysmal positional vertigo (BPPV). BPPV involves intense, brief episodes of vertigo associated with a change in the position of your head, often when you turn over in bed or sit up in the morning. It occurs when normal calcium carbonate crystals (otoconia) break loose and fall into the wrong part of the canals in your inner ear. When these particles shift, they stimulate sensors in your ear, producing an episode of vertigo. Doctors don't know what causes BPPV, but it may be a natural result of aging. Trauma to your head also may lead to BPPV. Inflammation in the inner ear. Signs and symptoms of inflammation of the inner ear (acute vestibular neuronitis or labyrinthitis) include sudden, intense vertigo that may persist for several days, with nausea and vomiting. It can be incapacitating, requiring bed rest to minimize the signs and symptoms. Fortunately, vestibular neuronitis generally subsides and clears up on its own. Recovery time may be shorter with vestibular rehabilitation exercises. Although the cause of this condition is unknown, it may be a viral infection. Meniere's disease. This disease involves the excessive buildup of fluid in your inner ear. It may affect adults at any age and is characterized by sudden episodes of vertigo lasting 30 minutes to an hour or longer. Other signs and symptoms include the feeling of fullness in your ear, buzzing or ringing in your ear (tinnitus), and fluctuating hearing loss. The cause of Meniere's disease is unknown. Vestibular migraine. People who experience a vestibular migraine are very sensitive to motion. Dizziness and vertigo caused by a vestibular migraine may be triggered by turning your head quickly, being in a crowded or confusing place , driving or riding in a vehicle, or even watching movement on TV. A vestibular migraine may cause feelings of imbalance or unsteadiness, hearing loss, "muffled " hearing, or ringing in your ears (tinnitus). For most people with a vestibular migraine, vertigo doesn't necessarily happen at the same time as the headache. Instead, typical migraine triggers may lead to vertigo without an actual migraine. Attacks of migrainous vertigo can last from a few minutes to several days. Acoustic neuroma. An acoustic neuroma (schwannoma) is a noncancerous (benign ) growth on the acoustic nerve, which connects the inner ear to your brain. Signs and symptoms of an acoustic neuroma may include dizziness, loss of balance , hearing loss and tinnitus. Rapid changes in motion. Riding on roller coasters or in boats, cars or even airplanes may on occasion make you dizzy. Other causes. Rarely, vertigo can be a symptom of a more serious neurological problem such as a stroke, brain hemorrhage or multiple sclerosis. Feeling of faintness (presyncope) "Presyncope" is the medical term for feeling faint and lightheaded without losing consciousness. Sometimes nausea, pale skin and a sense of dizziness accompany a feeling of faintness. Causes of presyncope include: Drop in blood pressure (orthostatic hypotension). A dramatic drop in your systolic blood pressure - the higher number in your blood pressure reading - may result in lightheadedness or a feeling of faintness. It can occur after sitting up or standing too quickly. Inadequate output of blood from the heart. Conditions such as partially blocked arteries (atherosclerosis), disease of the heart muscle (cardiomyopathy) , abnormal heart rhythm (arrhythmia) or a decrease in blood volume may cause inadequate blood flow from your heart. Loss of balance (disequilibrium) Disequilibrium is the loss of balance or the feeling of unsteadiness when you walk. Causes may include: Inner ear (vestibular) problems. Abnormalities with your inner ear can cause you to feel like you are floating, have a heavy head or are unsteady in the dark. Sensory disorders. Failing vision and nerve damage in your legs (peripheral neuropathy) are common in older adultsand may result in difficulty maintaining your balance. Joint and muscle problems. Muscle weakness and osteoarthritis - the type of arthritis that involves wear and tear of your joints - can contribute to loss of balance when it involves your weight-bearing joints. Medications. Loss of balance can be a side effect of certain medications, such as anti-seizure drugs, sedatives and tranquilizers. Lightheadedness and other kinds of dizziness Feeling lightheaded is the feeling of being "spaced out" or having the sensation of spinning inside your head. It can also give you the sensation that if your lightheadedness worsens, you might lose consciousness. Causes may include: Inner ear disorders. These abnormalities of your inner ear can lead to illusions of motion and make you feel like you're floating. Anxiety disorders. Certain anxiety disorders, such as panic attacks and a fear of leaving home or being in large, open spaces (agoraphobia), may cause lightheadedness. Hyperventilation. Abnormally rapid breathing that often accompanies anxiety disorders may make you feel lightheaded. NORMAL EXAM AND WORKUP: At this time, your examination and workup show no significant abnormality. No significant abnormal physical findings were noted. All laboratory, EKG, and imaging (x-ray, CT scans, ultrasound) studies that were ordered show no significant abnormality. Although your examination and all studies that were ordered showed no significant abnormal finding, there are no examinations and no studies that are 100% accurate. There is always the possibility that some abnormality could exist and not be detected with physical examination or within the limits and capabilities of laboratory and other studies. You should return or follow up as you were instructed on your visit today for further evaluation if your symptoms do not resolve. FOLLOW-UP CARE: If you have been referred to a physician for follow-up care, call the physician s office for an appointment as you were instructed or within the next two days. If you experience worsening or a significant change in your symptoms, notify the physician immediately or return to the Emergency Department at any time for re-evaluation. Referrals: PEREZ YOUSSEF MD [ACTIVE STAFF] - Follow up as needed
[2017-01-04 19:17] LABS: ABSOLUTE BASOPHILS # (AUTO) 0.1 10^3/uL (0.0-0.2); ABSOLUTE EOSINOPHILS # (AUTO) 0.1 10^3/uL (0.0-0.6); ABSOLUTE LYMPHOCYTES (AUTO) 2.2 10^3/uL (0.5-4.7); ABSOLUTE MONOCYTES (AUTO) 0.9 10^3/uL (0.1-1.4); BASOPHILS % (AUTO) 0.6 % (0-2); EOSINOPHILS % (AUTO) 1.2 % (0-6); HEMATOCRIT 29.6 % (37.9-51.0); HEMOGLOBIN 9.6 g/dL (13.5-17.0); HGB HCT DIFFERENCE -0.8; LYMPHOCYTES % (AUTO) 19.5 % (13-45); MEAN CORPUSCULAR HEMOGLOBIN 25.9 pg (27.0-33.4); MEAN CORPUSCULAR HGB CONC 32.4 g/dL (32.0-36.0); MEAN CORPUSCULAR VOLUME 80 fl (80-97); MONOCYTES % (AUTO) 7.7 % (3-13); RED BLOOD COUNT 3.71 10^6/uL (4.35-5.55); RED CELL DISTRIBUTION WIDTH 18.2 % (11.5-14.0); WHITE BLOOD COUNT 11.3 10^3/uL (4.0-10.5)
[2017-01-04 19:41] LABS: TROPONIN I 0.043 ng/mL
[2017-01-04 19:49] LABS: ALANINE AMINOTRANSFERASE 28 U/L (21-72); ALBUMIN 3.4 g/dL (3.5-5.0); ALKALINE PHOSPHATASE 526 U/L (38-126); ANION GAP 17 (5-19); ASPARTATE AMINO TRANSFERASE 22 U/L (17-59); BILIRUBIN,DIRECT 0.4 mg/dL (0.0-0.4); BILIRUBIN,TOTAL 0.4 mg/dL (0.2-1.3); BLOOD UREA NITROGEN 42 mg/dL (7-20); CALCIUM 8.9 mg/dL (8.4-10.2); CARBON DIOXIDE 22 mmol/L (22-30); CHLORIDE 105 mmol/L (98-107); CREATINE KINASE 24 U/L (55-170); CREATININE RESULT 2.15 mg/dL (0.52-1.25); DIGOXIN 1.22 ng/mL (0.8-2.0); GLUCOSE 156 mg/dL (75-110); LIPASE 469.6 U/L (23-300); PARTIAL THROMBOPLASTIN TIME 151.7 SEC (23.5-35.8); PROTHROMBIN TIME 69.3 SEC (11.4-15.4); SODIUM 143.6 mmol/L (137-145); TOTAL PROTEIN 6.3 g/dL (6.3-8.2)
[2017-01-04] MEDS ORDERED: NORMAL SALINE 500 ML IV ONE (19:56)
--- NOTE | 2017-01-04 21:05 | RADIOLOGY REPORT (SQ) ---
EXAM DESCRIPTION: CT HEAD WITHOUT COMPLETED DATE/TIME: 01/04/2017 8:45 pm REASON FOR STUDY: dizziness COMPARISON: None. TECHNIQUE: Axial images acquired through the brain without intravenous contrast. Images reviewed wi th bone, brain and subdural windows. Images stored on PACS. All CT scanners at this facility use dose modulation, iterative reconstruction, and/or weight based d osing when appropriate to reduce radiation dose to as low as reasonably achievable (ALARA). [facility]: Dose Right [facility]: CareDose [facility]: Dose Right [facility]: Teradose 4D [facility]: [employer] RADIATION DOSE: Up-to-date CT equipment and radiation dose reduction techniques were employed. CTDIv ol: 64.6 mGy. DLP: 1680 mGy-cm. mGy. LIMITATIONS: None. FINDINGS: VENTRICLES: Prominent. CEREBRUM: No masses. No hemorrhage. No midline shift. Normal coats/white matter differentiation. N o evidence for acute infarction. CEREBELLUM: No masses. No hemorrhage. No alteration of density. No evidence for acute infarction. EXTRAAXIAL SPACES: Mild age-related involutional change. No fluid collections. No masses. ORBITS AND GLOBE: No intra- or extraconal masses. Normal contour of globe without masses. CALVARIUM: No fracture. PARANASAL SINUSES: No fluid or mucosal thickening. SOFT TISSUES: No mass or hematoma. OTHER: No other significant finding. IMPRESSION: MILD CHRONIC INVOLUTIONAL CHANGE. NO ACUTE PROCESS. TECHNICAL DOCUMENTATION: JOB ID: [id number] Quality ID # [id number]: Final reports with documentation of one or more dose reduction techniques (e.g., Au tomated exposure control, adjustment of the mA and/or kV according to patient size, use of iterative reconstruction technique) 2010 [employer]- All Rights Reserved
[2017-01-04 23:02] LABS: APPEARANCE,URINE CLEAR; BILIRUBIN,URINE NEGATIVE (NEGATIVE); GLUCOSE, URINE NEGATIVE (NEGATIVE); KETONES,URINE NEGATIVE (NEGATIVE); LEUKOCYTE ESTERASE,URINE NEGATIVE (NEGATIVE); NITRITE,URINE NEGATIVE (NEGATIVE); PROTEIN,URINE NEGATIVE (NEGATIVE); URINE SPECIFIC GRAVITY 1.011; UROBILINOGEN,URINE NEGATIVE mg/dL (<2.0)
[2017-01-04 23:04] VITALS: BP 119/46
--- NOTE | 2017-01-04 23:56 | EKG REPORT ---
SEVERITY:- ABNORMAL ECG - VENTRICULAR-PACED RHYTHM : Confirmed by: Roger Anderson 04-Jan-2017 23:55:37
== END 2017-01-04 23:03 | disposition home or self-care (01) ==
LOC: ER 18:13
DX: R42 Dizziness and giddiness (principal); R79.1 Abnormal coagulation profile; I11.0 Hypertensive heart disease with heart failure; I50.20 Unspecified systolic (congestive) heart failure; R06.02 Shortness of breath; I48.91 Unspecified atrial fibrillation; E11.9 Type 2 diabetes mellitus without complications; Z87.891 Personal history of nicotine dependence; Z79.02 Long term (current) use of antithrombotics/antiplatelets; Z95.1 Presence of aortocoronary bypass graft
CPT/HCPCS: 93005; 99285; 96360; 36415; 82550; 80162; 83690; 85025; 85610; 85730; 80053; 81001; 84484; 83605; 83880; 71010; 70450; 93010; J7040

== ENCOUNTER 2017-02-10 09:23 | Emergency (ER) | payer MEDICARE ==
--- NOTE | 2017-02-10 09:37 | ER Document Report ---
ED Respiratory Problem - General Stated Complaint: DIFFICULTY BREATHING Time Seen by Provider: 02/10/17 09:28 Notes: 76-year-old male presents with shortness of breath that has been progressive over the last 2-3 weeks he reports. Increasing short of breath particularly with exertion. He states he feels "stopped up" with chest congestion. Today he had some mild thick sputum production but he has had no hemoptysis or other purulent mucus production. Denies fever. No chest pain or discomfort. TRAVEL OUTSIDE OF THE [place] IN LAST 30 DAYS: No - Related Data Allergies/Adverse Reactions: lisinopril Adverse Reaction (Severe, Verified 01/04/17 18:26) Syncope Past Medical History - Social History Smoking Status: Never Smoker Family History: Reviewed & Not Pertinent - Past Medical History Cardiac Medical History: Reports: Hx Atrial Fibrillation, Hx Congestive Heart Failure - Systolic, Hx Heart Attack, Hx Hypercholesterolemia, Hx Hypertension Denies: Hx DVT, Hx Pulmonary Embolism Pulmonary Medical History: Denies: Hx Asthma, Hx COPD, Hx Sleep Apnea Neurological Medical History: Denies: Hx Seizures Endocrine Medical History: Reports: Hx Diabetes Mellitus Type 2. Denies: Hx Diabetes Mellitus Type 1, Hx Hyperthyroidism, Hx Hypothyroidism Renal/ Medical History: Denies: Hx Peritoneal Dialysis Malignancy Medical History: Reports Hx Skin Cancer GI Medical History: Reports: Hx Gastroesophageal Reflux Disease - Mild. Denies : Hx Cirrhosis, Hx Hepatitis Psychiatric Medical History: Reports: Hx Depression - Mild Infectious Medical History: Denies: Hx Hepatitis Past Surgical History: Reports: Hx Cardiac Surgery - cabg, Hx Internal Defibrillator, Hx Pacemaker - Immunizations Hx Diphtheria, Pertussis, Tetanus Vaccination: No Hx Pneumococcal Vaccination: 02/24/16 Review of Systems - Review of Systems -: Yes All other systems reviewed and negative Physical Exam - Vital signs Vitals: Resp Pulse Ox 24 H 96 02/10/17 10:07 02/10/17 10:07 - Notes Notes: Physical Exam: GENERAL: VS as per nursing doc. Well-appearing, well-nourished and in no acute distress. HEAD: Atraumatic, normocephalic. EYES: Pupils equal round and reactive to light, extraocular movements intact, sclera anicteric, no conjunctival injection or discharge. ENT: Nares patent, oropharynx clear without exudates. Moist mucous membranes. NECK: Normal range of motion, supple without lymphadenopathy. No JVD. LUNGS: Breath sounds decreased on the left with slight HEART: Normal S1S2. Regular rate and rhythm without murmurs. Equal peripheral pulses. ABDOMEN: Soft, non-tender EXTREMITIES: Normal range of motion. No calf tenderness. Negative Homans. Minimal trace edema. NEUROLOGICAL: Cranial nerves grossly intact. Normal speech. Normal sensory and motor exams. No gross cerebellar abnormalities. PSYCH: Normal mood, normal affect. SKIN: Warm, dry, no cyanosis, no splinter hemorrhages. Cap refill < 2 sec. Course - Re-evaluation Re-evalutation: 02/10/17 11:56 Labs show findings consistent with prior including anemia which appears stable, abnormal kidney function that appears stable. Troponin is slightly elevated at 0.066 so this will be repeated at 3 hours. At this moment he states he is feeling somewhat better. Discussed with patient and son at his request 02/10/17 14:14 I reviewed findings with the patient including the borderline troponin which is somewhat higher than it was a month ago. He deferred admission and wants to go home. As he did at the end of November with a CHF admission, he declined cardiac stress testing. He will return if he is worsening or if he develops any chest discomfort at all. He will get close follow-up in the next 48 hours. 02/10/17 14:17 - Vital Signs Vital signs: Temp Pulse Resp BP Pulse Ox 22 H 109/49 L 97 02/10/17 11:01 02/10/17 11:01 02/10/17 11:01 - Laboratory Result Diagrams: 02/10/17 10:15 02/10/17 10:15 Laboratory results interpreted by me: 02/10/17 02/10/17 02/10/17 09:59 10:15 10:15 RBC 3.67 L Hgb 9.3 L Hct 28.3 L MCV 77 L MCH 25.4 L RDW 18.9 H PT 36.6 H BUN Creatinine Est GFR ( Amer) Est GFR (Non-Af Amer) ALT Alkaline Phosphatase NT-Pro-B Natriuret Pep Total Protein Albumin Urine Blood MODERATE H 02/10/17 02/10/17 10:15 10:15 RBC Hgb Hct MCV MCH RDW PT BUN 44 H Creatinine 2.15 H Est GFR ( Amer) 36 L Est GFR (Non-Af Amer) 30 L ALT 16 L Alkaline Phosphatase 750 H NT-Pro-B Natriuret Pep 5210 H Total Protein 5.9 L Albumin 3.2 L Urine Blood - Diagnostic Test Radiology reviewed: Image reviewed, Reports reviewed - Stable cardiomegaly - EKG Interpretation by Me Rate: Normal - Ventricular paced rhythm with associated wide QRS, rate 70 Additional EKG results interpreted by me: 02/10/17 14:01 EKG #2 continues to show the ventricular paced rhythm. There is no clear significant change compared to the prior EKG. 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 Return here if worsening otherwise or if you develop any chest discomfort. Finish all of the antibiotics. Prescriptions: Albuterol Sulfate [Proair HFA Inhalation Aerosol 8.5 gm MDI] 2 puff IH Q4H PRN # 1 mdi PRN Reason: Azithromycin [Zithromax 250 mg Tablet] 250 mg PO DAILY #4 tablet Referrals: PRACHI PLUMMER MD [ACTIVE STAFF] - Follow up as needed (Follow-up in the next 2 days.)
[2017-02-10 10:37] LABS: APPEARANCE,URINE CLEAR; BILIRUBIN,URINE NEGATIVE (NEGATIVE); GLUCOSE, URINE NEGATIVE (NEGATIVE); KETONES,URINE NEGATIVE (NEGATIVE); LEUKOCYTE ESTERASE,URINE NEGATIVE (NEGATIVE); NITRITE,URINE NEGATIVE (NEGATIVE); PROTEIN,URINE NEGATIVE (NEGATIVE); URINE SPECIFIC GRAVITY 1.011; UROBILINOGEN,URINE NEGATIVE mg/dL (<2.0)
[2017-02-10 10:39] LABS: ABSOLUTE BASOPHILS # (AUTO) 0.1 10^3/uL (0.0-0.2); ABSOLUTE EOSINOPHILS # (AUTO) 0.5 10^3/uL (0.0-0.6); ABSOLUTE LYMPHOCYTES (AUTO) 1.6 10^3/uL (0.5-4.7); ABSOLUTE MONOCYTES (AUTO) 0.9 10^3/uL (0.1-1.4); ABSOLUTE NEUT (AUTO) 7.2 10^3/uL (1.7-8.2); BASOPHILS % (AUTO) 0.8 % (0-2); EOSINOPHILS % (AUTO) 4.5 % (0-6); HEMATOCRIT 28.3 % (37.9-51.0); HEMOGLOBIN 9.3 g/dL (13.5-17.0); HGB HCT DIFFERENCE -0.4; LYMPHOCYTES % (AUTO) 15.9 % (13-45); MEAN CORPUSCULAR HEMOGLOBIN 25.4 pg (27.0-33.4); MEAN CORPUSCULAR VOLUME 77 fl (80-97); MONOCYTES % (AUTO) 8.7 % (3-13); RED BLOOD COUNT 3.67 10^6/uL (4.35-5.55); RED CELL DISTRIBUTION WIDTH 18.9 % (11.5-14.0); SEGMENTED NEUTROPHILS % (AUTO) 70.1 % (42-78); WHITE BLOOD COUNT 10.3 10^3/uL (4.0-10.5)
[2017-02-10 10:44] LABS: PROTHROMBIN TIME 36.6 SEC (11.4-15.4); VENOUS BLOOD BASE EXCESS 0.2 mmol/L; VENOUS BLOOD PCO2 46.8 mmHg (35-63); VENOUS BLOOD PH 7.36 (7.30-7.42)
--- NOTE | 2017-02-10 10:54 | RADIOLOGY REPORT (SQ) ---
EXAM DESCRIPTION: CHEST SINGLE VIEW COMPLETED DATE/TIME: 02/10/2017 10:32 am REASON FOR STUDY: bed 11 sepsis protocol COMPARISON: 01/04/2017. NUMBER OF VIEWS: One view. TECHNIQUE: Single frontal radiographic view of the chest acquired. LIMITATIONS: None. FINDINGS: LUNGS AND PLEURA: Mild interstitial prominence, similar to previous study. No focal infil trates, masses or pneumothorax. No pleural effusion. MEDIASTINUM AND HILAR STRUCTURES: No masses. Contour normal. HEART AND VASCULAR STRUCTURES: Heart enlarged without failure. Normal vasculature. BONES: No acute findings. HARDWARE: Sternotomy wires. Defibrillator. OTHER: No other significant finding. IMPRESSION: STABLE CARDIOMEGALY. NO SIGNIFICANT CHANGE. TECHNICAL DOCUMENTATION: JOB ID: [id number]- All Rights Reserved
[2017-02-10 11:14] LABS: ALANINE AMINOTRANSFERASE 16 U/L (21-72); ALBUMIN 3.2 g/dL (3.5-5.0); ALKALINE PHOSPHATASE 750 U/L (38-126); ANION GAP 12 (5-19); ASPARTATE AMINO TRANSFERASE 24 U/L (17-59); BILIRUBIN,DIRECT 0.4 mg/dL (0.0-0.4); BILIRUBIN,TOTAL 0.4 mg/dL (0.2-1.3); BLOOD UREA NITROGEN 44 mg/dL (7-20); CALCIUM 8.4 mg/dL (8.4-10.2); CARBON DIOXIDE 26 mmol/L (22-30); CHLORIDE 104 mmol/L (98-107); CREATINE KINASE 55 U/L (55-170); CREATININE RESULT 2.15 mg/dL (0.52-1.25); DIGOXIN 0.97 ng/mL (0.8-2.0); GLUCOSE 75 mg/dL (75-110); POTASSIUM 4.7 mmol/L (3.6-5.0); SODIUM 142.3 mmol/L (137-145); TOTAL PROTEIN 5.9 g/dL (6.3-8.2)
[2017-02-10 11:20] LABS: CREATINE KINASE MB 1.45 ng/mL (<4.55)
[2017-02-10 11:23] LABS: TROPONIN I 0.066 ng/mL
[2017-02-10] MEDS ORDERED: AZITHROMYCIN 250 MG TABLET PO ONE (13:00)
--- NOTE | 2017-02-10 13:14 | EKG REPORT ---
SEVERITY:- ABNORMAL ECG - AFIB/FLUTTER AND VENTRICULAR-PACED RHYTHM : Confirmed by: Michele Franco MD 10-Feb-2017 13:13:46
[2017-02-10 15:36] VITALS: BP 130/58
--- NOTE | 2017-02-10 19:29 | EKG REPORT ---
SEVERITY:- ABNORMAL ECG - AFIB/FLUTTER AND VENTRICULAR-PACED RHYTHM : Confirmed by: Michele Franco MD 10-Feb-2017 19:27:44
== END 2017-02-10 15:34 | disposition home or self-care (01) ==
LOC: ER 09:23
DX: J20.9 Acute bronchitis, unspecified (principal); R06.02 Shortness of breath; R74.8 Abnormal levels of other serum enzymes; D64.9 Anemia, unspecified; R94.4 Abnormal results of kidney function studies; I48.91 Unspecified atrial fibrillation; I25.2 Old myocardial infarction; I10 Essential (primary) hypertension; E11.9 Type 2 diabetes mellitus without complications; Z85.828 Personal history of other malignant neoplasm of skin; Z95.1 Presence of aortocoronary bypass graft; Z95.810 Presence of automatic (implantable) cardiac defibrillator
CPT/HCPCS: 93005; 99285; 36415; 87040; 87086; 82553; 82550; 80162; 85025; 85610; 87088; 80053; 81001; 84484; 87186; 82803; 83605; 83880; 71010; 93010; A9270

== ENCOUNTER 2017-02-13 07:42 | Inpatient (IN) | payer MEDICARE ==
[2017-02-13] MEDS ORDERED: IPRATROPIUM/ALBUTEROL 0.5-2.5 MG/3 ML AMPUL NEB ONE (07:51)
[2017-02-13 08:14] LABS: ABSOLUTE EOSINOPHILS # (AUTO) 0.7 10^3/uL (0.0-0.6); ABSOLUTE LYMPHOCYTES (AUTO) 1.8 10^3/uL (0.5-4.7); ABSOLUTE MONOCYTES (AUTO) 0.9 10^3/uL (0.1-1.4); ABSOLUTE NEUT (AUTO) 9.9 10^3/uL (1.7-8.2); BASOPHILS % (AUTO) 0.2 % (0-2); HEMATOCRIT 27.7 % (37.9-51.0); HEMOGLOBIN 8.9 g/dL (13.5-17.0); LYMPHOCYTES % (AUTO) 13.4 % (13-45); MEAN CORPUSCULAR HGB CONC 32.2 g/dL (32.0-36.0); MEAN CORPUSCULAR VOLUME 78 fl (80-97); RED BLOOD COUNT 3.57 10^6/uL (4.35-5.55); SEGMENTED NEUTROPHILS % (AUTO) 74.4 % (42-78); WHITE BLOOD COUNT 13.3 10^3/uL (4.0-10.5)
--- NOTE | 2017-02-13 08:15 | ER Document Report ---
ED Respiratory Problem - General Information source: Patient TRAVEL OUTSIDE OF THE [place] IN LAST 30 DAYS: No - HPI Patient complains to provider of: Short of breath Associated symptoms: Other - see above <WASHINGTON SMITH - Last Filed: 02/13/17 10:26> <JESSICA HANKS - Last Filed: 02/13/17 15:32> - General Stated Complaint: SHORTNESS OF BREATH Time Seen by Provider: 02/13/17 07:49 Notes: Patient is a 76 year old male who presents to the ED via EMS with complaints of dyspnea. Patient was seen in the ED on 02/10/17 and declined admission and cardiac workup. He wanted to go home and was told to return if his symptoms worsen. Patient was given 1 nebulizer treatment via EMS prior to arrival. He was unable to give a clear history due to not being able to speak with his dyspnea. (WASHINGTON SMITH) - Related Data Allergies/Adverse Reactions: lisinopril Adverse Reaction (Severe, Verified 02/13/17 08:42) Syncope Home Medications: Current Home Medications Amiodarone HCl [Cordarone 200 mg Tablet] 200 mg PO DAILY 02/13/17 [History] Aspirin [Aspirin EC] 81 mg PO DAILY 02/13/17 [History] Carvedilol 12.5 mg PO Q12 02/13/17 [History] Digoxin 125 mcg PO DAILY 02/13/17 [History] Furosemide [Lasix 40 mg Tablet] 40 mg PO Q12 02/13/17 [History] Glimepiride 4 mg PO Q12 02/13/17 [History] Metformin HCl 1,000 mg PO Q12 02/13/17 [History] Potassium Chloride 20 meq PO DAILY 02/13/17 [History] Simvastatin 20 mg PO QHS 02/13/17 [History] Spironolactone 25 mg PO DAILY 02/13/17 [History] Warfarin Sodium [Coumadin 5 mg Tablet] 5 mg PO DAILY 02/13/17 [History] Past Medical History - General Information source: Patient - Social History Smoking Status: Unknown if Ever Smoked Family History: Reviewed & Not Pertinent - Past Medical History Cardiac Medical History: Reports: Hx Atrial Fibrillation, Hx Congestive Heart Failure - Systolic, Hx Heart Attack, Hx Hypercholesterolemia, Hx Hypertension Denies: Hx DVT, Hx Pulmonary Embolism Pulmonary Medical History: Denies: Hx Asthma, Hx COPD, Hx Sleep Apnea Neurological Medical History: Denies: Hx Seizures Endocrine Medical History: Reports: Hx Diabetes Mellitus Type 2. Denies: Hx Diabetes Mellitus Type 1, Hx Hyperthyroidism, Hx Hypothyroidism Renal/ Medical History: Denies: Hx Peritoneal Dialysis Malignancy Medical History: Reports Hx Skin Cancer GI Medical History: Reports: Hx Gastroesophageal Reflux Disease - Mild. Denies : Hx Cirrhosis, Hx Hepatitis Psychiatric Medical History: Reports: Hx Depression - Mild Infectious Medical History: Denies: Hx Hepatitis Past Surgical History: Reports: Hx Cardiac Surgery - cabg, Hx Internal Defibrillator, Hx Pacemaker - Immunizations Hx Diphtheria, Pertussis, Tetanus Vaccination: No Hx Pneumococcal Vaccination: 02/24/16 <WASHINGTON SMITH - Last Filed: 02/13/17 10:26> Review of Systems - Review of Systems Constitutional: No symptoms reported EENT: No symptoms reported Cardiovascular: No symptoms reported Respiratory: See HPI, Short of breath Gastrointestinal: No symptoms reported Genitourinary: No symptoms reported Male Genitourinary: No symptoms reported Musculoskeletal: No symptoms reported Skin: No symptoms reported Hematologic/Lymphatic: No symptoms reported Neurological/Psychological: No symptoms reported <WASHINGTON SMITH - Last Filed: 02/13/17 10:26> Physical Exam - General General appearance: Alert In distress: Moderate - HEENT Head: Normocephalic, Atraumatic Eyes: Normal Extraocular movements intact: Yes Pupils: PERRL Mucous membranes: Dry - Respiratory Respiratory status: Tachypnea, Other - 70% O2 saturation when EMS arrived, unable to speak due to dyspnea Breath sounds: Decreased air movement - bilaterally, Wheezing - Cardiovascular Rhythm: Regular Heart sounds: Normal auscultation Murmur: No - Abdominal Inspection: Normal - Extremities General upper extremity: Normal inspection, Normal ROM General lower extremity: Normal ROM - Neurological Neuro grossly intact: Yes - Psychological Associated symptoms: Normal affect, Normal mood - Skin Skin Temperature: Warm Skin Moisture: Dry Skin Color: Normal <WASHINGTON SMITH - Last Filed: 02/13/17 10:26> - Vital signs Vitals: Resp 20 02/13/17 07:50 Course - Laboratory Result Diagrams: 02/13/17 08:00 02/13/17 08:00 - Consults Dr. Upton Time consulted: 10:01 Consulted provider: will see as inpatient <WASHINGTON SMITH - Last Filed: 02/13/17 10:26> - Laboratory Result Diagrams: 02/13/17 08:00 02/13/17 08:00 - Diagnostic Test Radiology reviewed: Reports reviewed - EKG Interpretation by Me Rhythm: Other - Ventricular paced rhythm <JESSICA HANKS - Last Filed: 02/13/17 15:32> - Re-evaluation Re-evalutation: 02/13/17 Patient is a 76-year-old male who comes in with difficulty breathing. Patient was initially hypoxic. Patient had wheezing and also crackles at his bases. After nebulizer treatment, and BiPAP. The patient's lung sounds on the right has improved but he still has some wheezing on the left. Suspect pneumonia. Patient has been started on antibiotics for nosocomial infection. Patient also with hyperkalemia that has been treated with D50 and insulin. Patient will be admitted to the hospitalist service. He has been able to be weaned off BiPAP here in the emergency department. Patient will be admitted to the IMCU. Understands and agrees with plan. (JESSICA HANKS) - Vital Signs Vital signs: Temp Pulse Resp BP Pulse Ox 97.2 F 59 L 18 120/47 L 100 02/13/17 14:51 02/13/17 14:51 02/13/17 14:51 02/13/17 14:51 02/13/17 14:51 - Laboratory Laboratory results interpreted by me: 02/13/17 02/13/17 02/13/17 08:00 08:00 08:00 WBC 13.3 H RBC 3.57 L Hgb 8.9 L Hct 27.7 L MCV 78 L MCH 25.0 L RDW 19.0 H Absolute Neutrophils 9.9 H Absolute Eosinophils 0.7 H PT 45.2 H VBG pH Potassium 6.1 H* BUN 40 H Creatinine 2.06 H Est GFR ( Amer) 38 L Est GFR (Non-Af Amer) 32 L Glucose 214 H POC Glucose Alkaline Phosphatase 536 H NT-Pro-B Natriuret Pep Total Protein 5.7 L Albumin 3.1 L Urine Blood 02/13/17 02/13/17 02/13/17 08:00 08:00 09:15 WBC RBC Hgb Hct MCV MCH RDW Absolute Neutrophils Absolute Eosinophils PT VBG pH 7.28 L Potassium BUN Creatinine Est GFR ( Amer) Est GFR (Non-Af Amer) Glucose POC Glucose Alkaline Phosphatase NT-Pro-B Natriuret Pep 6500 H Total Protein Albumin Urine Blood LARGE H 02/13/17 10:00 WBC RBC Hgb Hct MCV MCH RDW Absolute Neutrophils Absolute Eosinophils PT VBG pH Potassium BUN Creatinine Est GFR ( Amer) Est GFR (Non-Af Amer) Glucose POC Glucose 250 H Alkaline Phosphatase NT-Pro-B Natriuret Pep Total Protein Albumin Urine Blood - Consults Dr. Upton Reason for consultation: 02/13/17 10:01 Discussed patient with hospitalist. He is accepted for admission to [facility]. (WASHINGTON SMITH) Critical Care Note - Critical Care Note Total time excluding time spent on procedures (mins): 60 - Evaluation and management of respiratory distress, initiation of BiPAP, management of hypoxemia , multiple re-evaluations, coordination of admission, counseling of patient <JESSICA HANKS - Last Filed: 02/13/17 15:32> Discharge <WASHINGTON SMITH - Last Filed: 02/13/17 10:26> - Discharge Admitting Provider: Hospitalist - [place] [facility] Admitted: [facility] <JESSICA HANSK - Last Filed: 02/13/17 15:32> - Discharge Clinical Impression: Hypoxemia, Acute on chronic systolic (congestive) heart failure, Hyperkalemia, Anemia, chronic disease, Probable pneumonia Condition: Stable Disposition: ADMITTED INPATIENT Scribe Attestation: 02/13/17 15:32 I personally performed the services described in the documentation, reviewed and edited the documentation which was dictated to the scribe in my presence, and it accurately records my words and actions. (JESSICA HANKS) Scribe Documentation - Scribe Written by Elbert:: elbert Ceballos, 02/13/2017, 821 acting as scribe for :: Shane <WASHINGTON SMITH - Last Filed: 02/13/17 10:26>
[2017-02-13 08:17] LABS: VENOUS BLOOD BASE EXCESS 0.6 mmol/L; VENOUS BLOOD HCO3 28.7 mmol/L (20-32); VENOUS BLOOD PCO2 62.2 mmHg (35-63); VENOUS BLOOD PH 7.28 (7.30-7.42)
[2017-02-13 08:25] LABS: PROTHROMBIN TIME 45.2 SEC (11.4-15.4)
[2017-02-13] MEDS: MAGNESIUM SULFATE/D5W 1 GM/100 ML RTUPB IV SCH (08:25)
--- NOTE | 2017-02-13 08:28 | RADIOLOGY REPORT (SQ) ---
EXAM DESCRIPTION: CHEST SINGLE VIEW COMPLETED DATE/TIME: 02/13/2017 8:03 am REASON FOR STUDY: SOB COMPARISON: CT chest 07/09/2015 Chest films 07/09/2015, 07/25/2016, 12/18/2016, 01/04/2017, 02/10/2017 EXAM PARAMETERS: NUMBER OF VIEWS: One view. TECHNIQUE: Single frontal radiographic view of the chest acquired. RADIATION DOSE: NA LIMITATIONS: None. FINDINGS: LUNGS AND PLEURA: Pulmonary vascular prominence with mild interstitial edema. Trace fluid in the right and left lateral costophrenic sulci. No dense consolidation worrisome for pneumonia. No pneumothorax. MEDIASTINUM AND HILAR STRUCTURES: No masses. Contour normal. HEART AND VASCULAR STRUCTURES: Stable moderate cardiomegaly with old sternotomy and CABG BONES: Advanced osteoarthritis left shoulder HARDWARE: Left-sided pacemaker/defibrillator OTHER: No other significant finding. IMPRESSION: Pulmonary vascular prominence, mild interstitial edema, trace pleural effusions Stable moderate cardiomegaly, old sternotomy and CABG, left-sided pacemaker TECHNICAL DOCUMENTATION: JOB ID: [id number]
[2017-02-13 08:36] LABS: ALANINE AMINOTRANSFERASE 31 U/L (21-72); ALBUMIN 3.1 g/dL (3.5-5.0); ALKALINE PHOSPHATASE 536 U/L (38-126); ANION GAP 12 (5-19); ASPARTATE AMINO TRANSFERASE 25 U/L (17-59); BILIRUBIN,DIRECT 0.4 mg/dL (0.0-0.4); BILIRUBIN,TOTAL 0.4 mg/dL (0.2-1.3); BLOOD UREA NITROGEN 40 mg/dL (7-20); CALCIUM 8.5 mg/dL (8.4-10.2); CARBON DIOXIDE 26 mmol/L (22-30); CHLORIDE 105 mmol/L (98-107); CREATININE RESULT 2.06 mg/dL (0.52-1.25); GLUCOSE 214 mg/dL (75-110); SODIUM 142.6 mmol/L (137-145); TOTAL PROTEIN 5.7 g/dL (6.3-8.2)
[2017-02-13 08:49] LABS: POTASSIUM 6.1 mmol/L (3.6-5.0)
[2017-02-13 08:52] LABS: TROPONIN I 0.039 ng/mL
[2017-02-13] MEDS ORDERED: FUROSEMIDE INJ/PF 40 MG/4 ML SDV IV ONE (09:44)
[2017-02-13] MEDS ORDERED: INSULIN REG, HUMAN 100 UNIT/ML 3 ML VIAL (PYX) IV ONE (09:51)
[2017-02-13] MEDS ORDERED: DEXTROSE 50%-WATER 25 GM/50 ML DISP.SYRIN IV ONE (09:51)
[2017-02-13] MEDS ORDERED: VANCOMYCIN HCL INJ 1000 MG VIAL IV ONE (10:08)
[2017-02-13] MEDS ORDERED: CEFEPIME 1 GM/D5W RTU 1 GM/50 ML RTUPB IV ONE (10:08)
[2017-02-13] MEDS ORDERED: LEVOFLOXACIN 750 MG/D5W RTU 750 MG/150 ML RTUPB IV ONE (10:09)
[2017-02-13 10:16] LABS: APPEARANCE,URINE CLEAR; BILIRUBIN,URINE NEGATIVE (NEGATIVE); GLUCOSE, URINE NEGATIVE (NEGATIVE); KETONES,URINE NEGATIVE (NEGATIVE); LEUKOCYTE ESTERASE,URINE NEGATIVE (NEGATIVE); NITRITE,URINE NEGATIVE (NEGATIVE); PROTEIN,URINE NEGATIVE (NEGATIVE); URINE SPECIFIC GRAVITY 1.014; UROBILINOGEN,URINE NEGATIVE mg/dL (<2.0)
[2017-02-13] MEDS ORDERED: ONDANSETRON HCL INJ/PF 4 MG/2 ML SDV IV PRN (12:01)
[2017-02-13] MEDS ORDERED: GLUCAGON,HUMAN RECOMB 1 MG INJ IM PRN (12:13)
[2017-02-13] MEDS ORDERED: DEXTROSE 40% GEL 15 GM TUBE PO PRN ×2 (12:13)
[2017-02-13] MEDS ORDERED: DEXTROSE 50%-WATER 25 GM/50 ML DISP.SYRIN IV PRN ×2 (12:13)
[2017-02-13] MEDS ORDERED: CALCIUM GLUCONATE 1000 MG/10 ML INJ IV ONE (12:45)
[2017-02-13] MEDS ORDERED: SODIUM POLYSTYRENE SULFONATE 15 GM/60 ML PO ONE (12:45)
--- NOTE | 2017-02-13 12:48 | EKG REPORT ---
SEVERITY:- ABNORMAL ECG - VENTRICULAR-PACED RHYTHM : Confirmed by: Michele Franco MD 13-Feb-2017 12:47:10
--- NOTE | 2017-02-13 14:34 | PDOC H&P ---
History of Present Illness Admission Date/PCP: 02/13/17 12:01 Patient complains of: Shortness of breath History of Present Illness: DIEGO CHING is a 76 year old male with past medical history significant for CHF, DM 2, HTN, CKD 3, CAD, anemia, and ventricular paced with underlying atrial fibrillation rhythm. He presents to the ER today complaining of sudden onset shortness of breath began at 6 AM. He reports that he has had a decreased appetite and has been more fatigued for approximately a month and noticed increased shortness of breath with activity beginning approximately a week ago with some increase in severity this morning. He was seen in the ED last week for similar complaint and offered admission for cardiac workup which he denied. He is seen resting comfortably in bed while on BiPAP. He reports that he is feeling moderately improved as compared to this morning. He states that he is hungry and would like to eat. Past Medical History Cardiac Medical History: Reports: Atrial Fibrillation, Congestive Heart Failure - Systolic, Coronary Artery Disease, Myocardial Infarction, Hyperlipidema, Hypertension Denies: DVT, Pulmonary Embolism Pulmonary Medical History: Denies: Asthma, Chronic Obstructive Pulmonary Disease (COPD), Sleep Apnea Neurological Medical History: Denies: Hemorrhagic CVA, Ischemic CVA, Seizures Endocrine Medical History: Reports: Diabetes Mellitus Type 2 Denies: Diabetes Mellitus Type 1, Hyperthyroidism, Hypothyroidism Renal/ Medical History: Reports: Chronic Kidney Disease Malignancy Medical History: Reports: Skin Cancer GI Medical History: Reports: Gastroesophageal Reflux Disease - Mild Denies: Cirrhosis, Hepatitis Psychiatric Medical History: Reports: Depression - Mild Hematology: Reports: Anemia - Chronic Past Surgical History Past Surgical History: Reports: Coronary Artery Bypass Graft, Internal Defibrillator, Pacemaker Social History Information Source: Patient Lives with: Alone Smoking Status: Never Smoker Frequency of Alcohol Use: None Hx Recreational Drug Use: No Drugs: None Hx Prescription Drug Abuse: No - Advance Directive Resuscitation Status: Full Code Family History Family History: CAD, DM, Hyperlipidemia, Hypertension Parental Family History Reviewed: Yes - Father, age 76; CVA, DM2. Mother, age 67, OR. Children Family History Reviewed: NA Sibling(s) Family History Reviewed.: Yes - Brother, age 76, OR Medication/Allergy Home Medications: Amiodarone HCl [Cordarone 200 mg Tablet] 200 mg PO DAILY 02/13/17 Aspirin [Aspirin EC] 81 mg PO DAILY 02/13/17 Carvedilol 12.5 mg PO Q12 02/13/17 Digoxin 125 mcg PO DAILY 02/13/17 Furosemide [Lasix 40 mg Tablet] 40 mg PO Q12 02/13/17 Glimepiride 4 mg PO Q12 02/13/17 Metformin HCl 1,000 mg PO Q12 02/13/17 Potassium Chloride 20 meq PO DAILY 02/13/17 Simvastatin 20 mg PO QHS 02/13/17 Spironolactone 25 mg PO DAILY 02/13/17 Warfarin Sodium [Coumadin 5 mg Tablet] 5 mg PO DAILY 02/13/17 Allergies/Adverse Reactions: lisinopril Adverse Reaction (Severe, Verified 02/13/17 08:42) Syncope Review of Systems Constitutional: PRESENT: fatigue, weakness Cardiovascular: PRESENT: dyspnea on exertion, orthropnea. ABSENT: chest pain, palpitations Respiratory: PRESENT: dyspnea. ABSENT: cough, sputum Gastrointestinal: ABSENT: abdominal pain, diarrhea, nausea, vomiting Musculoskeletal: ABSENT: back pain, joint swelling Integumentary: PRESENT: diaphoresis. ABSENT: erythema, rash Neurological: ABSENT: dizziness, focal weakness, numbness, paresthesias, syncope Psychiatric: PRESENT: depression. ABSENT: anxiety, homidical ideation, suicidal ideation Endocrine: ABSENT: polydipsia, polyphagia, polyuria Physical Exam Vital Signs: Temp Pulse Resp BP Pulse Ox 98.2 F 18 108/55 L 99 02/13/17 07:57 02/13/17 12:10 02/13/17 09:08 02/13/17 12:10 General appearance: PRESENT: cooperative, mild distress, obese, well-developed Head exam: PRESENT: atraumatic, normocephalic Eye exam: PRESENT: conjunctiva pink, EOMI, PERRLA. ABSENT: scleral icterus Ear exam: PRESENT: normal external ear exam Mouth exam: PRESENT: moist, tongue midline Teeth exam: PRESENT: poor dentation Neck exam: PRESENT: full ROM. ABSENT: JVD, lymphadenopathy, tenderness, thyromegaly Respiratory exam: PRESENT: decreased breath sounds - throughout, symmetrical, other - currently requires BiPAP. ABSENT: accessory muscle use, chest wall tenderness, crackles, rales, retraction, rhonchi, tachypnea, wheezes Cardiovascular exam: PRESENT: RRR. ABSENT: clicks, gallop, rubs, systolic murmur Pulses: PRESENT: normal radial pulses Vascular exam: PRESENT: normal capillary refill GI/Abdominal exam: PRESENT: hernia - umbilical, normal bowel sounds, soft. ABSENT: distended, mass, organolmegaly, tenderness Rectal exam: PRESENT: deferred Musculoskeletal exam: PRESENT: normal inspection. ABSENT: tenderness Neurological exam: PRESENT: alert, awake, oriented to person, oriented to place , oriented to time, oriented to situation, CN II-XII grossly intact. ABSENT: motor sensory deficit Psychiatric exam: PRESENT: appropriate affect, normal mood Skin exam: PRESENT: dry, intact, normal color, warm Results Impressions: Chest X-Ray 02/13/17 07:51 IMPRESSION: Pulmonary vascular prominence, mild interstitial edema, trace pleural effusions Stable moderate cardiomegaly, old sternotomy and CABG, left-sided pacemaker Assessment & Plan - Diagnosis (1) Acute on chronic systolic (congestive) heart failure Is this a current diagnosis for this admission?: Yes Plan: Pt w/ evidence of volume overload; Pro-BNP doubled since December 24-admit to [facility] 2- will diurese with IV Lasix; monitor closely for worsening hypotension 3- Continue home medication: Coreg and Digoxin 4- trend cardiac enzymes 5- will obtain updated echocardiogram 6- appreciate cardiology consultation (2) Hyperkalemia Is this a current diagnosis for this admission?: Yes Plan: 1- IV calcium gluconate 2- Kayexalate; anticipate he will require repeated dosing to correct 3- Hold home KCL 4- On telemetry (3) Hypoxemia Plan: Likely 2/2 CHF exacerbation 1- BiPAP as needed 3- Plan as above (4) GERD (gastroesophageal reflux disease) Qualifiers: Esophagitis presence: without esophagitis Qualified Code(s): K21.9 - Gastro -esophageal reflux disease without esophagitis Is this a current diagnosis for this admission?: Yes Plan: Continue PPI (5) Anticoagulated Plan: On home coumadin for a. fib; INR goal 2-3 INR 4.57 today 1- Hold coumadin 2- Repeat PT/INR in AM (6) Diabetes mellitus type 2 in obese Plan: Metformin held secondary to elevated creatinine. 1- Accu-Cheks before meals and at bedtime with sliding scale insulin 2- Consistent carb diet (7) CKD (chronic kidney disease), stage III Plan: Nephrotoxic medications discontinued. Will monitor closely. (8) HLD (hyperlipidemia) Qualifiers: Hyperlipidemia type: unspecified Qualified Code(s): E78.5 - Hyperlipidemia , unspecified Plan: Continue home medication: Simvastatin (9) Atrial fibrillation Qualifiers: Atrial fibrillation type: chronic Qualified Code(s): I48.2 - Chronic atrial fibrillation Is this a current diagnosis for this admission?: Yes Plan: Patient ventricular paced w/ AICD 1- Continue home medication: Amiodarone 2- Hold Coumadin for elevated INR today; follow PT/INR, will need to resume when <3 - Time Time Spent: 50 to 70 Minutes Medications reviewed and adjusted accordingly: Yes - Inpatient Certification Based on my medical assessment, after consideration of the patient's comorbidities, presenting symptoms, or acuity I expect that the services needed warrant INPATIENT care.: Yes I certify that my determination is in accordance with my understanding of Medicare's requirements for reasonable and necessary INPATIENT services [42 CFR 412.3e].: Yes Medical Necessity: Failure to Improve With Outpatient Therapy, Significant Comorbidiites Make Outpatient Treatment Too Risky, Need Close Monitoring Due to Risk of Patient Decompensation, Need For Continuous Telemetry Monitoring
--- NOTE | 2017-02-13 14:49 | RADIOLOGY REPORT (SQ) ---
EXAM DESCRIPTION: CT CHEST WITHOUT COMPLETED DATE/TIME: 02/13/2017 2:06 pm REASON FOR STUDY: shortness of breath COMPARISON: 07/09/2015 TECHNIQUE: CT scan performed of the chest without intravenous contrast. Images reviewed with lung, soft tissue and bone windows. Reconstructed coronal and sagittal MPR images reviewed. All images st ored on PACS. All CT scanners at this facility use dose modulation, iterative reconstruction, and/or weight based d osing when appropriate to reduce radiation dose to as low as reasonably achievable (ALARA). [facility]: Dose Right [facility]: CareDose [facility]: Dose Right [facility]: Teradose 4D [facility]: Smart ip.access RADIATION DOSE: Up-to-date CT equipment and radiation dose reduction techniques were employed. CTDIv ol: 14.4 mGy. DLP: 592 mGy-cm. mGy. LIMITATIONS: No technical limitations. FINDINGS: LUNGS AND PLEURA: Subsegmental airspace disease in the right lung and superior segment lef t lower lobe. Segmental airspace disease in the left upper lobe. Trace pleural effusions. HILAR AND MEDIASTINAL STRUCTURES: Mildly enlarged mediastinal nodes, the largest in the AP window abida suring about 2 cm. Bilateral hilar adenopathy difficult to further quantified without contrast. HEART AND VASCULAR STRUCTURES: Cardiomegaly. 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 Stable position of defibrillator. No pericardial effusion. UPPER ABDOMEN: Cholelithiasis. THYROID AND OTHER SOFT TISSUES: No masses. No adenopathy. BONES: Mixed sclerotic and lytic lesions in the thoracic spine. HARDWARE: None in the chest. OTHER: No other significant findings. IMPRESSION: 1. Bilateral airspace disease. This may be due to pneumonia. However presence of mediastinal adenop athy and bone metastasis suspicious for underlying malignancy either intra or extra thoracic. 2. Stable left ventricular pseudoaneurysm. TECHNICAL DOCUMENTATION: JOB ID: [id number] Quality ID # [id number]: Final reports with documentation of one or more dose reduction techniques (e.g., Au tomated exposure control, adjustment of the mA and/or kV according to patient size, use of iterative reconstruction technique) 2010 [employer]- All Rights Reserved
[2017-02-13] MEDS: ACETAMINOPHEN 325 MG TABLET PO PRN ×2 (15:22→22:13)
[2017-02-13 16:36] LABS: CREATINE KINASE MB 1.25 ng/mL (<4.55); TROPONIN I 0.073 ng/mL
[2017-02-13 17:02] LABS: ANION GAP 13 (5-19); BLOOD UREA NITROGEN 41 mg/dL (7-20); CALCIUM 9.1 mg/dL (8.4-10.2); CARBON DIOXIDE 25 mmol/L (22-30); CHLORIDE 104 mmol/L (98-107); CREATINE KINASE 28 U/L (55-170); GLUCOSE 108 mg/dL (75-110); SODIUM 142.4 mmol/L (137-145)
[2017-02-13 17:13] LABS: POTASSIUM 5.9 mmol/L (3.6-5.0)
--- NOTE | 2017-02-13 20:07 | PDOC CONSULTATION ---
Consultation Consult Date: 02/13/17 Attending physician:: AISHA ROWE Consult reason:: Shortness of breath, CHF History of Present Illness Admission Date/PCP: 02/13/17 12:01 Patient complains of: Shortness of breath History of Present Illness: DIEGO CHING is a 76 year old male with past medical history significant for CHF, DM 2, HTN, CKD 3, CAD, anemia, and ventricular paced with underlying atrial fibrillation rhythm. He presents to the ER today complaining of sudden onset shortness of breath began at 6 AM. He reports that he has had a decreased appetite and has been more fatigued for approximately a month and noticed increased shortness of breath with activity beginning approximately a week ago with some increase in severity this morning. He was seen in the ED last week for similar complaint and offered admission for cardiac workup which he denied. He is seen resting comfortably in bed while on BiPAP. He reports that he is feeling moderately improved as compared to this morning. He states that he is hungry and would like to eat. This history was reviewed and confirmed. Patient on repeated questioning denied any chest arm or neck discomfort. He denied any recent defibrillator shocks. Patient claims that he never had any defibrillator shocks since it was placed. Patient denied any sustained palpitations, syncope, near syncope. He has noted progressive gradual weakness. Past Medical History Cardiac Medical History: Reports: Atrial Fibrillation, Congestive Heart Failure - Systolic, Coronary Artery Disease, Myocardial Infarction, Hyperlipidema, Hypertension Denies: DVT, Pulmonary Embolism Pulmonary Medical History: Denies: Asthma, Chronic Obstructive Pulmonary Disease (COPD), Sleep Apnea Neurological Medical History: Denies: Hemorrhagic CVA, Ischemic CVA, Seizures Endocrine Medical History: Reports: Diabetes Mellitus Type 2 Denies: Diabetes Mellitus Type 1, Hyperthyroidism, Hypothyroidism Renal/ Medical History: Reports: Chronic Kidney Disease Malignancy Medical History: Reports: Skin Cancer GI Medical History: Reports: Gastroesophageal Reflux Disease - Mild Denies: Cirrhosis, Hepatitis Psychiatric Medical History: Reports: Depression - Mild Hematology: Reports: Anemia - Chronic Past Surgical History Past Surgical History: Reports: Coronary Artery Bypass Graft, Internal Defibrillator, Pacemaker Social History Information Source: Patient Lives with: Alone Smoking Status: Never Smoker Frequency of Alcohol Use: None Hx Recreational Drug Use: No Drugs: None Hx Prescription Drug Abuse: No - Advance Directive Resuscitation Status: Full Code Surrogate healthcare decision maker:: Patient's sons will be surrogate decision makers Family History Family History: CAD, DM, Hyperlipidemia, Hypertension Parental Family History Reviewed: Yes Children Family History Reviewed: Yes Sibling(s) Family History Reviewed.: Yes Medication/Allergy Home Medications: Amiodarone HCl [Cordarone 200 mg Tablet] 200 mg PO DAILY 02/13/17 Aspirin [Aspirin EC] 81 mg PO DAILY 02/13/17 Carvedilol 12.5 mg PO Q12 02/13/17 Digoxin 125 mcg PO DAILY 02/13/17 Furosemide [Lasix 40 mg Tablet] 40 mg PO Q12 02/13/17 Glimepiride 4 mg PO Q12 02/13/17 Metformin HCl 1,000 mg PO Q12 02/13/17 Potassium Chloride 20 meq PO DAILY 02/13/17 Simvastatin 20 mg PO QHS 02/13/17 Spironolactone 25 mg PO DAILY 02/13/17 Warfarin Sodium [Coumadin 5 mg Tablet] 5 mg PO DAILY 02/13/17 Allergies/Adverse Reactions: lisinopril Adverse Reaction (Severe, Verified 02/13/17 08:42) Syncope Review of Systems Review of Systems: Please see history of present illness and past medical history as wall. Constitutional: No fever or chills reported. General fatigue and tiredness noted. Head : No recent chronic headaches, recent head injury. Eyes: No recent eye pain, diplopia, redness, discharge, acute visual changes. Ears: No recent chronic ear pain, acute hearing loss, ear discharge. Oral cavity: No recent ulcerations, bleeding, oral cavity discomfort. Neck: No recent acute neck pain reported. Hematologic: No recent easy bruising or bleeding or hematologic malignancy reported. Lymphatic: No recent lymphatic malignancy, chronic lymphadenopathy reported yet Cardiovascular system review: See history of present illness. Respiratory system review: No recent chronic cough, hemoptysis, blood clots in the lungs reported. Marked increased shortness of breath on exertion Gastrointestinal system review: Negative for any recent acute or chronic abdominal pain, hematemesis, melena, recent change in bowel habits. Genitourinary system review: No recent acute or chronic hematuria, flank pain, UTI etc. reported. Skin system review: Negative for any recent abnormal bruising, no rash, no pruritus reported. Neurologic: No prior history of strokes, mini strokes, seizure disorder. Psychologic: No history of major psychosis or major depression reported. Musculoskeletal: Minor aches and pains reported. No acute joint swelling reported. Endocrine: No recent polyuria, polydipsia, recent heat or cold intolerance. Physical Exam Vital Signs: Temp Pulse Resp BP Pulse Ox 97.2 F 59 L 18 120/47 L 100 02/13/17 14:51 02/13/17 14:51 02/13/17 14:51 02/13/17 14:51 02/13/17 14:51 Intake & Output 02/12/17 02/13/17 02/14/17 06:59 06:59 06:59 Weight 83.8 kg Exam: GENERAL: well-nourished and in no acute distress. Alert and oriented x3 HEAD: Atraumatic, normocephalic. EYES: Pupils equal round and reactive to light, extraocular movements intact, sclera anicteric, conjunctiva are normal. ENT: TMs normal, nares patent, oropharynx clear without exudates. Moist mucous membranes. No oral ulcerations or bleeding gums noted NECK: supple without lymphadenopathy. Trachea is central. No cervical or axillary lymphadenopathy noted. Carotids are 2+, JVD 10 cm LUNGS: Respiration seems nonlabored, no significant accessory muscle action noted. Bibasilar fine crackles noted. No wheezing noted. No significant dullness noted on percussion. CHEST: Palpation of the chest wall shows no significant chest wall tenderness. No other significant abnormalities noted. HEART: [place] [employer], No PSH, 2/6 BLAS aortic area, 1/6 cobian systolic murmur mitral area, no rubs, no gallops. ABDOMEN: Soft, no significant tenderness appreciated, normoactive bowel sounds. No guarding, no rebound. No rigidity noted . No masses appreciated. EXTREMITIES: Pedal pulses are 1-2+, no calf tenderness noted. No clubbing or cyanosis.1+ pedal edema noted NEUROLOGICAL: Focused neurological exam showed no significant neurologic deficit. Normal speech, no focal weakness appreciated. PSYCH: Normal mood, normal affect. Judgment and insight within normal limits. SKIN: No significant ecchymosis, rash, ulcerations or signs of pruritus noted. MUSCULOSKELETAL EXAM: No significant joint swelling noted. Results Laboratory Results: 02/13/17 16:00 02/13/17 16:00 Sodium 142.4 Potassium 5.9 H Chloride 104 Carbon Dioxide 25 Anion Gap 13 BUN 41 H Creatinine 2.10 H Est GFR ( Amer) 37 L Est GFR (Non-Af Amer) 31 L Glucose 108 Calcium 9.1 02/13/17 02/13/17 16:00 16:00 Creatine Kinase 28 L CK-MB (CK-2) 1.25 Troponin I 0.073 EKG Comments: Predominantly AV paced rhythm. Impressions: Chest CT 02/13/17 00:00 IMPRESSION: 1. Bilateral airspace disease. This may be due to pneumonia. However presence of mediastinal adenopathy and bone metastasis suspicious for underlying malignancy either intra or extra thoracic. 2. Stable left ventricular pseudoaneurysm. Chest X-Ray 02/13/17 07:51 IMPRESSION: Pulmonary vascular prominence, mild interstitial edema, trace pleural effusions Stable moderate cardiomegaly, old sternotomy and CABG, left-sided pacemaker Assessment & Plan - Diagnosis (1) Acute on chronic combined systolic (congestive) and diastolic (congestive) heart failure Is this a current diagnosis for this admission?: Yes (2) Coronary artery disease Qualifiers: Coronary Disease-Associated Artery/Lesion type: [place] artery [place] vs. transplanted heart: [place] heart Associated angina: without angina Qualified Code(s): I25.10 - Atherosclerotic heart disease of [place] coronary artery without angina pectoris (3) Hypertension Qualifiers: Hypertension type: essential hypertension Qualified Code(s): I10 - Essential (primary) hypertension Is this a current diagnosis for this admission?: Yes (4) CKD (chronic kidney disease), stage III Is this a current diagnosis for this admission?: Yes (5) Diabetes mellitus type 2 in obese Is this a current diagnosis for this admission?: Yes (6) HLD (hyperlipidemia) Qualifiers: Hyperlipidemia type: unspecified Qualified Code(s): E78.5 - Hyperlipidemia , unspecified - Notes Notes: Agree with IV diuretics. Will institute therapy for CHF and cardiomyopathy gradually. Hyperkalemia and chronic renal failure complicating factor. Acute on chronic CHF, both systolic and diastolic: Review of previous records shows that patient was recently evaluated. He has a history of noncompliance with doctor's visit and possibly with also medications. Patient has severe systolic dysfunction along with diastolic dysfunction. At this point agree with IV diuretics. Will gradually optimized management of CHF and cardiomyopathy as allowed by his blood pressure. Patient does have a functional defibrillator. Patient educated in CHF management. Patient has significant dyspnea, agree with positive pressure noninvasive ventilation. 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 Creatinine been stable. Avoid any nephrotoxic agents, IV contrast agent dye etc. consider nephrology evaluation. Presence of chronic kidney disease is a prognostic factor. Diabetes: Recommend good control of blood sugar. However should avoid any hypoglycemia. Patient being expertly managed by primary care MGennaro CAD: Patient has CAD. Currently stable without any angina or angina equivalent symptoms. Discussed symptoms associated with unstable angina, acute coronary syndrome, myocardial infarction etc. patient to be educated in proper instruction for nitroglycerin use and proper use of emergency services. Aggressive risk factor modification advised. Hyperlipidemia: LDL goal is less than 70. Recommend statin therapy at least intermediate or high dose, of high potency status. Periodic lipid panel and liver panel is indicated. Patient to report any significant muscle discomfort or other side effects. Will continue to follow patients. Because of severe systolic dysfunction and currently class IV symptoms, overall prognosis is on the poor side. - Time Time Spent: 50 to 70 Minutes - CODE STATUS was discussed, patient remains full code. Surrogate decision-maker patient's son. Multiple medical problems were addressed. More than 50% of the time spent coordinating care, discussing management plans with involved caregivers. Management plans discussed with involved personnels. Medical decision making was of moderate to high complexity , patient's has multiple comorbidities. Medications reviewed and adjusted accordingly: Yes
[2017-02-13] MEDS: CARVEDILOL 12.5 MG TABLET PO SCH (21:19)
[2017-02-13] MEDS: SIMVASTATIN 10 MG TABLET PO SCH (21:19)
[2017-02-13] MEDS: FUROSEMIDE INJ/PF 40 MG/4 ML SDV IV SCH (21:20)
[2017-02-13] MEDS ORDERED: FAMOTIDINE 20 MG TABLET PO SCH (22:00)
[2017-02-13] MEDS ORDERED: (PENDING PHARMACY ID) (Simvastatin [Simvastatin] 20 MG) PO SCH (22:00)
[2017-02-13 23:43] LABS: CREATINE KINASE MB 1.45 ng/mL (<4.55); TROPONIN I 0.06 ng/mL
[2017-02-14 05:47] LABS: ABSOLUTE BASOPHILS # (AUTO) 0.1 10^3/uL (0.0-0.2); ABSOLUTE EOSINOPHILS # (AUTO) 0.6 10^3/uL (0.0-0.6); ABSOLUTE LYMPHOCYTES (AUTO) 1.8 10^3/uL (0.5-4.7); ABSOLUTE MONOCYTES (AUTO) 0.6 10^3/uL (0.1-1.4); ABSOLUTE NEUT (AUTO) 5.6 10^3/uL (1.7-8.2); BASOPHILS % (AUTO) 0.7 % (0-2); EOSINOPHILS % (AUTO) 7.1 % (0-6); HEMATOCRIT 22.3 % (37.9-51.0); HGB HCT DIFFERENCE 0.2; LYMPHOCYTES % (AUTO) 20.6 % (13-45); MEAN CORPUSCULAR HEMOGLOBIN 25.8 pg (27.0-33.4); MEAN CORPUSCULAR HGB CONC 33.5 g/dL (32.0-36.0); MEAN CORPUSCULAR VOLUME 77 fl (80-97); MONOCYTES % (AUTO) 6.5 % (3-13); RED BLOOD COUNT 2.89 10^6/uL (4.35-5.55); RED CELL DISTRIBUTION WIDTH 18.3 % (11.5-14.0); SEGMENTED NEUTROPHILS % (AUTO) 65.1 % (42-78); WHITE BLOOD COUNT 8.6 10^3/uL (4.0-10.5)
[2017-02-14 05:54] LABS: HEMOGLOBIN 7.5 g/dL (13.5-17.0)
[2017-02-14 05:55] LABS: ANION GAP 10 (5-19); BLOOD UREA NITROGEN 39 mg/dL (7-20); CALCIUM 8.5 mg/dL (8.4-10.2); CARBON DIOXIDE 26 mmol/L (22-30); CHLORIDE 104 mmol/L (98-107); CREATINE KINASE 23 U/L (55-170); CREATININE RESULT 2.08 mg/dL (0.52-1.25); GLUCOSE 220 mg/dL (75-110); MAGNESIUM 2.3 mg/dL (1.6-2.3); POTASSIUM 5.1 mmol/L (3.6-5.0); SODIUM 139.9 mmol/L (137-145)
[2017-02-14 05:57] LABS: CREATINE KINASE MB 1.35 ng/mL (<4.55)
[2017-02-14 06:00] LABS: TROPONIN I 0.045 ng/mL
[2017-02-14] MEDS: INSULIN LISPRO 100 UNIT/ML 3 ML VIAL SUBCUT PRN ×2 (07:36→16:49)
[2017-02-14 07:59] LABS: PROTHROMBIN TIME 52.3 SEC (11.4-15.4)
[2017-02-14] MEDS ORDERED: NORMAL SALINE 250 ML IV PRN (09:04)
[2017-02-14] MEDS ORDERED: PHYTONADIONE INJ 1 MG/0.5 ML DISP.SYRIN INJ ONE (10:00)
[2017-02-14] MEDS ORDERED: ASPIRIN 81 MG TABLET, ENT COATED PO SCH (10:00)
[2017-02-14] MEDS ORDERED: DIGOXIN 0.125 MG TABLET PO SCH (10:00)
[2017-02-14] MEDS ORDERED: PANTOPRAZOLE SODIUM 40 MG VIAL IV ONE (10:00)
[2017-02-14] MEDS ORDERED: PHYTONADIONE INJ 10 MG/1 ML AMPULE SUBCUT ONE (10:15)
[2017-02-14] MEDS ORDERED: PANTOPRAZOLE SODIUM 80 MG in NORMAL SALINE 100 ML IV ONE (11:00)
[2017-02-14 11:36] LABS: HEMATOCRIT 22.8 % (37.9-51.0); HGB HCT DIFFERENCE 0.3; MEAN CORPUSCULAR HEMOGLOBIN 25.8 pg (27.0-33.4); MEAN CORPUSCULAR HGB CONC 33.9 g/dL (32.0-36.0); MEAN CORPUSCULAR VOLUME 76 fl (80-97); RED BLOOD COUNT 2.99 10^6/uL (4.35-5.55); RED CELL DISTRIBUTION WIDTH 18.9 % (11.5-14.0); WHITE BLOOD COUNT 8.9 10^3/uL (4.0-10.5)
[2017-02-14 11:45] LABS: HEMOGLOBIN 7.7 g/dL (13.5-17.0)
[2017-02-14] MEDS: AMIODARONE HCL 200 MG TABLET PO SCH (11:50)
[2017-02-14] MEDS: FUROSEMIDE INJ/PF 40 MG/4 ML SDV IV SCH ×2 (11:51→21:43)
[2017-02-14] MEDS: CARVEDILOL 12.5 MG TABLET PO SCH (11:51)
[2017-02-14] MEDS: NORMAL SALINE 100 ML with PANTOPRAZOLE SODIUM 80 MG IV PRN ×4 (12:34→21:44)
[2017-02-14] MEDS ORDERED: FUROSEMIDE INJ/PF 20 MG/2 ML SDV IV ONE ×2 (12:45→14:36)
[2017-02-14] MEDS: ACETAMINOPHEN 325 MG TABLET PO PRN (14:43)
[2017-02-14] MEDS ORDERED: DEXTROSE 40% GEL 15 GM TUBE PO PRN ×2 (14:59)
[2017-02-14] MEDS ORDERED: DEXTROSE 50%-WATER 25 GM/50 ML DISP.SYRIN IV PRN ×2 (14:59)
[2017-02-14] MEDS ORDERED: GLUCAGON,HUMAN RECOMB 1 MG INJ SUBCUT PRN (14:59)
--- NOTE | 2017-02-14 15:09 | PDOC PROGRESS REPORT ---
Subjective Progress Note for:: 02/14/17 Subjective:: Patient is seen resting in bed comfortably while on BiPAP. He reports that his breathing has improved and that he actually feels quite comfortable this morning. He denies chest pain, palpitations, cough, orthopnea. He does report that he was off the BiPAP for very brief period of time this morning while eating breakfast and converse sitting with the nurse, however became short of breath during the conversation and required to be placed back on the BiPAP. Despite this, he feels that his respiratory status has improved significantly. He has no other complaints this morning and is quite surprised to hear that his INR remains elevated and that his morning lab work shows evidence of bleeding. During the discussion, he does relate to me that he has had "black stools for quite a while now." He denies hematemesis, hematochezia, anoop blood per rectum. He denies previous history of GI bleed. He denies abdominal pain, nausea, vomiting, diarrhea, constipation. He denies hematuria. He additionally denies recent trauma. Physical Exam Vital Signs: Temp Pulse Resp BP Pulse Ox 97.6 F 60 18 112/44 L 100 02/14/17 13:44 02/14/17 13:44 02/14/17 13:44 02/14/17 13:44 02/14/17 13:44 Intake & Output 02/13/17 02/14/17 02/15/17 06:59 06:59 06:59 Intake Total 620 118 Balance 620 118 Weight 84.9 kg General appearance: PRESENT: no acute distress, cooperative, well-developed, well-nourished Head exam: PRESENT: atraumatic, normocephalic Eye exam: PRESENT: conjunctiva pink, EOMI, PERRLA. ABSENT: scleral icterus Ear exam: PRESENT: normal external ear exam Mouth exam: PRESENT: tongue midline. ABSENT: moist Teeth exam: PRESENT: poor dentation Neck exam: PRESENT: full ROM. ABSENT: carotid bruit, JVD, lymphadenopathy, thyromegaly Respiratory exam: PRESENT: clear to auscultation [place], decreased breath sounds - bibasilar, symmetrical, unlabored, other - on continuous BiPAP. ABSENT: rales, rhonchi, wheezes Cardiovascular exam: PRESENT: RRR. ABSENT: diastolic murmur, rubs, systolic murmur Pulses: PRESENT: normal dorsalis pedis pul Vascular exam: PRESENT: normal capillary refill GI/Abdominal exam: PRESENT: hernia - umbilical, normal bowel sounds, soft. ABSENT: ascites, distended, guarding, mass, organolmegaly, rebound, tenderness Rectal exam: PRESENT: black stool - per pt; guiac pending Extremities exam: PRESENT: full ROM. ABSENT: calf tenderness, clubbing, pedal edema Musculoskeletal exam: PRESENT: normal inspection Neurological exam: PRESENT: alert, awake, oriented to person, oriented to place , oriented to time, oriented to situation, CN II-XII grossly intact. ABSENT: motor sensory deficit Psychiatric exam: PRESENT: appropriate affect, normal mood. ABSENT: homicidal ideation, suicidal ideation Skin exam: PRESENT: dry, intact, pallor, warm. ABSENT: cyanosis, jaundice, rash Results Laboratory Results: 02/14/17 10:36 02/14/17 05:07 02/13/17 02/14/17 02/14/17 16:00 05:07 05:07 WBC 8.6 RBC 2.89 L Hgb 7.5 L Hct 22.3 L MCV 77 L MCH 25.8 L MCHC 33.5 RDW 18.3 H Plt Count 246 Seg Neutrophils % 65.1 Lymphocytes % 20.6 Monocytes % 6.5 Eosinophils % 7.1 H Basophils % 0.7 Absolute Neutrophils 5.6 Absolute Lymphocytes 1.8 Absolute Monocytes 0.6 Absolute Eosinophils 0.6 Absolute Basophils 0.1 Sodium 142.4 139.9 Potassium 5.9 H 5.1 H Chloride 104 104 Carbon Dioxide 25 26 Anion Gap 13 10 BUN 41 H 39 H Creatinine 2.10 H 2.08 H Est GFR ( Amer) 37 L 38 L Est GFR (Non-Af Amer) 31 L 31 L Glucose 108 220 H Calcium 9.1 8.5 Magnesium 2.3 Blood Type Antibody Screen 02/14/17 02/14/17 06:37 10:36 WBC 8.9 RBC 2.99 L Hgb 7.7 L Hct 22.8 L MCV 76 L MCH 25.8 L MCHC 33.9 RDW 18.9 H Plt Count 279 Seg Neutrophils % Lymphocytes % Monocytes % Eosinophils % Basophils % Absolute Neutrophils Absolute Lymphocytes Absolute Monocytes Absolute Eosinophils Absolute Basophils Sodium Potassium Chloride Carbon Dioxide Anion Gap BUN Creatinine Est GFR ( Amer) Est GFR (Non-Af Amer) Glucose Calcium Magnesium Blood Type O POSITIVE Antibody Screen NEGATIVE 02/13/17 02/13/17 02/13/17 16:00 16:00 23:00 Creatine Kinase 28 L 28 L CK-MB (CK-2) 1.25 Troponin I 0.073 NT-Pro-B Natriuret Pep 02/13/17 02/14/17 02/14/17 23:00 05:07 05:07 Creatine Kinase 23 L CK-MB (CK-2) 1.45 Troponin I 0.060 NT-Pro-B Natriuret Pep 7340 H 02/14/17 05:07 Creatine Kinase CK-MB (CK-2) 1.35 Troponin I 0.045 NT-Pro-B Natriuret Pep Impressions: Chest CT 02/13/17 00:00 IMPRESSION: 1. Bilateral airspace disease. This may be due to pneumonia. However presence of mediastinal adenopathy and bone metastasis suspicious for underlying malignancy either intra or extra thoracic. 2. Stable left ventricular pseudoaneurysm. Chest X-Ray 02/13/17 07:51 IMPRESSION: Pulmonary vascular prominence, mild interstitial edema, trace pleural effusions Stable moderate cardiomegaly, old sternotomy and CABG, left-sided pacemaker Assessment & Plan - Diagnosis (1) Acute on chronic systolic (congestive) heart failure Is this a current diagnosis for this admission?: Yes Plan: A/C Heart Failure with reduced function. Previous echo w/ EF 25-30% Current episode likely a combination of dietary/medication compliance issues exacerbated by GI bleed/volume deficit/hypoxemia. 1- Admit to IMCU 2- Will diurese with IV Lasix; monitor closely for worsening hypotension 3- Continue home medication: Coreg and Digoxin 4- Cardiac enzymes reassuring 5- Will obtain updated echocardiogram; pending. 6- Appreciate cardiology consultation (2) Acute blood loss anemia Is this a current diagnosis for this admission?: Yes Plan: 2/2 Presumed GI bleed in the setting of anticoagulation r/t warfarin Pt reports that he has noted melena stools "for a long while now." He reports to nursing that he has recently been using ASA 6-7 times daily for pain. He denies hematemesis or anoop blood or rectum. 1- Protonix bolus and gtt x 72 hr 2- Appreciate surgical consultation 3- Guiac stool; pending 4- Avoid all NSAIDs 5- NPO (3) GI bleed Qualifiers: GI bleed type/associated pathology: melena Qualified Code(s): K92.1 - Melena Is this a current diagnosis for this admission?: Yes Plan: As above (4) Hypoxemia Plan: Likely 2/2 CHF exacerbation 1- BiPAP as needed 3- Plan as above (5) Hyperkalemia Is this a current diagnosis for this admission?: Yes Plan: Improved. 6.1-->5.9-->5.1 1- Hold home KCL 2- On telemetry 3- Monitor closely (6) GERD (gastroesophageal reflux disease) Qualifiers: Esophagitis presence: without esophagitis Qualified Code(s): K21.9 - Gastro -esophageal reflux disease without esophagitis Is this a current diagnosis for this admission?: Yes Plan: 1- Continue PPI as above 2- Counselled on avoidance of NSAIDs/ASA, especially in the setting of warfarin (7) Anticoagulated Is this a current diagnosis for this admission?: Yes Plan: On home coumadin for a. fib; INR goal 2-3 INR 4.57-->5.52 1- Hold coumadin 2- Reversal today 2/2 ABLA; FFP and Vitamin K 3- Repeat PT/INR in AM (8) Diabetes mellitus type 2 in obese Is this a current diagnosis for this admission?: Yes Plan: Metformin held secondary to elevated creatinine. 1- Accu-Cheks before meals and at bedtime with sliding scale insulin 2- NPO currently (9) CKD (chronic kidney disease), stage III Is this a current diagnosis for this admission?: Yes Plan: Nephrotoxic medications discontinued. Will monitor closely. Creatinine stable (2.06-->2.10-->2.08) (10) HLD (hyperlipidemia) Qualifiers: Hyperlipidemia type: unspecified Qualified Code(s): E78.5 - Hyperlipidemia , unspecified Plan: Continue home medication: Simvastatin (11) Atrial fibrillation Qualifiers: Atrial fibrillation type: chronic Qualified Code(s): I48.2 - Chronic atrial fibrillation Is this a current diagnosis for this admission?: Yes Plan: Patient ventricular paced w/ AICD 1- Continue home medication: Amiodarone 2- Holding Coumadin (12) Anemia, chronic disease Is this a current diagnosis for this admission?: Yes - Time Time Spent with patient: 35 or more minutes Medications reviewed and adjusted accordingly: Yes
[2017-02-14] MEDS ORDERED: FUROSEMIDE INJ/PF 20 MG/2 ML SDV ONE (18:35)
--- NOTE | 2017-02-14 19:09 | PDOC PROGRESS REPORT ---
Subjective Progress Note for:: 02/14/17 Subjective:: Patient seems to be doing better with gradual improvement. Pt is denying any chest arm or neck discomfort. Patient denying any PND, orthopnea. Patient denied any sustained palpitations, dizziness, syncope, near syncope. Patient denying any fever chills. Patient denying any other significant discomfort. Patient is maintaining AV paced rhythm Review of systems: Rest review of systems negative. Medications: Medications have been reviewed. Physical Exam Vital Signs: Temp Pulse Resp BP Pulse Ox 97.4 F 61 16 109/45 L 100 02/14/17 18:50 02/14/17 18:50 02/14/17 18:50 02/14/17 18:50 02/14/17 18:50 Intake & Output 02/13/17 02/14/17 02/15/17 06:59 06:59 06:59 Intake Total 620 1324 Balance 620 1324 Weight 84.9 kg Exam: GENERAL: well-nourished and in no acute distress. Alert and oriented x3 HEAD: Atraumatic, normocephalic. EYES: Pupils equal round and reactive to light, extraocular movements intact, sclera anicteric, conjunctiva are normal. ENT: TMs normal, nares patent, oropharynx clear without exudates. Moist mucous membranes. No oral ulcerations or bleeding gums noted NECK: supple without lymphadenopathy. Trachea is central. No cervical or axillary lymphadenopathy noted. Carotids are 2+, JVD WNL LUNGS: Respiration seems nonlabored, no significant accessory muscle action noted. Bibasilar fine crackles noted. No significant dullness noted. CHEST: Palpation of the chest wall shows no significant chest wall tenderness. No other significant abnormalities noted. 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 ABDOMEN: Soft, no significant tenderness appreciated, normoactive bowel sounds. No guarding, no rebound. No rigidity noted . No masses appreciated. EXTREMITIES: Pedal pulses are 1-2+, no calf tenderness noted. No clubbing or cyanosis.1+ pedal edema noted NEUROLOGICAL: Focused neurological exam showed no significant neurologic deficit. Normal speech, no focal weakness appreciated. PSYCH: Normal mood, normal affect. Judgment and insight within normal limits. SKIN: No significant ecchymosis, rash, ulcerations or signs of pruritus noted. MUSCULOSKELETAL EXAM: No significant joint swelling noted. Results Laboratory Results: 02/14/17 10:36 02/14/17 05:07 02/14/17 02/14/17 02/14/17 05:07 05:07 06:37 WBC 8.6 RBC 2.89 L Hgb 7.5 L Hct 22.3 L MCV 77 L MCH 25.8 L MCHC 33.5 RDW 18.3 H Plt Count 246 Seg Neutrophils % 65.1 Lymphocytes % 20.6 Monocytes % 6.5 Eosinophils % 7.1 H Basophils % 0.7 Absolute Neutrophils 5.6 Absolute Lymphocytes 1.8 Absolute Monocytes 0.6 Absolute Eosinophils 0.6 Absolute Basophils 0.1 Sodium 139.9 Potassium 5.1 H Chloride 104 Carbon Dioxide 26 Anion Gap 10 BUN 39 H Creatinine 2.08 H Est GFR ( Amer) 38 L Est GFR (Non-Af Amer) 31 L Glucose 220 H Calcium 8.5 Magnesium 2.3 Blood Type O POSITIVE Antibody Screen NEGATIVE 02/14/17 10:36 WBC 8.9 RBC 2.99 L Hgb 7.7 L Hct 22.8 L MCV 76 L MCH 25.8 L MCHC 33.9 RDW 18.9 H Plt Count 279 Seg Neutrophils % Lymphocytes % Monocytes % Eosinophils % Basophils % Absolute Neutrophils Absolute Lymphocytes Absolute Monocytes Absolute Eosinophils Absolute Basophils Sodium Potassium Chloride Carbon Dioxide Anion Gap BUN Creatinine Est GFR ( Amer) Est GFR (Non-Af Amer) Glucose Calcium Magnesium Blood Type Antibody Screen 02/13/17 02/13/17 02/13/17 16:00 16:00 23:00 Creatine Kinase 28 L 28 L CK-MB (CK-2) 1.25 Troponin I 0.073 NT-Pro-B Natriuret Pep 02/13/17 02/14/17 02/14/17 23:00 05:07 05:07 Creatine Kinase 23 L CK-MB (CK-2) 1.45 Troponin I 0.060 NT-Pro-B Natriuret Pep 7340 H 02/14/17 05:07 Creatine Kinase CK-MB (CK-2) 1.35 Troponin I 0.045 NT-Pro-B Natriuret Pep EKG Comments: Telemetry strip shows AV paced rhythm Impressions: Chest CT 02/13/17 00:00 IMPRESSION: 1. Bilateral airspace disease. This may be due to pneumonia. However presence of mediastinal adenopathy and bone metastasis suspicious for underlying malignancy either intra or extra thoracic. 2. Stable left ventricular pseudoaneurysm. Chest X-Ray 02/13/17 07:51 IMPRESSION: Pulmonary vascular prominence, mild interstitial edema, trace pleural effusions Stable moderate cardiomegaly, old sternotomy and CABG, left-sided pacemaker Assessment & Plan - Diagnosis (1) Acute on chronic combined systolic (congestive) and diastolic (congestive) heart failure Is this a current diagnosis for this admission?: Yes (2) Coronary artery disease Qualifiers: Coronary Disease-Associated Artery/Lesion type: [place] artery [place] vs. transplanted heart: [place] heart Associated angina: without angina Qualified Code(s): I25.10 - Atherosclerotic heart disease of [place] coronary artery without angina pectoris (3) Hypertension Qualifiers: Hypertension type: essential hypertension Qualified Code(s): I10 - Essential (primary) hypertension Is this a current diagnosis for this admission?: Yes (4) CKD (chronic kidney disease), stage III Is this a current diagnosis for this admission?: Yes (5) Diabetes mellitus type 2 in obese Is this a current diagnosis for this admission?: Yes (6) HLD (hyperlipidemia) Qualifiers: Hyperlipidemia type: unspecified Qualified Code(s): E78.5 - Hyperlipidemia , unspecified - Notes Notes: Patient received 1 unit of blood transfusion. Recommend hemoglobin be kept above 8-9 g percent in view of history of CAD and CHF. Acute on chronic CHF, both systolic and diastolic: Review of previous records shows that patient was recently evaluated. He has a history of noncompliance with doctor's visit and possibly with also medications. Patient has severe systolic dysfunction along with diastolic dysfunction. Continue with IV diuretics. Will gradually optimized management of CHF and cardiomyopathy as allowed by his blood pressure. Patient does have a functional defibrillator. Patient educated in CHF management. Patient has significant dyspnea, agree with positive pressure noninvasive ventilation. Patient does not have a definite diagnosis of sleep apnea and would benefit from testing for it as an outpatient Chronic kidney disease: Patient seems to have chronic kidney disease stage 3. Creatinine been stable. Avoid any nephrotoxic agents, IV contrast agent dye etc. consider nephrology evaluation. Presence of chronic kidney disease is a prognostic factor. Diabetes: Recommend good control of blood sugar. However should avoid any hypoglycemia. Patient being expertly managed by primary care [place] CAD: Patient has CAD. Currently stable without any angina or angina equivalent symptoms. Discussed symptoms associated with unstable angina, acute coronary syndrome, myocardial infarction etc. Hyperlipidemia: LDL goal is less than 70. Recommend statin therapy at least intermediate or high dose, of high potency status. Periodic lipid panel and liver panel is indicated. Patient to report any significant muscle discomfort or other side effects. Will continue to follow patients. Because of severe systolic dysfunction and currently class IV symptoms, overall prognosis is on the poor side. Patient received 1 unit of blood transfusion because of GI bleed. Have recommended that hemoglobin be maintained above 8 g percent if possible. - Time Time with patient: Greater than 35 minutes - CODE STATUS was discussed, patient remains full code. Surrogate decision-maker unchanged. Multiple medical problems were addressed. More than 50% of the time spent coordinating care, discussing management plans with involved caregivers. Management plans discussed with involved personnels. Medical decision making was of moderate to high complexity, patient's has multiple comorbidities. Medications reviewed and adjusted accordingly: Yes
[2017-02-14] MEDS: SIMVASTATIN 10 MG TABLET PO SCH (21:42)
--- NOTE | 2017-02-15 00:38 | CONSULTATION REPORT E ---
Consultation Report NAME: DIEGO CHING : 1940 AGE: 76Y DATE: 02/14/2017 303 A TO: MIKE SEGOVIA M.D. HISTORY OF PRESENT ILLNESS: This is a 76-year-old male with past history of CHF, diabetes mellitus type 2, hypertension, chronic kidney disease, coronary artery disease, anemia, and ventricular pacing underlying atrial fibrillation rhythm. The patient has been on Coumadin for atrial fibrillation. His PT is elevated to 52 seconds and INR to 5.52. The son also mentions that the patient takes a lot of aspirin and Tylenol. On admission, his hemoglobin was 8.9, and this morning that was 7.5 to 7.7. The patient has been complaining of some lightheadedness today. He claims that he would have on and off lightheadedness and dizziness for the past 40 years. At any rate, he had a bowel movement yesterday and today, but he did not see his stool or any color. There is no hemoptysis. He is getting a BiPAP treatment right now. PAST MEDICAL HISTORY: CARDIAC MEDICAL HISTORY: Reports atrial fibrillation; congestive heart failure, systolic; coronary artery disease; myocardial infarction; hyperlipidemia; and hypertension. PULMONARY MEDICAL HISTORY: Denies asthma or chronic obstructive pulmonary disease. NEUROLOGIC HISTORY: Denies CVA or seizures. ENDOCRINE MEDICAL HISTORY: Reports diabetes mellitus type 2. RENAL/GENITOURINARY HISTORY: Chronic kidney disease. MALIGNANCY MEDICAL HISTORY: He reports skin cancer. GASTROENTEROLOGY MEDICAL HISTORY: He reports gastroesophageal reflux disease that is mild. PSYCHIATRIC MEDICAL HISTORY: Reports depression - Mild. HEMATOLOGY: Reports anemia as chronic. PAST SURGICAL HISTORY: 1. Reports coronary artery bypass graft. 2. Pacemaker with defibrillator. SOCIAL HISTORY: Denies smoking. Denies alcohol use. Denies recreational drug use or prescription drug abuse. FAMILY HISTORY: Positive for diabetes mellitus, coronary artery disease, hyperlipidemia, and hypertension. PARENTAL FAMILY HISTORY: Father at age 76 due to CVA and diabetes mellitus type 2. Mother age 67 due to PR. [place] FAMILY HISTORY: Reviewed. He has a brother at age 76 due to PR. CHILDREN FAMILY HISTORY: Reviewed. Noncontributory. MEDICATION/ALLERGY: HOME MEDICATIONS: 1. Amiodarone. 2. Aspirin 81 mg daily. 3. Carvedilol 12.5 mg q. 12. 4. Digoxin 125 mcg daily. 5. Furosemide 40 mg p.o. q. 12 hours. 6. Glimepiride 4 mg p.o. q. 12 hours. 7. Metformin 1000 mg p.o. q. 12 hours. 8. Potassium chloride 20 mEq p.o. daily. 9. Simvastatin 20 mg p.o. at bedtime. 10. Spironolactone 25 mg p.o. daily. 11. Warfarin sodium 5 mg p.o. daily. ALLERGIES: LISINOPRIL, with adverse reaction in the form of syncope. REVIEW OF SYSTEMS: CONSTITUTIONAL: Present fatigue, weakness. CARDIOVASCULAR: Present dyspnea on exertion, orthopnea. RESPIRATORY: Present dyspnea. GASTROINTESTINAL: Absent abdominal pains, diarrhea, nausea, or vomiting. He did have some loose stools in the past week but no diarrhea. He claims he rarely has constipation. MUSCULOSKELETAL: Absent back pains or joint swelling. INTEGUMENTARY: Present diaphoresis. Absent erythema/rash. NEUROLOGIC: Absent syncopal episode. Admits having some lightheadedness and dizziness. PSYCHIATRIC: Present depression. ENDOCRINE: Absent polydipsia/polyuria. PHYSICAL EXAMINATION: VITAL SIGNS: Blood pressure 98.2, respiration 18/min, BP 108/55, pulse ox of 99%. GENERAL APPEARANCE: Cooperative, mild distress, obese, well developed. HEAD EXAM: Atraumatic, normocephalic. EYE EXAM: Conjunctivae pink. EOMI, PERRLA. EAR EXAM: Normal external ear exam. MOUTH EXAM: Moist. Tongue midline. Teeth Exam: Present poor dentition. NECK EXAM: Present full range of motion. RESPIRATORY EXAM: Decreased breath sounds throughout. Currently requiring BiPAP. CARDIOVASCULAR: Present regular sinus rhythm. VASCULAR EXAM: Normal capillary refill. GASTROINTESTINAL/ABDOMINAL EXAM: Umbilical hernia. Nontender. Normal bowel sounds. Abdomen is soft. RECTAL EXAM: Deferred. MUSCULOSKELETAL EXAM: Normal inspection. Absent tenderness. NEUROLOGIC EXAM: Present awake, alert, and oriented x3. PSYCHIATRIC EXAM: Appropriate affect and normal mood. SKIN EXAM: Dry, intact. Color normal. Warm. IMAGING STUDIES: Chest x-ray 02/13/17 showed pulmonary vascular prominence, mild interstitial edema, trace pleural effusions; stable, moderate cardiomegaly; old sternotomy and coronary artery bypass graft; left-sided pacemaker. Chest x-ray on admission showed pulmonary vascular, mild interstitial edema, and moderate cardiomegaly. CT scan of the chest showed pneumonia, mediastinal adenopathy, and bone mets suspicious for underlying malignancy. LABORATORY DATA: His labs showed a hemoglobin 02/13/17 was 8.9, on 02/14 hemoglobin decreased to 7.5 and to 7.7. The patient had a unit of packed cells; awaiting repeat blood work. Platelets normal 279. Coagulation showed a PT of 52 seconds, an INR of 5.52, which is a little bit more prolonged for this patient with atrial fib history, but at the present rate of sinus rhythm. Lytes are normal, though potassium slightly elevated at 5.1 BUN is 39, creatinine 2.08, with a glucose 214. His BNP was 7340. IMPRESSION: 1. Anemia, chronic. 2. Decrease in hemoglobin, not necessarily related to bleeding, but maybe more due to hemodilution. Patient has some mild symptoms of lightheadedness and dizziness, though he claims he has this off and on for the past 40 years. His blood pressure also a little bit on the low side. 3. Congestive heart failure. 4. Hyperkalemia. 5. Chronic kidney disease, stage III. 6. Hyperlipidemia. RECOMMENDATION: 1. Hold Coumadin for now until the INR goes down to around 2.5. There is still a questionable need for the Coumadin because patient is now in normal sinus rhythm, though I will leave it up to the signals analyst as far as maintaining him on Coumadin. 2. We do not have any gastroenterologists personal security specialist at this time, and I do not do endoscopies at the present time. However, if patient does show significant active bleeding, then the option will be to do a selective mesenteric CT angio. Unfortunately, with his renal failure, I do not think it is safe to do a contrast study at this time. Therefore, if he does have obvious active bleeding, the best place for him will be to be transferred to a tertiary facility where they have a technical writer personal security specialist. In the meantime, I will follow him with you in the hospital. He appears to be fairly stable at this time. DICTATING PHYSICIAN: MIKE SEGOVIA M.D. [id number] PHY#: [id number] ID: [id number] JOB#: [id number] ACCT: [id number] cc:MIKE SEGOVIA M.D. >
[2017-02-15 05:27] LABS: HEMATOCRIT 28.8 % (37.9-51.0); HGB HCT DIFFERENCE 0.6; MEAN CORPUSCULAR HEMOGLOBIN 26.5 pg (27.0-33.4); MEAN CORPUSCULAR HGB CONC 34.1 g/dL (32.0-36.0); MEAN CORPUSCULAR VOLUME 78 fl (80-97); RED BLOOD COUNT 3.71 10^6/uL (4.35-5.55); RED CELL DISTRIBUTION WIDTH 19.1 % (11.5-14.0); WHITE BLOOD COUNT 8.6 10^3/uL (4.0-10.5)
[2017-02-15 05:29] LABS: HEMOGLOBIN 9.8 g/dL (13.5-17.0)
[2017-02-15] MEDS: NORMAL SALINE 100 ML with PANTOPRAZOLE SODIUM 80 MG IV PRN ×2 (05:46)
[2017-02-15 05:47] LABS: ALANINE AMINOTRANSFERASE 33 U/L (21-72); ALBUMIN 2.9 g/dL (3.5-5.0); ALKALINE PHOSPHATASE 478 U/L (38-126); ASPARTATE AMINO TRANSFERASE 22 U/L (17-59); BILIRUBIN,DIRECT 0.4 mg/dL (0.0-0.4); BILIRUBIN,TOTAL 1.1 mg/dL (0.2-1.3); TOTAL PROTEIN 5.4 g/dL (6.3-8.2)
[2017-02-15 08:19] LABS: ANION GAP 12 (5-19); BLOOD UREA NITROGEN 33 mg/dL (7-20); CALCIUM 8.9 mg/dL (8.4-10.2); CARBON DIOXIDE 26 mmol/L (22-30); CHLORIDE 103 mmol/L (98-107); CREATININE RESULT 1.71 mg/dL (0.52-1.25); GLUCOSE 77 mg/dL (75-110); POTASSIUM 4.1 mmol/L (3.6-5.0); SODIUM 140.8 mmol/L (137-145)
[2017-02-15] MEDS: AMIODARONE HCL 200 MG TABLET PO SCH (09:49)
[2017-02-15] MEDS: FUROSEMIDE INJ/PF 40 MG/4 ML SDV IV SCH (09:49)
[2017-02-15 12:24] VITALS: BP 117/50
--- NOTE | 2017-02-15 12:30 | RADIOLOGY REPORT (SQ) ---
EXAM DESCRIPTION: CHEST SINGLE VIEW COMPLETED DATE/TIME: 02/15/2017 12:01 pm REASON FOR STUDY: dyspnea COMPARISON: CT angio chest 07/09/2015, 02/13/2017 Chest films 01/04/2017, 02/10/2017, 02/13/2017 EXAM PARAMETERS: NUMBER OF VIEWS: One view. TECHNIQUE: Single frontal radiographic view of the chest acquired. RADIATION DOSE: NA LIMITATIONS: None. FINDINGS: LUNGS AND PLEURA: Patchy right perihilar airspace disease with increased interstitial dami ings in the mid and lower lung. Differential is asymmetric edema versus pneumonia. No gross left pulmonary infiltrates. No pleural effusions or pneumothorax. MEDIASTINUM AND HILAR STRUCTURES: No masses. Contour normal. HEART AND VASCULAR STRUCTURES: Mild cardiomegaly, old CABG BONES: Sake sclerosis in the ribs and left scapula, question bony metastatic disease from prostate ca ncer HARDWARE: Left-sided dual lead pacemaker OTHER: No other significant finding. IMPRESSION: Asymmetric alveolar and interstitial infiltrates on the right, similar compared to 2016 TECHNICAL DOCUMENTATION: JOB ID: [id number]
--- NOTE | 2017-02-15 13:54 | PDOC TRANSFER SUMMARY ---
General Admission Date/PCP: 02/13/17 12:01 Resuscitation Status: Full Code - Transfer Diagnosis (1) Acute on chronic systolic (congestive) heart failure Is this a current diagnosis for this admission?: Yes Diagnosis Summary: Pt with A/C Heart failure with reduced function. Echocardiogram at previous admission demonstrated EF 25-35%. Placed on BiPAP and volume replaced w/ 2 units PRBC. Did receive gentle diuresis with IV Lasix. (2) Acute blood loss anemia Is this a current diagnosis for this admission?: Yes Diagnosis Summary: Presumed 2/2 GI bleed in setting of Warfarin anticoagulation and regular ASA use. Pt reports melena, but no stools while inpatient. Revieved 2 units PRBC yesterday. Hgb 7.5 --> 9.8 (3) GI bleed Is this a current diagnosis for this admission?: Yes Diagnosis Summary: Presumed GI Bleed for report of melena in the setting of Coumadin anticoagulation and NSAID/ASA use. Surgical consultation recommended f/u endoscopy, which unfortunately is not available. Spoke w/ Dr. Beal at [facility] who agrees to accept patient for continued care. (4) Hypoxemia Diagnosis Summary: Improving. Pt remains on BiPAP qHS and prn. He does tolerate supplemental oxygen via NC for short periods of time. (5) Hyperkalemia Is this a current diagnosis for this admission?: Yes Diagnosis Summary: Resolved after kayexalate. (6) GERD (gastroesophageal reflux disease) Is this a current diagnosis for this admission?: Yes Diagnosis Summary: Currently on Protonix drip. (7) Anticoagulated Is this a current diagnosis for this admission?: Yes Diagnosis Summary: INR 4.57-->5.52; reversed 2/2 active bleeding. Today, INR 1.80 after received 2 units FFP and vitamin k. (8) Diabetes mellitus type 2 in obese Is this a current diagnosis for this admission?: Yes Diagnosis Summary: Oral medications held. Monitoring and covered with SSI. (9) CKD (chronic kidney disease), stage III Is this a current diagnosis for this admission?: Yes Diagnosis Summary: A/C CKD3. Creatinine improved (2.08-->1.71) with volume replacement (PRBC; pt did not receive IVF otherwise) (11) Atrial fibrillation Is this a current diagnosis for this admission?: Yes Diagnosis Summary: Ventricular paced w/ underlying a. fib. Coumadin held 2/2 bleeding. Continued on home medications Amiodarone, carvedilol, and digoxin. (12) Anemia, chronic disease Is this a current diagnosis for this admission?: Yes - Transfer Medications Home Medications: Amiodarone HCl [Cordarone 200 mg Tablet] 200 mg PO DAILY 02/13/17 Aspirin [Aspirin EC] 81 mg PO DAILY 02/13/17 Carvedilol 12.5 mg PO Q12 02/13/17 Digoxin 125 mcg PO DAILY 02/13/17 Furosemide [Lasix 40 mg Tablet] 40 mg PO Q12 02/13/17 Glimepiride 4 mg PO Q12 02/13/17 Metformin HCl 1,000 mg PO Q12 02/13/17 Potassium Chloride 20 meq PO DAILY 02/13/17 Simvastatin 20 mg PO QHS 02/13/17 Spironolactone 25 mg PO DAILY 02/13/17 Warfarin Sodium [Coumadin 5 mg Tablet] 5 mg PO DAILY 02/13/17 Transfer Medications: Current Medications Acetaminophen (Tylenol 325 Mg Tablet) 650 mg PO Q4HP PRN PRN Reason: pain or temp greater than 101F Stop: 03/15/17 12:00 Last Admin: 02/14/17 14:43 Dose: 650 mg Amiodarone HCl (Cordarone 200 Mg Tablet) 200 mg PO DAILY CORNEL Stop: 03/16/17 09:59 Last Admin: 02/15/17 09:49 Dose: 200 mg Carvedilol (Coreg 12.5 Mg Tablet) 12.5 mg PO Q12 CORNEL Stop: 03/15/17 21:59 Last Admin: 02/14/17 11:51 Dose: 12.5 mg Dextrose (Dextrose Inj 50% Syringe (25 Gm/50 Ml)) 12.5 gm IV PRN PRN; Protocol PRN Reason: FOR BG 50-69 IN ALERT PATIENT Stop: 03/15/17 12:12 Dextrose (Dextrose Inj 50% Syringe (25 Gm/50 Ml)) 25 gm IV PRN PRN PRN Reason: Protocol Stop: 03/15/17 12:12 Digoxin (Lanoxin 0.125 Mg Tablet) 0.125 mg PO DAILY CORNEL Stop: 03/16/17 09:59 Last Admin: 02/14/17 11:50 Dose: 0.125 mg Furosemide (Lasix Inj/Pf 40 Mg/4 Ml Sdv) 40 mg IV Q12 CORNEL Stop: 03/15/17 21:59 Last Admin: 02/15/17 09:49 Dose: 40 mg Glucagon (Glucagen Inj 1 Mg Vial) 1 mg IM PRN PRN; Protocol PRN Reason: Evaluate for BG < 70 Stop: 03/15/17 12:12 Glucose (Glutose 40% Gel 15 Gm Tube) 15 gm PO PRN PRN; Protocol PRN Reason: FOR BG 50-69 IN ALERT PATIENT Stop: 03/15/17 12:12 Glucose (Glutose 40% Gel 15 Gm Tube) 30 gm PO PRN PRN; Protocol PRN Reason: FOR BG < 50 IN ALERT PATIENT Stop: 03/15/17 12:12 Pantoprazole Sodium 80 mg/ (Sodium Chloride) 100 mls @ 10 mls/hr IV CONTINUOUS PRN PRN Reason: THIS MED IS NOT "PRN" Stop: 02/17/17 09:49 Last Admin: 02/15/17 05:46 Dose: 80 mg Insulin Human Lispro (Humalog Insulin 100 Unit/1 Ml 3 Ml Vial) 0 - 12 unit SUBCUT ACHSP PRN PRN Reason: Protocol Stop: 03/15/17 12:12 Last Admin: 02/14/17 16:49 Dose: 4 unit Ondansetron HCl (Zofran Inj/Pf 4 Mg/2 Ml Sdv) 4 mg IV Q6HP PRN PRN Reason: nausea/vomiting Stop: 03/15/17 12:00 Simvastatin (Zocor 10 Mg Tablet) 20 mg PO QHS CORNEL Stop: 03/15/17 21:59 Last Admin: 02/14/17 21:42 Dose: 20 mg Sodium Chloride (Saline Flush 2.5 Ml Monoject Prefil Syrin) 2.5 ml IV Q8 CORNEL Stop: 03/15/17 13:59 Last Admin: 02/15/17 13:22 Dose: Not Given - Allergies Allergies/Adverse Reactions: lisinopril Adverse Reaction (Severe, Verified 02/13/17 08:42) Syncope - Diet/Activity Discharge Diet: Cardiac, Diabetic Hospital Course Hospital Course: Patient reports a decreased appetite and fatigue for approximately a month with worsening dyspnea over the last week that became suddenly intolerable early in the morning. He was seen in the ED approximately a week ago for a similar complaint and was offered an admission for cardiac workup at that time which he declined. He was admitted for CHF exacerbation on BiPAP with gentle diuresis with IV Lasix. routine labs demonstrated an INR of 4.57 and so his coumadin was held. AM labs demonstrated a Hgb drop from 8.9 to 7.5; not a result of hemodilution as he did not receive IVF 2/2 CHF. His exam was benign and while in discussion with patient, he admitted to "black stools for a long while now." Additionally , he reported that he was taking 6-7 doses of ASA daily for back pain. His INR was reversed with FFP and Vit K and he was given 2 units of PRBC. Surgery was consulted and advised pt would benefit from endoscopy. Dr. Beal at [facility] was contacted and agreed to accept patient. He will be transferred for continued care. Physical Exam Vital Signs: Temp Pulse Resp BP Pulse Ox 97.3 F 72 20 117/50 L 100 02/15/17 11:49 02/15/17 11:49 02/15/17 11:49 02/15/17 11:49 02/15/17 11:49 Intake & Output 02/14/17 02/15/17 02/16/17 06:59 06:59 06:59 Intake Total 620 2983 Balance 620 2983 Weight 84.9 kg 84.8 kg General appearance: PRESENT: no acute distress, obese, well-developed, well- nourished Head exam: PRESENT: atraumatic, normocephalic Eye exam: PRESENT: conjunctiva pink, EOMI, PERRLA. ABSENT: scleral icterus Ear exam: PRESENT: normal external ear exam Mouth exam: PRESENT: moist, tongue midline Neck exam: ABSENT: carotid bruit, JVD, lymphadenopathy, thyromegaly Respiratory exam: PRESENT: clear to auscultation salvador, symmetrical, other - Currently on BiPAP. ABSENT: rales, rhonchi, wheezes Cardiovascular exam: PRESENT: RRR. ABSENT: diastolic murmur, rubs, systolic murmur Pulses: PRESENT: normal dorsalis pedis pul Vascular exam: PRESENT: normal capillary refill GI/Abdominal exam: PRESENT: normal bowel sounds, soft. ABSENT: distended, guarding, mass, organolmegaly, rebound, tenderness Rectal exam: PRESENT: black stool - per pt Extremities exam: PRESENT: full ROM. ABSENT: calf tenderness, clubbing, pedal edema Neurological exam: PRESENT: alert, awake, oriented to person, oriented to place , oriented to time, oriented to situation, CN II-XII grossly intact. ABSENT: motor sensory deficit Psychiatric exam: PRESENT: appropriate affect, normal mood. ABSENT: homicidal ideation, suicidal ideation Skin exam: PRESENT: dry, intact, pallor, warm. ABSENT: cyanosis, rash Results Laboratory Results: 02/15/17 05:14 02/15/17 05:14 02/14/17 02/15/17 02/15/17 06:37 05:14 05:14 WBC 8.6 RBC 3.71 L Hgb 9.8 L D Hct 28.8 L MCV 78 L MCH 26.5 L MCHC 34.1 RDW 19.1 H Plt Count 218 Sodium Potassium Chloride Carbon Dioxide Anion Gap BUN Creatinine Est GFR ( Amer) Est GFR (Non-Af Amer) Glucose Calcium Total Bilirubin 1.1 AST 22 ALT 33 Alkaline Phosphatase 478 H Total Protein 5.4 L Albumin 2.9 L Blood Type O POSITIVE Antibody Screen NEGATIVE 02/15/17 05:14 WBC RBC Hgb Hct MCV MCH MCHC RDW Plt Count Sodium 140.8 Potassium 4.1 Chloride 103 Carbon Dioxide 26 Anion Gap 12 BUN 33 H Creatinine 1.71 H Est GFR ( Amer) 47 L Est GFR (Non-Af Amer) 39 L Glucose 77 Calcium 8.9 Total Bilirubin AST ALT Alkaline Phosphatase Total Protein Albumin Blood Type Antibody Screen 02/13/17 02/13/17 02/13/17 16:00 16:00 23:00 Creatine Kinase 28 L 28 L CK-MB (CK-2) 1.25 Troponin I 0.073 NT-Pro-B Natriuret Pep 02/13/17 02/14/17 02/14/17 23:00 05:07 05:07 Creatine Kinase 23 L CK-MB (CK-2) 1.45 Troponin I 0.060 NT-Pro-B Natriuret Pep 7340 H 02/14/17 05:07 Creatine Kinase CK-MB (CK-2) 1.35 Troponin I 0.045 NT-Pro-B Natriuret Pep Impressions: Chest CT 02/13/17 00:00 IMPRESSION: 1. Bilateral airspace disease. This may be due to pneumonia. However presence of mediastinal adenopathy and bone metastasis suspicious for underlying malignancy either intra or extra thoracic. 2. Stable left ventricular pseudoaneurysm. Chest X-Ray 02/15/17 00:00 IMPRESSION: Asymmetric alveolar and interstitial infiltrates on the right, similar compared to 02/13/2017
--- NOTE | 2017-02-15 17:17 | PDOC PROGRESS REPORT ---
Subjective Progress Note for:: 02/15/17 Subjective:: Patient seems to be doing better with gradual improvement. Pt is denying any chest arm or neck discomfort. Patient denying any PND, orthopnea. Patient denied any sustained palpitations, dizziness, syncope, near syncope. Patient denying any fever chills. Patient denying any other significant discomfort. Patient is maintaining AV paced rhythm Review of systems: Rest review of systems negative. Medications: Medications have been reviewed. Physical Exam Vital Signs: Temp Pulse Resp BP Pulse Ox 97.3 F 84 20 117/50 L 100 02/15/17 11:49 02/15/17 14:00 02/15/17 11:49 02/15/17 11:49 02/15/17 11:49 Intake & Output 02/14/17 02/15/17 02/16/17 06:59 06:59 06:59 Intake Total 620 2983 Balance 620 2983 Weight 84.9 kg 84.8 kg Exam: GENERAL: well-nourished and in no acute distress. Alert and oriented x3 HEAD: Atraumatic, normocephalic. EYES: Pupils equal round and reactive to light, extraocular movements intact, sclera anicteric, conjunctiva are normal. ENT: TMs normal, nares patent, oropharynx clear without exudates. Moist mucous membranes. No oral ulcerations or bleeding gums noted NECK: supple without lymphadenopathy. Trachea is central. No cervical or axillary lymphadenopathy noted. Carotids are 2+, JVD WNL LUNGS: Respiration seems nonlabored, no significant accessory muscle action noted. Bibasilar fine crackles are noted. CHEST: Palpation of the chest wall shows no significant chest wall tenderness. No other significant abnormalities noted. Defibrillator noted on left side. HEART: [place] NURSE RESEARCH, No PSH, 1/6 BLAS aortic area, 1/6 cobian systolic murmur mitral area, no rubs, no gallops. ABDOMEN: Soft, no significant tenderness appreciated, normoactive bowel sounds. No guarding, no rebound. No rigidity noted . No masses appreciated. EXTREMITIES: Pedal pulses are 1-2+, no calf tenderness noted. No clubbing or cyanosis.trace to 1+ pedal edema noted NEUROLOGICAL: Focused neurological exam showed no significant neurologic deficit. Normal speech, no focal weakness appreciated. PSYCH: Normal mood, normal affect. Judgment and insight within normal limits. SKIN: No significant ecchymosis, rash, ulcerations or signs of pruritus noted. MUSCULOSKELETAL EXAM: No significant joint swelling noted. Results Laboratory Results: 02/15/17 05:14 02/15/17 05:14 02/14/17 02/15/17 02/15/17 06:37 05:14 05:14 WBC 8.6 RBC 3.71 L Hgb 9.8 L D Hct 28.8 L MCV 78 L MCH 26.5 L MCHC 34.1 RDW 19.1 H Plt Count 218 Sodium Potassium Chloride Carbon Dioxide Anion Gap BUN Creatinine Est GFR ( Amer) Est GFR (Non-Af Amer) Glucose Calcium Total Bilirubin 1.1 AST 22 ALT 33 Alkaline Phosphatase 478 H Total Protein 5.4 L Albumin 2.9 L Blood Type O POSITIVE Antibody Screen NEGATIVE 02/15/17 05:14 WBC RBC Hgb Hct MCV MCH MCHC RDW Plt Count Sodium 140.8 Potassium 4.1 Chloride 103 Carbon Dioxide 26 Anion Gap 12 BUN 33 H Creatinine 1.71 H Est GFR ( Amer) 47 L Est GFR (Non-Af Amer) 39 L Glucose 77 Calcium 8.9 Total Bilirubin AST ALT Alkaline Phosphatase Total Protein Albumin Blood Type Antibody Screen 02/13/17 02/13/17 02/13/17 16:00 16:00 23:00 Creatine Kinase 28 L 28 L CK-MB (CK-2) 1.25 Troponin I 0.073 NT-Pro-B Natriuret Pep 02/13/17 02/14/17 02/14/17 23:00 05:07 05:07 Creatine Kinase 23 L CK-MB (CK-2) 1.45 Troponin I 0.060 NT-Pro-B Natriuret Pep 7340 H 02/14/17 05:07 Creatine Kinase CK-MB (CK-2) 1.35 Troponin I 0.045 NT-Pro-B Natriuret Pep EKG Comments: Telemetry strips shows AV paced rhythm. No significant tachycardia or bradycardia arrhythmias noted. Impressions: Chest CT 02/13/17 00:00 IMPRESSION: 1. Bilateral airspace disease. This may be due to pneumonia. However presence of mediastinal adenopathy and bone metastasis suspicious for underlying malignancy either intra or extra thoracic. 2. Stable left ventricular pseudoaneurysm. Chest X-Ray 02/15/17 00:00 IMPRESSION: Asymmetric alveolar and interstitial infiltrates on the right, similar compared to 02/13/2017 Status: Image reviewed by me - Chest x-ray showed improvement in CHF. Assessment & Plan - Diagnosis (1) Acute on chronic combined systolic (congestive) and diastolic (congestive) heart failure Is this a current diagnosis for this admission?: Yes (2) Coronary artery disease Qualifiers: Coronary Disease-Associated Artery/Lesion type: [place] artery [place] vs. transplanted heart: [place] heart Associated angina: without angina Qualified Code(s): I25.10 - Atherosclerotic heart disease of [place] coronary artery without angina pectoris (3) Hypertension Qualifiers: Hypertension type: essential hypertension Qualified Code(s): I10 - Essential (primary) hypertension Is this a current diagnosis for this admission?: Yes (4) CKD (chronic kidney disease), stage III Is this a current diagnosis for this admission?: Yes (5) Diabetes mellitus type 2 in obese Is this a current diagnosis for this admission?: Yes (6) HLD (hyperlipidemia) Qualifiers: Hyperlipidemia type: unspecified Qualified Code(s): E78.5 - Hyperlipidemia , unspecified - Notes Notes: Patient on list for transfer to tertiary care for GI workup for anemia. Discussed with patient and patient's son, further improvement in his clinical condition can be made if his defibrillator is upgraded to a biventricular defibrillator. He was advised to ask this of the tertiary care physician and director corporate sales. Overall patient seems significantly improved. He is still wearing bilevel therapy. Recommend gradual institution of GAYLE inhibitor/ARB/entresto, spironolactone, digoxin etc. as tolerated. Patient hemoglobin has come back over 9 g percent therefore stable. Discussed that I will be happy to follow patient in the office should he decide not to travel to [place]. Patient to report any further problems. - Time Time with patient: Greater than 35 minutes - CODE STATUS was discussed, patient remains full code. Surrogate decision-maker unchanged. Multiple medical problems were addressed. More than 50% of the time spent coordinating care, discussing management plans with involved caregivers. Management plans discussed with involved personnels. Medical decision making was of moderate to high complexity, patient's has multiple comorbidities. Medications reviewed and adjusted accordingly: Yes
== END 2017-02-15 15:46 | disposition short-term general hospital (02) | DRG 291 ==
LOC: ER 07:42 → EH 11:40 → UNDOADMIN 11:40 → EH 12:01 → 3N 14:17
PROC: 5A09357 Assistance with Respiratory Ventilation, Less than 24 Consecutive Hours, Continuous Positive Airway Pressure (ICD-10-PCS; principal; 2017-02-13)
PROC: 30233N1 Transfusion of Nonautologous Red Blood Cells into Peripheral Vein, Percutaneous Approach (ICD-10-PCS; 2017-02-14)
PROC: 30233K1 Transfusion of Nonautologous Frozen Plasma into Peripheral Vein, Percutaneous Approach (ICD-10-PCS; 2017-02-14)
PROC: 30233N1 Transfusion of Nonautologous Red Blood Cells into Peripheral Vein, Percutaneous Approach (ICD-10-PCS; 2017-02-15)
DX: I13.0 Hypertensive heart and chronic kidney disease with heart failure and stage 1 through stage 4 chronic kidney disease, or unspecified chronic kidney disease (principal); I50.43 Acute on chronic combined systolic (congestive) and diastolic (congestive) heart failure; D62 Acute posthemorrhagic anemia; K92.2 Gastrointestinal hemorrhage, unspecified; E87.5 Hyperkalemia; R09.02 Hypoxemia; E11.22 Type 2 diabetes mellitus with diabetic chronic kidney disease; N18.3 Chronic kidney disease, stage 3 (moderate); D63.1 Anemia in chronic kidney disease; I48.2 Chronic atrial fibrillation; I25.10 Atherosclerotic heart disease of native coronary artery without angina pectoris; I25.2 Old myocardial infarction; E78.5 Hyperlipidemia, unspecified; K21.9 Gastro-esophageal reflux disease without esophagitis; Z79.84 Long term (current) use of oral hypoglycemic drugs; Z79.01 Long term (current) use of anticoagulants; Z79.82 Long term (current) use of aspirin; Z79.899 Other long term (current) drug therapy; Z95.1 Presence of aortocoronary bypass graft; Z95.810 Presence of automatic (implantable) cardiac defibrillator; Z85.828 Personal history of other malignant neoplasm of skin; Z88.8 Allergy status to other drugs, medicaments and biological substances
CPT/HCPCS: 36415; 36430; 71010; 71250; 80048; 80053; 80076; 80162; 81001; 82550; 82553; 82803; 82962; 83605; 83735; 83880; 84484; 85025; 85027; 85610; 86850; 86900; 86901; 86920; 87040; 87086; 87088; 87186; 93005; 93010; 94640; 94660; 96365; 96367; 96368; 96375; 99285; 99291; J0610; J0692; J1815; J1940; J1956; J3370; J3430; J3475; J3490; J7620; P9016; P9017; S0164